=== PATIENT | female | born 1960 | race African-American/Black ===

== ENCOUNTER → 2018-04-10 | Outpatient (CLI) | payer OTHER ==
[2018-04-10 15:23] LABS: ABSOLUTE EOSINOPHILS # (AUTO) 0.1 10^3/uL (0.0-0.6); ABSOLUTE MONOCYTES (AUTO) 0.6 10^3/uL (0.1-1.4); ABSOLUTE NEUT (AUTO) 1.8 10^3/uL (1.7-8.2); BASOPHILS % (AUTO) 0.5 % (0-2); EOSINOPHILS % (AUTO) 1.6 % (0-6); HEMATOCRIT 40.1 % (36.0-47.0); HEMOGLOBIN 13.8 g/dL (12.0-15.5); LYMPHOCYTES % (AUTO) 43.5 % (13-45); MEAN CORPUSCULAR HGB CONC 34.5 g/dL (32.0-36.0); MEAN CORPUSCULAR VOLUME 90 fl (80-97); MONOCYTES % (AUTO) 14.1 % (3-13); PLATELET COUNT 245 10^3/uL (150-450); RED BLOOD COUNT 4.46 10^6/uL (3.72-5.28); SEGMENTED NEUTROPHILS % (AUTO) 40.3 % (42-78); TOTAL CELLS COUNTED % (AUTO) 100 %; WHITE BLOOD COUNT 4.5 10^3/uL (4.0-10.5)
[2018-04-10 16:05] LABS: ALANINE AMINOTRANSFERASE 8 U/L (9-52); ALBUMIN 4.4 g/dL (3.5-5.0); ALKALINE PHOSPHATASE 91 U/L (38-126); ANION GAP 13 (5-19); ASPARTATE AMINO TRANSFERASE 14 U/L (14-36); BILIRUBIN,DIRECT 0.2 mg/dL (0.0-0.4); BILIRUBIN,TOTAL 0.2 mg/dL (0.2-1.3); BLOOD UREA NITROGEN 12 mg/dL (7-20); CARBON DIOXIDE 25 mmol/L (22-30); CHLORIDE 106 mmol/L (98-107); GLUCOSE 99 mg/dL (75-110); POTASSIUM 4.3 mmol/L (3.6-5.0); SODIUM 143.5 mmol/L (137-145); TOTAL PROTEIN 7.7 g/dL (6.3-8.2)
== END ==
LOC: CCC 14:30
DX: Z13.9 Encounter for screening, unspecified (principal)
CPT/HCPCS: 36415; 80053; 83036; 84443; 85025

== ENCOUNTER → 2018-04-11 | Outpatient (CLI) | payer OTHER ==
[2018-04-11 15:19] LABS: ABSOLUTE EOSINOPHILS # (AUTO) 0.1 10^3/uL (0.0-0.6); ABSOLUTE LYMPHOCYTES (AUTO) 2.5 10^3/uL (0.5-4.7); ABSOLUTE MONOCYTES (AUTO) 0.6 10^3/uL (0.1-1.4); ABSOLUTE NEUT (AUTO) 1.3 10^3/uL (1.7-8.2); BASOPHILS % (AUTO) 0.9 % (0-2); EOSINOPHILS % (AUTO) 1.1 % (0-6); HEMATOCRIT 41.7 % (36.0-47.0); HEMOGLOBIN 14.2 g/dL (12.0-15.5); LYMPHOCYTES % (AUTO) 55.1 % (13-45); MEAN CORPUSCULAR HEMOGLOBIN 30.6 pg (27.0-33.4); MEAN CORPUSCULAR HGB CONC 34.1 g/dL (32.0-36.0); MEAN CORPUSCULAR VOLUME 90 fl (80-97); MONOCYTES % (AUTO) 13.3 % (3-13); PLATELET COUNT 250 10^3/uL (150-450); RED BLOOD COUNT 4.66 10^6/uL (3.72-5.28); RED CELL DISTRIBUTION WIDTH 14.3 % (11.5-14.0); SEGMENTED NEUTROPHILS % (AUTO) 29.6 % (42-78); TOTAL CELLS COUNTED % (AUTO) 100 %; WHITE BLOOD COUNT 4.5 10^3/uL (4.0-10.5)
[2018-04-11 15:41] LABS: ALANINE AMINOTRANSFERASE 9 U/L (9-52); ALBUMIN 4.6 g/dL (3.5-5.0); ALKALINE PHOSPHATASE 78 U/L (38-126); ANION GAP 9 (5-19); ASPARTATE AMINO TRANSFERASE 15 U/L (14-36); BILIRUBIN,DIRECT 0.2 mg/dL (0.0-0.4); BILIRUBIN,TOTAL 0.5 mg/dL (0.2-1.3); BLOOD UREA NITROGEN 11 mg/dL (7-20); CALCIUM 9.9 mg/dL (8.4-10.2); CARBON DIOXIDE 25 mmol/L (22-30); CHLORIDE 106 mmol/L (98-107); CHOLESTEROL 229.11 mg/dL (0-200); GLUCOSE 96 mg/dL (75-110); POTASSIUM 4.1 mmol/L (3.6-5.0); SODIUM 139.8 mmol/L (137-145); TOTAL PROTEIN 7.7 g/dL (6.3-8.2); TRIGLYCERIDES 108 mg/dL (<150)
[2018-04-11 15:52] LABS: DIRECT LDL 114 mg/dL (<100)
== END ==
LOC: OD 14:31
DX: Z13.9 Encounter for screening, unspecified (principal)
CPT/HCPCS: 36415; 80053; 80061; 83036; 84443; 85025

== ENCOUNTER 2018-07-04 12:57 | Emergency (ER) | payer SELFPAY ==
[2018-07-04] MEDS ORDERED: ONDANSETRON HCL INJ/PF 4 MG/2 ML SDV IV ONE (13:36)
[2018-07-04] MEDS ORDERED: NORMAL SALINE 1000 ML 1,000 ML IV ONE (13:36)
[2018-07-04] MEDS ORDERED: ACETAMINOPHEN 325 MG TABLET PO ONE (13:36)
--- NOTE | 2018-07-04 13:37 | ER Document Report ---
ED Medical Screen (RME) - General Chief Complaint: Head Injury Stated Complaint: LUMP ON FOREHEAD Time Seen by Provider: 07/04/18 13:26 Primary Care Provider: MARY ALICE BURDICK [Primary Care Provider] - Follow up as needed Mode of Arrival: Ambulatory Information source: Patient Notes: Patient presents complaining of head injury 3 weeks ago. Patient states that headache pain has gradually worsened over the past 3 weeks. Patient states that 3 weeks ago she got out of the shower slipped and fell hitting her head on the toilet. Patient states that she did not have any loss of consciousness at the time. Patient denies any initial nausea or vomiting although states that over the past week she has had nausea and vomited 2 days ago. Patient complains of h eadache and fatigue. I have greeted and performed a rapid initial assessment of this patient. A comprehensive ED assessment and evaluation of the patient, analysis of test results and completion of the medical decision making process will be conducted by additional ED providers. TRAVEL OUTSIDE OF THE [place] IN LAST 30 DAYS: No - Related Data Allergies/Adverse Reactions: amoxicillin [Amoxicillin] Allergy (Verified 07/04/18 13:01) ibuprofen Allergy (Verified 07/04/18 13:01) Penicillins Allergy (Verified 07/04/18 13:01) Past Medical History - Past Medical History Cardiac Medical History: Reports: Hx Hypertension Pulmonary Medical History: Reports: Hx Asthma Renal/ Medical History: Denies: Hx Peritoneal Dialysis Past Surgical History: Reports: Hx Hysterectomy - Immunizations Hx Diphtheria, Pertussis, Tetanus Vaccination: Yes Physical Exam - Vital signs Vitals: Temp Pulse Resp BP Pulse Ox 98.7 F 110 H 18 144/102 H 97 07/04/18 13:13 07/04/18 13:13 07/04/18 13:13 07/04/18 13:13 07/04/18 13:13 - Neurological Neuro grossly intact: Yes Orientation: AAOx4 [place] Coma Scale Eye Opening: Spontaneous [place] Coma Scale Verbal: Oriented [place] Com[place] Scale Motor: Obeys Commands [place] Coma Scale Total: 15 Course - Vital Signs Vital signs: Temp Pulse Resp BP Pulse Ox 98.7 F 110 H 18 144/102 H 97 07/04/18 13:13 07/04/18 13:13 07/04/18 13:13 07/04/18 13:13 07/04/18 13:13 Doctor's Discharge - Discharge Referrals: [facility] [Primary Care Provider] - Follow up as needed
--- NOTE | 2018-07-04 15:04 | ER Document Report ---
ED Head/Face/Scalp Injury - General Chief Complaint: Head Injury Stated Complaint: LUMP ON FOREHEAD Time Seen by Provider: 07/04/18 13:26 [facility] [NO LOCAL MD] - Follow up as needed Mode of Arrival: Ambulatory Information source: Patient Notes: 58-year-old female presents to ED for complaint of a head injury 3 weeks ago when she fell in the shower. She states she slipped and fell. She states she has had a knot on her head which is been painful since then. She states she has had some nausea and vomiting off and on over the past week. She states the last time she vomited was 2 days ago. She states she does have a intermittent headache with pain in the face in the area where the hematoma is. TRAVEL OUTSIDE OF THE [place] IN LAST 30 DAYS: No - HPI Patient complains to provider of: Contusion, Injury, Pain, Swelling Injury to: Forehead Location of problem: Forehead Occurred: Other - 3 days Where: Home, Indoors Timing: Still present Context: Fell Loss consciousness: No loss of consciousness Remembers: Injury, Coming to hospital - Related Data Allergies/Adverse Reactions: amoxicillin [Amoxicillin] Allergy (Verified 07/04/18 13:01) ibuprofen Allergy (Verified 07/04/18 13:01) Penicillins Allergy (Verified 07/04/18 13:01) Past Medical History - General Information source: Patient - Social History Smoking Status: Current Every Day Smoker Cigarette use (# per day): Yes - 1/3 ppd Chew tobacco use (# tins/day): No Smoking Education Provided: Yes - 4 min Frequency of alcohol use: Rare Drug Abuse: None Family History: Reviewed & Not Pertinent Patient has suicidal ideation: No Patient has homicidal ideation: No - Past Medical History Cardiac Medical History: Reports: Hx Hypertension Pulmonary Medical History: Reports: Hx Asthma Neurological Medical History: Reports: Hx Migraine Endocrine Medical History: Reports: None Renal/ Medical History: Reports: None Malignancy Medical History: Reports: None GI Medical History: Reports: None Musculoskeletal Medical History: Reports Hx Arthritis Skin Medical History: Reports None Psychiatric Medical History: Reports: None Traumatic Medical History: Reports: None Infectious Medical History: Reports: None Past Surgical History: Reports: Hx Hysterectomy - Immunizations Hx Diphtheria, Pertussis, Tetanus Vaccination: Yes Review of Systems - Review of Systems Constitutional: No symptoms reported EENT: No symptoms reported Cardiovascular: No symptoms reported Respiratory: No symptoms reported Gastrointestinal: Nausea, Vomiting Genitourinary: No symptoms reported Female Genitourinary: No symptoms reported Musculoskeletal: No symptoms reported Skin: No symptoms reported Hematologic/Lymphatic: No symptoms reported Neurological/Psychological: Headaches. denies: Lost consciousness -: Yes All other systems reviewed and negative Physical Exam - Vital signs Vitals: Temp Pulse Resp BP Pulse Ox 98.7 F 110 H 18 144/102 H 97 07/04/18 13:13 07/04/18 13:13 07/04/18 13:13 07/04/18 13:13 07/04/18 13:13 Interpretation: Normal - General General appearance: Appears well, Alert - HEENT Head: Ecchymosis, Tenderness Eyes: Normal Pupils: PERRL Ears: Normal External canal: Normal Tympanic membrane: Normal Sinus: Normal Nasal: Normal Mouth/Lips: Normal Mucous membranes: Normal Pharynx: Normal Neck: Normal - Respiratory Respiratory status: No respiratory distress Chest status: Nontender Breath sounds: Normal Chest palpation: Normal - Cardiovascular Rhythm: Regular Heart sounds: Normal auscultation Murmur: No - Abdominal Inspection: Normal Distension: No distension Bowel sounds: Normal Tenderness: Nontender Organomegaly: No organomegaly - Back Back: Normal, Nontender - Extremities General upper extremity: Normal inspection, Nontender, Normal color, Normal ROM, Normal temperature General lower extremity: Normal inspection, Nontender, Normal color, Normal ROM, Normal temperature, Normal weight bearing. 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 Joyce is the patient states that her headache is worse than her normal headaches. She does have a hematoma to the left forehead. She states she fell 3 days ago. Patient was given Tylenol and Zofran as well as IV fluids. Her pulse is within normal limits blood pressure is normal. He recommended go ahead and do the CAT scan. CAT scan was negative except for the hematoma that was obvious on her forehead. Patient was discharged home. - Vital Signs Vital signs: Temp Pulse Resp BP Pulse Ox 98.7 F 91 18 133/75 H 98 07/04/18 14:56 07/04/18 15:54 07/04/18 15:54 07/04/18 15:54 07/04/18 15:54 Discharge - Discharge Clinical Impression: head injury 3 days ago Traumatic hematoma of forehead Qualifiers: Encounter type: initial encounter Qualified Code(s): S00.83XA - Contusion of other part of head, initial encounter Condition: Stable Disposition: ADMITTED INPATIENT Additional Instructions: CONTUSION: Your injury has resulted in a contusion -- a crushing of the deep tissues. No injury to important structures was detected during the physician's exam. Contusions vary in the amount of pain they cause, and in the length of time required for healing. Typically, the area will become bruised, and will remain painful to touch for two or three weeks. However, most patients are back to working and playing within a few days. After the initial period of rest and cold-packs, your symptoms (together with the doctor's recommendations) will determine how rapidly you can get back to full activity. Usually this means "do what feels okay, but don't do things that hurt." If re-examination was recommended, it's important to follow up as instructed. Call the doctor or return any time if pain increases, if swelling becomes severe, if you develop numbness or weakness in an injured extremity, or if any other alarming symptoms occur. USE OF TYLENOL (ACETAMINOPHEN): Acetaminophen may be taken for pain relief or fever control. It's much safer than aspirin, offering a wider range of "safe" dosages. It is safe during . Some brand names are Tylenol, Panadol, Datril, Anacin 3, Tempra, and Liquiprin. Acetaminophen can be repeated every four hours. The following a re maximum recommended dosages: WEIGHT Dose Drops Elixir Chewable(80mg) (LBS.) drprs=droppers tsp=teaspoon 6 40 mg 0.4 ml (1/2) 6-11 80 mg 0.8 ml (full) tsp 1 tab 12-16 120 mg 1 1/2 drprs 3/4 tsp 1 1/2 tabs 17-23 160 mg 2 drprs 1 tsp 2 tabs 24-30 240 mg 3 drprs 1 1/2 tsp 3 tabs 30-35 320 mg 2 tsp 4 tabs 36-41 360 mg 2 1/4 tsp 4 1/2 tabs 42-47 400 mg 2 1/2 tsp 5 tabs 48-53 480 mg 3 tsp 6 tabs 54-59 520 mg 3 1/4 tsp 6 1/2 tabs 60-64 560 mg 3 1/2 tsp 7 tabs 65-70 600 mg 3 3/4 tsp 7 1/2 tabs 71-76 640 mg 4 tsp 8 tabs 77-82 720 mg 4 1/2 tsp 9 tabs 83-88 800 mg 5 tsp 10 tabs >89 pounds or adults 650 mg to 900 mg Acetaminophen can be repeated every four hours. Maximum dose not to exceed 4000 mg a day. These maximum recommended dosages are slightly higher than the dosages written on the product container, but these dosages are very safe and below the toxic dosage for acetaminophen. ICE PACKS: Apply ice packs frequently against the painful area. Many different schedules are recommended, such as "20 minutes on, 20 minutes off" or "one hour ice, two hours rest." If you need to work, you may need to go longer between ice treatments. You should plan to have the area ice packed AT LEAST one fourth of the time. The ice should be applied over the wrap, tape, or splint, or over a layer of cloth -- not directly against the skin. Some ice bags have a built-in cloth and can be put directly on the skin. Antinausea Medication You have been given a medication to suppress nausea and vomiting. This type of medication can be given as a shot, pill, or suppository. It will usually last for many hours. Pills and shots usually last six to eight hours, suppositories last about 12 hours. For the typical illness, only one or two doses of the medication may be necessary. Mild lightheadedness may occur. This type of medicine can cause drowsiness. Do not drive or operate dangerous machinery while under its influence. Do not mix with alcohol. See your doctor at once if you have muscle spasms or tightness, or uncontrollable motions (particularly of the neck, mouth, or jaw). Persistent vomiting or severe lightheadedness should also be evaluated by the physician. FOLLOW-UP CARE: If you have been referred to a physician for follow-up care, call the physicians office for an appointment as you were instructed or within the next two days. If you experience worsening or a significant change in your symptoms, notify the physician immediately or return to the Emergency Department at any time for re-evaluation. Prescriptions: Ondansetron [Zofran Odt 4 mg Tablet] 1 tab PO Q6H #15 tab.rapdis Forms: Smoking Cessation Education [facility]errals: [facility] [NO LOCAL MD] - Follow up as needed
--- NOTE | 2018-07-04 15:41 | RADIOLOGY REPORT (SQ) ---
EXAM DESCRIPTION: CT HEAD WITHOUT COMPLETED DATE/TIME: 07/04/2018 3:26 pm REASON FOR STUDY: fall head injury headache COMPARISON: CT brain 11/01/2010 TECHNIQUE: Axial images acquired through the brain without intravenous contrast. Images reviewed wi th bone, brain and subdural windows. Additional sagittal and coronal reconstructions were generated. Images stored on PACS. All CT scanners at this facility use dose modulation, iterative reconstruction, and/or weight based d osing when appropriate to reduce radiation dose to as low as reasonably achievable (ALARA). [facility]: Dose Right [facility]: CareDose [facility]: Dose Right [facility]: Teradose 4D [facility]: [employer] RADIATION DOSE: CT Rad equipment meets quality standard of care and radiation dose reduction techniq ues were employed. CTDIvol: 53.2 mGy. DLP: 1150 mGy-cm. mGy. LIMITATIONS: None. FINDINGS: VENTRICLES: Normal size and contour. CEREBRUM: No masses. No hemorrhage. No midline shift. No evidence for acute infarction. Normal gra y/white matter differentiation. No areas of low density in the white matter. CEREBELLUM: No masses. No hemorrhage. No alteration of density. No evidence for acute infarction. EXTRAAXIAL SPACES: No fluid collections. No masses. ORBITS AND GLOBE: No intra- or extraconal masses. Normal contour of globe without masses. CALVARIUM: No fracture. PARANASAL SINUSES: No fluid or mucosal thickening. SOFT TISSUES: Left frontal scalp hematoma without underlying skull fracture or acute intracranial shala nges. OTHER: No other significant finding. IMPRESSION: Left frontal scalp hematoma without underlying skull fracture or acute intracranial sterling ges EVIDENCE OF ACUTE STROKE: NO. COMMENT: Quality ID # [id number]: Final reports with documentation of one or more dose reduction techniques (e.g., Automated exposure control, adjustment of the mA and/or kV according to patient size, use of iterative reconstruction technique) TECHNICAL DOCUMENTATION: JOB ID: [id number] [employer]- All Rights Reserved Reading location - IP/workstation name: [email or web address]
[2018-07-04 15:55] VITALS: BP 133/75
== END 2018-07-04 15:58 | disposition other institution (70) ==
LOC: ER 12:57
DX: S00.83XA Contusion of other part of head, initial encounter (principal); S09.90XA Unspecified injury of head, initial encounter; R11.2 Nausea with vomiting, unspecified; R51 Headache; R22.0 Localized swelling, mass and lump, head; W18.2XXA Fall in (into) shower or empty bathtub, initial encounter; F17.210 Nicotine dependence, cigarettes, uncomplicated; I10 Essential (primary) hypertension; J45.909 Unspecified asthma, uncomplicated
CPT/HCPCS: 99284; 96374; 70450; J2405; J7030

== ENCOUNTER → 2018-09-03 | Outpatient (CLI) | payer OTHER ==
--- NOTE | 2018-09-03 15:23 | RADIOLOGY REPORT (SQ) ---
EXAM DESCRIPTION: NM WHOLE BODY BONE SCAN COMPLETED DATE/TIME: 09/03/2018 2:42 pm REASON FOR STUDY: CONTUSION OF SCALP (S00.03XA) , ABNORMAL FINDINGS ON MR AND CT SCAN COMPARISON: CT and MRI brain studies from recently. RADIONUCLIDE AND DOSE: 21.7 millicuries Tc99m MDP. The route of agent administration: Intravenous. ADDITIONAL DRUGS AND DOSES: None. TECHNIQUE: Routine delayed images at 3 hour post radionuclide injection acquired of the bony skeleto n including anterior and posterior whole-body projections and additional focused images as needed. LIMITATIONS: None. FINDINGS: BONES: Uptake in the left frontal calvarium. This corresponds to lesion seen on recent cr anial imaging. No other suspicious bone uptake appreciated. Presumed degenerative knee and ankle ch anges. KIDNEYS: Symmetric excretion without obstruction. OTHER: No other significant finding. IMPRESSION: Abnormal focus of activity in the left frontal skull. Differential as previously descri bed, including myeloma and oligometastatic disease. However, no other foci are appreciated to sugges t widespread metastatic disease. COMMENT: Quality measure 147: Current bone scan is compared with any available plain radiographs, p rior bone scans, and CT/MRI. TECHNICAL DOCUMENTATION: JOB ID: [id number] [employer]- All Rights Reserved Reading location - IP/workstation name: [email or web address]
== END ==
LOC: RAD 10:41
PROVIDERS: ATTEND Emergency Medicine
DX: S00.03XD Contusion of scalp, subsequent encounter (principal); X58.XXXD Exposure to other specified factors, subsequent encounter
CPT/HCPCS: 78306; A9561; Q9969

== ENCOUNTER 2018-12-10 16:29 | Inpatient (IN) | payer OTHER ==
[2018-12-10] MEDS ORDERED: ONDANSETRON HCL INJ/PF 4 MG/2 ML SDV IV ONE (17:22)
[2018-12-10] MEDS ORDERED: NORMAL SALINE 1000 ML 1,000 ML IV ONE ×2 (17:22→23:30)
--- NOTE | 2018-12-10 17:25 | ER Document Report ---
ED Medical Screen (RME) - General Chief Complaint: Chest Pain Stated Complaint: CHEST TIGHTNESS, RIGHT ABDOMINAL PAIN Time Seen by Provider: 12/10/18 17:09 Primary Care Provider: DENISE JONES MD [Primary Care Provider] - Follow up as needed Notes: Patient is a 58-year-old female who presents to the emergency department with multiple complaints. Patient states about 2 weeks ago she developed a constant pain that is located in the center of her chest. Patient states that over the past 5 days this tightness and chest pain has gotten worse. Patient notices it is worse when walking around. Patient states she does get short of breath as well. Patient also complaint of right mid abdominal pain with nausea vomiting and diarrhea. Patient reports over the past 2 weeks she is unable to tolerate food as she is extremely nauseous by the smell. Patient reports vomiting 3 times in the past 24 hours. Patient also complains of left lower leg pain. Patient reports over the past 2 weeks she has had left lower leg swelling and redness. Patient states it is painful to touch. Patient denies a history of blood clots or long car rides or recent travel. TRAVEL OUTSIDE OF THE [place] IN LAST 30 DAYS: No - Related Data Allergies/Adverse Reactions: amoxicillin [Amoxicillin] Allergy (Verified 12/10/18 16:30) ibuprofen Allergy (Verified 12/10/18 16:30) Penicillins Allergy (Verified 12/10/18 16:30) Past Medical History - Social History Chew tobacco use (# tins/day): No Frequency of alcohol use: None Drug Abuse: None - Past Medical History Cardiac Medical History: Reports: Hx Hypertension Pulmonary Medical History: Reports: Hx Asthma Neurological Medical History: Reports: Hx Migraine Renal/ Medical History: Denies: Hx Peritoneal Dialysis Musculoskeltal Medical History: Reports Hx Arthritis Past Surgical History: Reports: Hx Hysterectomy - Immunizations Hx Diphtheria, Pertussis, Tetanus Vaccination: Yes Physical Exam - Vital signs Vitals: Temp Pulse Resp BP Pulse Ox 98.5 F 126 H 18 125/74 97 12/10/18 16:47 12/10/18 16:47 12/10/18 16:47 12/10/18 16:47 12/10/18 16:47 - Respiratory Respiratory status: No respiratory distress Chest status: Nontender Breath sounds: Normal Chest palpation: Normal - Cardiovascular Rhythm: Tachycardia Heart sounds: Normal auscultation, S1 appreciated, S2 appreciated Course - Re-evaluation Re-evalutation: 12/10/18 17:25 I have greeted and performed a rapid initial assessment of this patient. A comprehensive ED assessment and evaluation of the patient, analysis of test results and completion of the medical decision making process will be conducted by additional ED providers. - Vital Signs Vital signs: Temp Pulse Resp BP Pulse Ox 98.5 F 126 H 18 125/74 97 12/10/18 16:47 12/10/18 16:47 12/10/18 16:47 12/10/18 16:47 12/10/18 16:47 Doctor's Discharge - Discharge Referrals: DENISE JONES MD [Primary Care Provider] - Follow up as needed
[2018-12-10] MEDS ORDERED: METOCLOPRAMIDE HCL INJ/PF 10 MG/2 ML SDV IV ONE ×2 (17:55→22:27)
[2018-12-10 17:56] LABS: ABSOLUTE BASOPHILS # (AUTO) 0.1 10^3/uL (0.0-0.2); ABSOLUTE EOSINOPHILS # (AUTO) 0.1 10^3/uL (0.0-0.6); ABSOLUTE LYMPHOCYTES (AUTO) 1.2 10^3/uL (0.5-4.7); ABSOLUTE MONOCYTES (AUTO) 0.8 10^3/uL (0.1-1.4); ABSOLUTE NEUT (AUTO) 4.5 10^3/uL (1.7-8.2); BASOPHILS % (AUTO) 0.9 % (0-2); EOSINOPHILS % (AUTO) 1.6 % (0-6); HEMOGLOBIN 14.6 g/dL (12.0-15.5); LYMPHOCYTES % (AUTO) 17.9 % (13-45); MEAN CORPUSCULAR HEMOGLOBIN 30.1 pg (27.0-33.4); MEAN CORPUSCULAR VOLUME 89 fl (80-97); PLATELET COUNT 326 10^3/uL (150-450); RED BLOOD COUNT 4.85 10^6/uL (3.72-5.28); SEGMENTED NEUTROPHILS % (AUTO) 67.6 % (42-78); TOTAL CELLS COUNTED % (AUTO) 100 %; WHITE BLOOD COUNT 6.6 10^3/uL (4.0-10.5)
--- NOTE | 2018-12-10 18:10 | RADIOLOGY REPORT (SQ) ---
EXAM DESCRIPTION: CHEST 2 VIEWS COMPLETED DATE/TIME: 12/10/2018 6:00 pm REASON FOR STUDY: chest pain COMPARISON: 08/26/2018 EXAM PARAMETERS: NUMBER OF VIEWS: two views TECHNIQUE: Digital Frontal and Lateral radiographic views of the chest acquired. RADIATION DOSE: NA LIMITATIONS: none FINDINGS: LUNGS AND PLEURA: There appears to be a 10 mm nodular density in the right lower lobe. No infiltrate or effusion. MEDIASTINUM AND HILAR STRUCTURES: No masses or contour abnormalities. HEART AND VASCULAR STRUCTURES: Heart size is borderline. There is no pulmonary edema. BONES: No acute findings. HARDWARE: None in the chest. OTHER: No other significant finding. IMPRESSION: 1. 10 mm right pulmonary nodule. Consider CT for further evaluation. 2. Cardiomegaly without pulmonary edema. TECHNICAL DOCUMENTATION: JOB ID: [id number] [employer]- All Rights Reserved Reading location - IP/workstation name: [email or web address]
[2018-12-10 18:16] LABS: ALBUMIN 4.2 g/dL (3.5-5.0); ALKALINE PHOSPHATASE 57 U/L (38-126); ANION GAP 9 (5-19); ASPARTATE AMINO TRANSFERASE 26 U/L (14-36); BILIRUBIN,DIRECT 0.4 mg/dL (0.0-0.4); BILIRUBIN,TOTAL 0.6 mg/dL (0.2-1.3); BLOOD UREA NITROGEN 8 mg/dL (7-20); CALCIUM 9.6 mg/dL (8.4-10.2); CARBON DIOXIDE 25 mmol/L (22-30); CHLORIDE 104 mmol/L (98-107); GLUCOSE 103 mg/dL (75-110); POTASSIUM 4.2 mmol/L (3.6-5.0); TOTAL PROTEIN 7.3 g/dL (6.3-8.2)
[2018-12-10] MEDS: NORMAL SALINE 1000 ML 1,000 ML IV PRN ×2 (20:26→23:03)
--- NOTE | 2018-12-10 21:50 | RADIOLOGY REPORT (SQ) ---
EXAM DESCRIPTION: CT CHEST ANGIOGRAPHY WITHOUT THEN WITH IV CONTRAST, CT ABDOMEN PELVIS WITH IV CONTRAST COMPLETED DATE/TME: 12/10/2018 20:38 (accession [id number]), 12/10/2018 20:16 (accession [id number]) CLINICAL HISTORY: 58 years, Female, tachy pain COMPARISON: None. TECHNIQUE: CT angiography of the pulmonary arteries and CT of the abdomen and pelvis was performed following intravenous administration of contrast. Coronal and bilateral oblique maximum intensity projections (MIPS) were created. Images stored on PACS. All CT scanners at this facility use dose modulation, iterative reconstruction, and/or weight based dosing when appropriate to reduce radiation dose to as low as reasonably achievable (ALARA). [facility]: Dose Right [facility]: CareDose [facility]: Dose Right [facility]: Teradose 4D [facility]: [employer] LIMITATIONS: None. FINDINGS: Chest: Evaluation through the lungs reveals bilateral apical centrilobular lucency raising the possibility of mild/early emphysema. No focal opacity, pleural effusion or pneumothorax. There is minimal dependent basilar atelectasis and scarring. The tracheobronchial airways are patent. No significant mediastinal or axillary lymphadenopathy by CT measurement criteria. CT angiography: Diagnostic CT angiography enlargement of the main pulmonary artery measuring up to 3.5 cm concerning for pulmonary hypertension. Of the pulmonary arteries without intraluminal filling defect noted to suggest pulmonary arterial embolus. Abdomen and pelvis: The RIGHT kidney reveals diffuse perinephric stranding. A focal region of subcapsular high density is identified measuring up to 64 Hounsfield units within the inferior pole of the RIGHT kidney, also present along the anterior margin of the kidney measuring 50 Hounsfield units suggestive of subcapsular hematoma of uncertain etiology. Perinephric high density as detailed above suggestive of subcapsular hematoma of uncertain etiology. There is associated diffuse perinephric stranding with trace high density contents along the course of the renal capsule and minimally along the RIGHT paracolic gutter compatible with trace retroperitoneal hemorrhage. Focal area of nonspecific increased density within the proximal pancreas, may be within normal limits for the patient. However the possibility of small hematoma, considered less likely, cannot be completely excluded. This may be further evaluated on follow-up imaging. There is no associated peripancreatic stranding. The liver, gallbladder, pancreas, spleen, and bilateral adrenal glands are within normal limits. Subcentimeter focus of hypoattenuation present within the RIGHT lobe liver with Hounsfield contents measuring approximately 14 and size of approximately 5 mm suggestive of simple hepatic cyst. Mild perinephric stranding of the LEFT kidney and hypoattenuating lesion within the lateral aspect of the renal parenchyma with indeterminate Hounsfield units overall measuring 12 mm. The vessels are patent and normal in caliber. No abdominopelvic lymph nodes are noted to be pathologically enlarged by CT measurement criteria. The bowel is within normal limits without abnormal bowel wall thickness or bowel dilation. Diverticular disease without findings to suggest diverticulitis. No free air. No organizing abdominopelvic fluid collections. The appendix is not visualized. The osseous structures reveal degenerative change. Large volume of RIGHT anterior lateral subcutaneous fat diffuse stranding and more focal high density measuring up to 4.7 x 2.0 cm in thickness with high density components compatible with hematoma. IMPRESSION: 1. Perinephric high density as detailed above suggestive of subcapsular hematoma of uncertain etiology. There is associated diffuse perinephric stranding with trace high density contents along the course of the renal capsule and minimally along the RIGHT paracolic gutter compatible with trace retroperitoneal hemorrhage. 2. Large volume of RIGHT anterior lateral subcutaneous fat diffuse stranding and more focal high density measuring up to 4.7 x 2.0 cm in thickness with high density components compatible with hematoma. 3. Diagnostic pulmonary angiography without findings to suggest pulmonary arterial embolus. 4. The lungs are clear without focal opacity, pleural effusion or pneumothorax. 5. Bilateral apical centrilobular lucency, a nonspecific finding however raising the possibility of early or mild developing emphysema. 6. Enlargement of the main pulmonary artery measuring up to 3.5 cm concerning for pulmonary arterial hypertension. 7. Indeterminate 12 mm LEFT renal cyst. 8. Focal area of nonspecific increased density within the proximal pancreas, may be within normal limits for the patient. However the possibility of small hematoma, considered less likely, cannot be completely excluded. This may be further evaluated on follow-up imaging. There is no associated peripancreatic stranding. Critical findings were discussed with the patient's nurse Jael 12/10/2018 2046 hours. TECHNICAL DOCUMENTATION: Quality ID # 436: Final reports with documentation of one or more dose reduction techniques (e.g., Automated exposure control, adjustment of the mA and/or kV according to patient size, use of iterative reconstruction technique) copyright 2011 [employer]- All Rights Reserved
[2018-12-10] MEDS ORDERED: CEFEPIME 2 GM/D5W RTU 2 GM/50 ML RTUPB IV ONE (22:22)
[2018-12-10] MEDS ORDERED: VANCOMYCIN HCL INJ 1000 MG VIAL IV ONE (22:50)
[2018-12-10] MEDS ORDERED: PANTOPRAZOLE SODIUM 40 MG VIAL IV ONE (22:59)
[2018-12-10] MEDS ORDERED: VANCOMYCIN HCL 0 MG in DEXTROSE 5%-WATER 250 ML IV NR (23:00)
--- NOTE | 2018-12-10 23:03 | ER Document Report ---
Entered by LUANA ERICKSON SCRIBE 12/10/182014 Acting as scribe for:JANI CHEATHAM DO ED General - General Chief Complaint: Chest Pain Stated Complaint: CHEST TIGHTNESS, RIGHT ABDOMINAL PAIN Time Seen by Provider: 12/10/18 17:09 Primary Care Provider: DENISE JONES MD [ACTIVE STAFF] - Follow up as needed Information source: Patient Notes: 58-year-old female who presents to the emergency department today with complaints of chest pain and abdominal pain for the last x5 days. Patient states she has been unable to eat because as soon as she does she vomits it back up. Patient also adds that she has a "friend with her" and she then proceeds to reveal a large mass in the right lower quadrant. Patient is febrile. TRAVEL OUTSIDE OF THE [place] IN LAST 30 DAYS: No - Related Data Allergies/Adverse Reactions: amoxicillin [Amoxicillin] Allergy (Verified 12/10/18 16:30) ibuprofen Allergy (Verified 12/10/18 16:30) Penicillins Allergy (Verified 12/10/18 16:30) Past Medical History - General Information source: Patient - Social History Smoking Status: Current Every Day Smoker Cigarette use (# per day): Yes Chew tobacco use (# tins/day): No Frequency of alcohol use: None Drug Abuse: None Lives with: Family Family History: Reviewed & Not Pertinent Patient has suicidal ideation: No Patient has homicidal ideation: No - Past Medical History Cardiac Medical History: Reports: Hx Hypertension Pulmonary Medical History: Reports: Hx Asthma Neurological Medical History: Reports: Hx Migraine Musculoskeletal Medical History: Reports Hx Arthritis Past Surgical History: Reports: Hx Hysterectomy - Immunizations Hx Diphtheria, Pertussis, Tetanus Vaccination: Yes Review of Systems - Review of Systems Constitutional: See HPI, Fever EENT: No symptoms reported Cardiovascular: See HPI, Chest pain Respiratory: No symptoms reported Gastrointestinal: See HPI, Abdominal pain, Nausea, Vomiting Genitourinary: No symptoms reported Female Genitourinary: No symptoms reported Musculoskeletal: No symptoms reported Skin: No symptoms reported Hematologic/Lymphatic: No symptoms reported Neurological/Psychological: No symptoms reported -: Yes All other systems reviewed and negative Physical Exam - Vital signs Vitals: Temp Pulse Resp BP Pulse Ox 98.5 F 126 H 18 125/74 97 12/10/18 16:47 12/10/18 16:47 12/10/18 16:47 12/10/18 16:47 12/10/18 16:47 Interpretation: Tachycardic - General General appearance: Alert In distress: Mild - HEENT Head: Normocephalic Eyes: Normal Pupils: PERRL - Respiratory Respiratory status: No respiratory distress Chest status: Nontender Breath sounds: Normal Chest palpation: Normal - Cardiovascular Rhythm: Regular, Tachycardia Heart sounds: Normal auscultation Murmur: No - Abdominal Inspection: Normal Distension: No distension Bowel sounds: Normal Tenderness: Tender, Guarding, Other - Right lower quadrant mass palpated. No evidence for hernia. Organomegaly: No organomegaly - Back Back: Normal, Tender, CVA tenderness - Extremities General upper extremity: Normal inspection, Nontender, Normal color, Normal ROM, Normal temperature General lower extremity: Normal inspection, Nontender, Normal color, Normal ROM, Normal temperature, Normal weight bearing. No: Sulma's sign - Neurological Neuro grossly intact: Yes Cognition: Normal Orientation: AAOx4 [place]pin Coma Scale Eye Opening: Spontaneous [place] Coma Scale Verbal: Oriented [place] Coma Scale Motor: Obeys Commands Crispin Coma Scale Total: 15 Speech: Normal Motor strength normal: LUE, RUE, LLE, RLE Sensory: Normal - Psychological Associated symptoms: Other - Odd affect - Skin Skin Temperature: Warm Skin Moisture: Diaphoretic Skin Color: Normal Course - Re-evaluation Re-evalutation: 12/10/18 22:00 Urology at [facility]. 22:20 Trauma surgeon at [facility] called--discussed patient and CT reviewed results. asked general surgery to consult and will accept for transfer if appropriate. 22:30 Discussed with general surgery. Will see patient. 22:40 Discussed with urology at [facility]. Unlikely need for urology intervention. Would monitor. No evidence for renal abscess. 22:50 Dr. Lacey has come to see the patient and will admit. Patient is a 58-year-old female who comes in complaining of chest abdomen pelvis pain and vomiting. No evidence for PE on chest CT. Concern for subcapsular hematoma of right kidney. Concern for subcutaneous collection on right. Patient will be admitted to the surgery service here. Blood work benign. Urine pending. Cefepime and vancomycin ordered for possible subcutaneous fluid collection consistent with abscess. Patient is agreeable to this plan. Patient is still having nausea. Initial heart rate 130s now down to 109. - Vital Signs Vital signs: Temp Pulse Resp BP Pulse Ox 98.7 F 126 H 23 H 134/73 H 97 12/10/18 20:01 12/10/18 16:47 12/10/18 20:01 12/10/18 20:01 12/10/18 20:01 - Laboratory Result Diagrams: 12/10/18 17:32 12/10/18 17:32 Laboratory results interpreted by me: 12/10/18 17:32 Creatinine 0.44 L - Diagnostic Test Radiology reviewed: Reports reviewed - EKG Interpretation by Me EKG shows normal: Sinus rhythm Rate: Tachycardia Critical Care Note - Critical Care Note Total time excluding time spent on procedures (mins): 45 - Evaluation and management of tachycardic patient with abdominal pain and possible bleed versus infection on CT, counseling patient, consultation with specialists Discharge - Discharge Clinical Impression: Tachycardia, SIRS (systemic inflammatory response syndrome) Abdominal pain Qualifiers: Abdominal location: unspecified location Qualified Code(s): R10.9 - Unspecified abdominal pain Condition: Stable Disposition: ADMITTED INPATIENT Admitting Provider: Surgicalist - [facility] Unit Admitted: Surgical Floor Scribe Attestation: 12/10/18 22:58 I personally performed the services described in the documentation, reviewed and edited the documentation which was dictated to the scribe in my presence, and it accurately records my words and actions. I personally performed the services described in the documentation, reviewed and edited the documentation which was dictated to the scribe in my presence, and it accurately records my words and actions.
--- NOTE | 2018-12-10 23:17 | PDOC H&P ---
History of Present Illness Patient complains of: right sided abdominal pain, nausea, vomiting History of Present Illness: SUSANA MART is a 58 year old female with a 2-week history of right-sided subcutaneous swelling of the abdominal wall with increasing amounts of pain. She reports subjective chills, but denies fevers. The patient reports that she has recently been treated for "an infection" with prednisone for 60 days. The patient stopped taking the prednisone because she believes that she is allergic to it. Shortly after stopping her steroids, she noticed a small area in her right lateral abdominal wall subcutaneous tissue. It began the size of a nickel and continued to enlarge. She denies any history of trauma, anticoagulants, antiplatelets, subcutaneous injections, or other precipitating factors. She denies chest pain, shortness of breath, dizziness, orthostasis, melena, hematochezia, hematemesis, headache. She does report abdominal wall discomfort, nausea, vomiting, chills, malaise. Past Medical History Cardiac Medical History: Reports: Hypertension Pulmonary Medical History: Reports: Asthma Neurological Medical History: Reports: Migraine Musculoskeltal Medical History: Reports: Arthritis Past Surgical History Past Surgical History: Reports: Hysterectomy Social History Smoking Status: Current Every Day Smoker Family History Family History: Reviewed & Not Pertinent Parental Family History Reviewed: Yes Children Family History Reviewed: Yes Sibling(s) Family History Reviewed.: Yes Medication/Allergy Home Medications: Butalb/Acetaminophen/Caffeine [Fioricet (50-325-40 mg) Tablet] 1 tab PO Q4HP PRN 04/08/14 Diazepam [Valium 5 mg Tablet] 5 mg PO DAILY 04/08/14 Oxycodone HCl 10 mg PO QID 04/08/14 Topiramate [Topamax] 50 mg PO 04/08/14 Ondansetron [Zofran Odt 4 mg Tablet] 1 tab PO Q6H #15 tab.rapdis 07/04/18 Oxycodone HCl/Acetaminophen [Percocet 5-325 mg Tablet] 1 - 2 tab PO Q4H PRN #30 tablet 08/26/18 Promethazine HCl [Phenergan 25 mg Tablet] 1 - 2 tab PO Q6H PRN #20 tablet 08/26/18 Allergies/Adverse Reactions: amoxicillin [Amoxicillin] Allergy (Verified 12/10/18 16:30) ibuprofen Allergy (Verified 12/10/18 16:30) Penicillins Allergy (Verified 12/10/18 16:30) Review of Systems Constitutional: PRESENT: chills Eyes: ABSENT: visual disturbances Ears: ABSENT: hearing changes Nose, Mouth, and Throat: ABSENT: sore throat Cardiovascular: ABSENT: chest pain Respiratory: ABSENT: cough Gastrointestinal: PRESENT: abdominal pain, nausea, vomiting. ABSENT: coffee ground emesis, hematemesis, hematochezia, melena Genitourinary: ABSENT: dysuria Musculoskeletal: ABSENT: back pain Integumentary: PRESENT: lesions - Subcutaneous right lower quadrant abdominal wall lesion. Neurological: PRESENT: confusion, other - Forgetfullness. ABSENT: convulsions, dizziness, paresthesias Psychiatric: ABSENT: anxiety, depression Endocrine: ABSENT: cold intolerance, heat intolerance Hematologic/Lymphatic: ABSENT: easy bleeding, easy bruising Physical Exam Vital Signs: Temp Pulse Resp BP Pulse Ox 98.7 F 126 H 23 H 134/73 H 97 12/10/18 20:01 12/10/18 16:47 12/10/18 20:01 12/10/18 20:01 12/10/18 20:01 Intake & Output 12/09/18 12/10/18 12/11/18 06:59 06:59 06:59 Intake Total 1000 Balance 1000 Weight 95.254 kg General appearance: PRESENT: obese Eye exam: PRESENT: EOMI, PERRLA. ABSENT: scleral icterus Mouth exam: PRESENT: neck supple Neck exam: ABSENT: meningismus, tenderness, thyromegaly, tracheal deviation Respiratory exam: PRESENT: clear to auscultation jared. ABSENT: chest wall tender ness Cardiovascular exam: PRESENT: tachycardia Pulses: PRESENT: normal radial pulses, normal dorsalis pedis pul Vascular exam: PRESENT: normal capillary refill. ABSENT: pallor GI/Abdominal exam: PRESENT: soft, tenderness - see skin exam. ABSENT: distended, guarding Rectal exam: PRESENT: deferred Extremities exam: PRESENT: other - mild LE edema. ABSENT: clubbing Musculoskeletal exam: PRESENT: ambulatory Neurological exam: PRESENT: alert, awake, oriented to person, oriented to place, oriented to time, oriented to situation, CN II-XII grossly intact Psychiatric exam: ABSENT: agitated, anxious, depressed Focused psych exam: ABSENT: delusional Skin exam: PRESENT: other - large, 8cm area of subcutaneous induration to the RLQ. It is TTP. Results Laboratory Results: 12/10/18 17:32 12/10/18 17:32 12/10/18 12/10/18 12/10/18 17:32 17:32 20:30 WBC 6.6 RBC 4.85 Hgb 14.6 Hct 43.0 MCV 89 MCH 30.1 MCHC 34.0 RDW 14.0 Plt Count 326 Seg Neutrophils % 67.6 Lymphocytes % 17.9 Monocytes % 12.0 Eosinophils % 1.6 Basophils % 0.9 Absolute Neutrophils 4.5 Absolute Lymphocytes 1.2 Absolute Monocytes 0.8 Absolute Eosinophils 0.1 Absolute Basophils 0.1 Sodium 138.2 Potassium 4.2 Chloride 104 Carbon Dioxide 25 Anion Gap 9 BUN 8 Creatinine 0.44 L Est GFR ( Amer) > 60 Est GFR (Non-Af Amer) > 60 Glucose 103 Lactic Acid 1.5 Calcium 9.6 Total Bilirubin 0.6 AST 26 Alkaline Phosphatase 57 Total Protein 7.3 Albumin 4.2 Lipase 228.9 12/10/18 12/10/18 17:32 20:30 Troponin I 0.065 0.064 Impressions: Chest X-Ray 12/10/18 17:22 IMPRESSION: 1. 10 mm right pulmonary nodule. Consider CT for further evaluation. 2. Cardiomegaly without pulmonary edema. Abdomen/Pelvis CT 12/10/18 20:16 IMPRESSION: 1. Perinephric high density as detailed above suggestive of subcapsular hematoma of uncertain etiology. There is associated diffuse perinephric stranding with trace high density contents along the course of the renal capsule and minimally along the RIGHT paracolic gutter compatible with trace retroperitoneal hemorrhage. 2. Large volume of RIGHT anterior lateral subcutaneous fat diffuse stranding and more focal high density measuring up to 4.7 x 2.0 cm in thickness with high density components compatible with hematoma. 3. Diagnostic pulmonary angiography without findings to suggest pulmonary arterial embolus. 4. The lungs are clear without focal opacity, pleural effusion or pneumothorax. 5. Bilateral apical centrilobular lucency, a nonspecific finding however raising the possibility of early or mild developing emphysema. 6. Enlargement of the main pulmonary artery measuring up to 3.5 cm concerning for pulmonary arterial hypertension. 7. Indeterminate 12 mm LEFT renal cyst. 8. Focal area of nonspecific increased density within the proximal pancreas, may be within normal limits for the patient. However the possibility of small hematoma, considered less likely, cannot be completely excluded. This may be further evaluated on follow-up imaging. There is no associated peripancreatic stranding. Critical findings were discussed with the patient's nurse Jael 12/10/2018 2046 hours. TECHNICAL DOCUMENTATION: Quality ID # 436: Final reports with documentation of one or more dose reduction techniques (e.g., Automated exposure control, adjustment of the mA and/or kV according to patient size, use of iterative reconstruction technique) copyright 2010 [employer]- All Rights Reserved Chest/Abdomen CTA 12/10/18 20:38 IMPRESSION: 1. Perinephric high density as detailed above suggestive of subcapsular hematoma of uncertain etiology. There is associated diffuse perinephric stranding with trace high density contents along the course of the renal capsule and minimally along the RIGHT paracolic gutter compatible with trace retroperitoneal hemorrhage. 2. Large volume of RIGHT anterior lateral subcutaneous fat diffuse stranding and more focal high density measuring up to 4.7 x 2.0 cm in thickness with high density components compatible with hematoma. 3. Diagnostic pulmonary angiography without findings to suggest pulmonary arterial embolus. 4. The lungs are clear without focal opacity, pleural effusion or pneumothorax. 5. Bilateral apical centrilobular lucency, a nonspecific finding however raising the possibility of early or mild developing emphysema. 6. Enlargement of the main pulmonary artery measuring up to 3.5 cm concerning for pulmonary arterial hypertension. 7. Indeterminate 12 mm LEFT renal cyst. 8. Focal area of nonspecific increased density within the proximal pancreas, may be within normal limits for the patient. However the possibility of small hematoma, considered less likely, cannot be completely excluded. This may be further evaluated on follow-up imaging. There is no associated peripancreatic stranding. Critical findings were discussed with the patient's nurse Jael 12/10/2018 2046 hours. TECHNICAL DOCUMENTATION: Quality ID # 436: Final reports with documentation of one or more dose reduction techniques (e.g., Automated exposure control, adjustment of the mA and/or kV according to patient size, use of iterative reconstruction technique) copyright 2010 [employer]- All Rights Reserved Assessment & Plan - Diagnosis (1) Abscess of abdominal wall Is this a current diagnosis for this admission?: Yes - Plan Summary Plan Summary: This is a 58-year-old female with an enlarging, tender, indurated area of her right lower quadrant abdominal wall. I have reviewed her CT scan. She has stranding and fluid present in the subcutaneous tissues of the right lower quadrant. The radiologist has read the scan as likely hematoma. The patient has no recent traumatic history or anticoagulant use. I believe that she is experiencing an abscess of the subcutaneous tissues in the right lower quadrant abdominal wall. It is likely been compounded by her long-term prednisone use. I recommended admission to the hospital, intravenous antibiotics, fluid resuscitation, and likely incision and drainage in the operating room tomorrow. There is also mention of perinephric stranding, which may be coincidental. I will check a urinalysis, to ensure that she does not have signs consistent with pyelonephritis. Repeat labs tomorrow. N.p.o. after midnight.
[2018-12-10 23:41] LABS: APPEARANCE,URINE CLEAR; BILIRUBIN,URINE NEGATIVE (NEGATIVE); COLOR,URINE YELLOW; GLUCOSE, URINE NEGATIVE (NEGATIVE); KETONES,URINE 80 mg/dL (NEGATIVE); LEUKOCYTE ESTERASE,URINE NEGATIVE (NEGATIVE); NITRITE,URINE NEGATIVE (NEGATIVE); PROTEIN,URINE NEGATIVE (NEGATIVE); UROBILINOGEN,URINE NEGATIVE mg/dL (<2.0)
[2018-12-10 23:41] LABS: URINE AMPHETAMINES SCREEN NEGATIVE; URINE BARBITURATES SCREEN UNCONFIRMED POSITIVE; URINE BENZODIAZEPINES SCREEN NEGATIVE; URINE COCAINE SCREEN NEGATIVE; URINE MARIJUANA (THC) SCREEN NEGATIVE; URINE METHADONE SCREEN NEGATIVE; URINE PHENCYCLIDINE SCREEN NEGATIVE
[2018-12-10 23:43] LABS: URINE SPECIFIC GRAVITY > 1.060
[2018-12-10] MEDS: MORPHINE SULFATE 10 MG/ML INJ IV PRN (23:50)
[2018-12-10] MEDS: ONDANSETRON HCL INJ/PF 4 MG/2 ML SDV IV PRN (23:51)
[2018-12-11] MEDS ORDERED: VANCOMYCIN HCL INJ 1000 MG VIAL IV PRN (01:21)
--- NOTE | 2018-12-11 01:31 | PDOC CONSULTATION ---
Consultation Consult Date: 12/10/18 Provider Consulted: MADDIE SUN Consult reason:: equivocal cardiac troponin History of Present Illness Admission Date/PCP: 12/10/18 23:12 History of Present Illness: SUSANA MART is a 58 year old female admitted by the surgical service for renal hematoma versus abscess. She was complaining at one point about some central nonradiating chest pain has been going on for 5 days. It was episodic. Currently she is pain-free. She denies any history of heart disease. I will say, that this patient's history that she provides is somewhat questionable. She says she only smokes a pack of cigarettes every 3 days but on her chest CT she had evidence of emphysema. She denies any prior cardiac history. No history of stress test. No history of cardiac catheterization. No family history of coronary artery disease. She was tachycardic when she came in. In itial troponin was 0.065 when she came in and her repeat was 0.064. As noted previously, she is pain-free. Consultation was requested because of the elevated troponin. Past Medical History Cardiac Medical History: Reports: Hypertension Pulmonary Medical History: Reports: Asthma Neurological Medical History: Reports: Migraine Musculoskeltal Medical History: Reports: Arthritis Past Surgical History Past Surgical History: Reports: Hysterectomy Social History Lives with: Family Smoking Status: Current Every Day Smoker Family History Family History: Reviewed & Not Pertinent Parental Family History Reviewed: Yes - No history of coronary artery disease Children Family History Reviewed: NA Sibling(s) Family History Reviewed.: NA Medication/Allergy Home Medications: Butalb/Acetaminophen/Caffeine [Fioricet (50-325-40 mg) Tablet] 1 tab PO Q4HP PRN 04/08/14 Diazepam [Valium 5 mg Tablet] 5 mg PO DAILY 04/08/14 Oxycodone HCl 10 mg PO QID 04/08/14 Topiramate [Topamax] 50 mg PO 04/08/14 Ondansetron [Zofran Odt 4 mg Tablet] 1 tab PO Q6H #15 tab.rapdis 07/04/18 Oxycodone HCl/Acetaminophen [Percocet 5-325 mg Tablet] 1 - 2 tab PO Q4H PRN #30 tablet 08/26/18 Promethazine HCl [Phenergan 25 mg Tablet] 1 - 2 tab PO Q6H PRN #20 tablet 08/26/18 Allergies/Adverse Reactions: amoxicillin [Amoxicillin] Allergy (Verified 12/10/18 16:30) ibuprofen Allergy (Verified 12/10/18 16:30) Penicillins Allergy (Verified 12/10/18 16:30) Review of Systems All systems: reviewed and no additional remarkable complaints except as stated - All systems were reviewed and were negative except as noted in the HPI Physical Exam Vital Signs: Temp Pulse Resp BP Pulse Ox 98.7 F 126 H 23 H 134/73 H 97 12/10/18 20:01 12/10/18 16:47 12/10/18 20:01 12/10/18 20:01 12/10/18 20:01 Intake & Output 12/09/18 12/10/18 12/11/18 06:59 06:59 06:59 Intake Total 3882 Balance 3882 Weight 95.254 kg General appearance: PRESENT: no acute distress, cooperative, disheveled, obese Head exam: PRESENT: atraumatic, normocephalic Eye exam: PRESENT: EOMI, PERRLA. ABSENT: conjunctival injection, nystagmus, scleral icterus Ear exam: PRESENT: normal external ear exam Mouth exam: PRESENT: moist, neck supple Throat exam: ABSENT: post pharyngeal erythema Neck exam: PRESENT: full ROM. ABSENT: carotid bruit, JVD, lymphadenopathy, meningismus, tenderness, thyromegaly Respiratory exam: PRESENT: clear to auscultation jared, symmetrical, unlabored. ABSENT: accessory muscle use, chest wall tenderness, crackles, prolonged expiratory phas, rhonchi, tachypnea, wheezes Cardiovascular exam: PRESENT: tachycardia Pulses: PRESENT: normal carotid pulses Vascular exam: PRESENT: normal capillary refill GI/Abdominal exam: PRESENT: normal bowel sounds, soft, tenderness - Large swol lane area right lower quadrant. ABSENT: ascites, distended, guarding, rebound Extremities exam: ABSENT: clubbing, pedal edema Musculoskeletal exam: PRESENT: normal inspection. ABSENT: deformity Neurological exam: PRESENT: alert, awake, oriented to person, oriented to place, oriented to situation, CN II-XII grossly intact. ABSENT: motor sensory deficit Psychiatric exam: PRESENT: normal mood, unusual affect Skin exam: PRESENT: dry, warm Results Laboratory Results: 12/10/18 17:32 12/10/18 17:32 12/10/18 12/10/1812/10/19 17:32 17:32 20:30 WBC 6.6 RBC 4.85 Hgb 14.6 Hct 43.0 MCV 89 MCH 30.1 MCHC 34.0 RDW 14.0 Plt Count 326 Seg Neutrophils % 67.6 Lymphocytes % 17.9 Monocytes % 12.0 Eosinophils % 1.6 Basophils % 0.9 Absolute Neutrophils 4.5 Absolute Lymphocytes 1.2 Absolute Monocytes 0.8 Absolute Eosinophils 0.1 Absolute Basophils 0.1 Sodium 138.2 Potassium 4.2 Chloride 104 Carbon Dioxide 25 Anion Gap 9 BUN 8 Creatinine 0.44 L Est GFR ( Amer) > 60 Est GFR (Non-Af Amer) > 60 Glucose 103 Lactic Acid 1.5 Calcium 9.6 Total Bilirubin 0.6 AST 26 Alkaline Phosphatase 57 Total Protein 7.3 Albumin 4.2 Lipase 228.9 Urine Color Urine Appearance Urine pH Ur Specific [place] Urine Protein Urine Glucose (UA) Urine Ketones Urine Blood Urine Nitrite Ur Leukocyte Esterase Urine WBC (Auto) Urine RBC (Auto) 12/10/18 22:45 WBC RBC Hgb Hct MCV MCH MCHC RDW Plt Count Seg Neutrophils % Lymphocytes % Monocytes % Eosinophils % Basophils % Absolute Neutrophils Absolute Lymphocytes Absolute Monocytes Absolute Eosinophils Absolute Basophils Sodium Potassium Chloride Carbon Dioxide Anion Gap BUN Creatinine Est GFR ( Amer) Est GFR (Non-Af Amer) Glucose Lactic Acid Calcium Total Bilirubin AST Alkaline Phosphatase Total Protein Albumin Lipase Urine Color YELLOW Urine Appearance CLEAR Urine pH 6.0 Ur Specific [place] > 1.060 Urine Protein NEGATIVE Urine Glucose (UA) NEGATIVE Urine Ketones 80 H Urine Blood SMALL H Urine Nitrite NEGATIVE Ur Leukocyte Esterase NEGATIVE Urine WBC (Auto) 3 Urine RBC (Auto) 4 12/10/18 12/10/18 17:32 20:30 Troponin I 0.065 0.064 Impressions: Chest X-Ray 12/10/18 17:22 IMPRESSION: 1. 10 mm right pulmonary nodule. Consider CT for further evaluation. 2. Cardiomegaly without pulmonary edema. Abdomen/Pelvis CT 12/10/18 20:16 IMPRESSION: 1. Perinephric high density as detailed above suggestive of subcapsular hematoma of uncertain etiology. There is associated diffuse perinephric stranding with trace high density contents along the course of the renal capsule and minimally along the RIGHT paracolic gutter compatible with trace retroperitoneal hemorrhage. 2. Large volume of RIGHT anterior lateral subcutaneous fat diffuse stranding and more focal high density measuring up to 4.7 x 2.0 cm in thickness with high density components compatible with hematoma. 3. Diagnostic pulmonary angiography without findings to suggest pulmonary arterial embolus. 4. The lungs are clear without focal opacity, pleural effusion or pneumothorax. 5. Bilateral apical centrilobular lucency, a nonspecific finding however raising the possibility of early or mild developing emphysema. 6. Enlargement of the main pulmonary artery measuring up to 3.5 cm concerning for pulmonary arterial hypertension. 7. Indeterminate 12 mm LEFT renal cyst. 8. Focal area of nonspecific increased density within the proximal pancreas, may be within normal limits for the patient. However the possibility of small hematoma, considered less likely, cannot be completely excluded. This may be further evaluated on follow-up imaging. There is no associated peripancreatic stranding. Critical findings were discussed with the patient's nurse Jael 12/10/2018 2046 hours. TECHNICAL DOCUMENTATION: Quality ID # 436: Final reports with documentation of one or more dose reduction techniques (e.g., Automated exposure control, adjustment of the mA and/or kV according to patient size, use of iterative reconstruction technique) copyright 2011 [employer]- All Rights Reserved Chest/Abdomen CTA 12/10/18 20:38 IMPRESSION: 1. Perinephric high density as detailed above suggestive of subcapsular hematoma of uncertain etiology. There is associated diffuse perinephric stranding with trace high density contents along the course of the renal capsule and minimally along the RIGHT paracolic gutter compatible with trace retroperitoneal hemorrhage. 2. Large volume of RIGHT anterior lateral subcutaneous fat diffuse stranding and more focal high density measuring up to 4.7 x 2.0 cm in thickness with high density components compatible with hematoma. 3. Diagnostic pulmonary angiography without findings to suggest pulmonary arterial embolus. 4. The lungs are clear without focal opacity, pleural effusion or pneumothorax. 5. Bilateral apical centrilobular lucency, a nonspecific finding however raising the possibility of early or mild developing emphysema. 6. Enlargement of the main pulmonary artery measuring up to 3.5 cm concerning for pulmonary arterial hypertension. 7. Indeterminate 12 mm LEFT renal cyst. 8. Focal area of nonspecific increased density within the proximal pancreas, may be within normal limits for the patient. However the possibility of small hematoma, considered less likely, cannot be completely excluded. This may be further evaluated on follow-up imaging. There is no associated peripancreatic stranding. Critical findings were discussed with the patient's nurse Jael 12/10/20186 hours. TECHNICAL DOCUMENTATION: Quality ID # 436: Final reports with documentation of one or more dose reduction techniques (e.g., Automated exposure control, adjustment of the mA and/or kV according to patient size, use of iterative reconstruction technique) copyright 2011 [employer]- All Rights Reserved Assessment and Plan - Diagnosis (1) Elevated troponin Is this a current diagnosis for this admission?: Yes Plan: She has some evidence of LVH on her EKG and reports to me that she takes HCTZ at home, but she says she was given HCTZ for some swelling she gets in her legs intermittently. I suspect the slightly elevated troponin is most likely from some demand ischemia from her tachycardia. She is not having any chest pain now, and I suspect the episodes that she described as chest pain may have actually been some abdominal pain. We will trend her troponins and watch her on the monitor. Depending on her clinical course, she may need an echocardiogram and a stress test, but at this particular point in time neither of those is urgent. (2) Abscess of abdominal wall Is this a current diagnosis for this admission?: Yes Plan: Management per surgery - Time Time Spent with patient: 35 or more minutes
[2018-12-11] MEDS ORDERED: VANCOMYCIN HCL 1,250 MG in DEXTROSE 5%-WATER 250 ML IV ONE ×2 (02:00→04:00)
--- NOTE | 2018-12-11 02:31 | RADIOLOGY REPORT (SQ) ---
US LOWER EXTREMITY VEINS EXAM DATE: 12/10/2018 5:22 PM CDT HISTORY: Leg pain and swelling. COMPARISON: None. TECHNIQUE: Grayscale, color Doppler, and spectral Doppler images of the left lower extremity were performed. FINDINGS: The common femoral, superficial femoral and popliteal veins are patent and compressible. Normal augmentation and color Doppler blood flow in the aforementioned veins. The visualized calf veins are also patent. IMPRESSION: No evidence of deep venous thrombosis in the left lower extremity.
[2018-12-11] MEDS: MORPHINE SULFATE 10 MG/ML INJ IV PRN ×5 (04:07→20:52)
[2018-12-11] MEDS: ONDANSETRON HCL INJ/PF 4 MG/2 ML SDV IV PRN ×4 (04:08→16:40)
[2018-12-11 05:43] LABS: ABSOLUTE EOSINOPHILS # (AUTO) 0.1 10^3/uL (0.0-0.6); ABSOLUTE LYMPHOCYTES (AUTO) 0.9 10^3/uL (0.5-4.7); ABSOLUTE MONOCYTES (AUTO) 0.5 10^3/uL (0.1-1.4); ABSOLUTE NEUT (AUTO) 3.6 10^3/uL (1.7-8.2); BASOPHILS % (AUTO) 0.2 % (0-2); EOSINOPHILS % (AUTO) 1.1 % (0-6); LYMPHOCYTES % (AUTO) 17.3 % (13-45); MEAN CORPUSCULAR HEMOGLOBIN 30.1 pg (27.0-33.4); MEAN CORPUSCULAR HGB CONC 34.1 g/dL (32.0-36.0); MEAN CORPUSCULAR VOLUME 88 fl (80-97); MONOCYTES % (AUTO) 10.1 % (3-13); PLATELET COUNT 256 10^3/uL (150-450); RED BLOOD COUNT 3.97 10^6/uL (3.72-5.28); RED CELL DISTRIBUTION WIDTH 13.7 % (11.5-14.0); SEGMENTED NEUTROPHILS % (AUTO) 71.3 % (42-78); TOTAL CELLS COUNTED % (AUTO) 100 %
[2018-12-11 05:54] LABS: ALKALINE PHOSPHATASE 44 U/L (38-126); AMYLASE 48 U/L (30-110); ANION GAP 6 (5-19); ASPARTATE AMINO TRANSFERASE 18 U/L (14-36); BILIRUBIN,DIRECT 0.3 mg/dL (0.0-0.4); BILIRUBIN,TOTAL 0.4 mg/dL (0.2-1.3); BLOOD UREA NITROGEN 7 mg/dL (7-20); CALCIUM 8.4 mg/dL (8.4-10.2); CARBON DIOXIDE 24 mmol/L (22-30); CHLORIDE 109 mmol/L (98-107); GLUCOSE 106 mg/dL (75-110); POTASSIUM 3.7 mmol/L (3.6-5.0); TOTAL PROTEIN 5.5 g/dL (6.3-8.2)
[2018-12-11] MEDS: RINGERS SOLUTION,LACTATED 1,000 ML IV PRN (08:14)
[2018-12-11] MEDS: CEFEPIME 1 GM/D5W RTU 1 GM/50 ML RTUPB IV SCH ×2 (09:31→22:55)
--- NOTE | 2018-12-11 09:33 | PDOC PROGRESS REPORT ---
Subjective Progress Note for:: 12/11/18 Subjective:: Patient states that she has been having substernal chest pain intermittently over the past couple weeks. She has also been experiencing right lateral lower abdominal wall pain with associated lump that has gotten larger but no fever no drainage. She has been on steroids for a forehead lesion for several weeks. Reason For Visit: RLQ ABSCESS Physical Exam Vital Signs: Temp Pulse Resp BP Pulse Ox 98.4 F 105 H 18 110/70 96 12/11/18 08:06 12/11/18 08:06 12/11/18 08:06 12/11/18 08:06 12/11/18 08:06 Intake & Output 12/10/18 12/11/18 12/12/18 06:59 06:59 06:59 Intake Total 3882 Balance 3882 Weight 95.2 kg General appearance: PRESENT: no acute distress, cooperative Respiratory exam: PRESENT: clear to auscultation jared Cardiovascular exam: PRESENT: tachycardia - With systolic murmur GI/Abdominal exam: PRESENT: other - Soft, nondistended, focal mild tenderness in the right lateral lower abdomen with palpable deep-seated lump with no induration and no erythema and no fluctuance Results Laboratory Results: 12/11/18 04:39 12/11/18 04:39 12/10/18 12/10/18 12/10/18 17:32 17:32 20:30 WBC 6.6 RBC 4.85 Hgb 14.6 Hct 43.0 MCV 89 MCH 30.1 MCHC 34.0 RDW 14.0 Plt Count 326 Seg Neutrophils % 67.6 Lymphocytes % 17.9 Monocytes % 12.0 Eosinophils % 1.6 Basophils % 0.9 Absolute Neutrophils 4.5 Absolute Lymphocytes 1.2 Absolute Monocytes 0.8 Absolute Eosinophils 0.1 Absolute Basophils 0.1 Sodium 138.2 Potassium 4.2 Chloride 104 Carbon Dioxide 25 Anion Gap 9 BUN 8 Creatinine 0.44 L Est GFR ( Amer) > 60 Est GFR (Non-Af Amer) > 60 Glucose 103 Lactic Acid 1.5 Calcium 9.6 Total Bilirubin 0.6 AST 26 Alkaline Phosphatase 57 Total Protein 7.3 Albumin 4.2 Amylase Lipase 228.9 Urine Color Urine Appearance Urine pH Ur Specific [place] Urine Protein Urine Glucose (UA) Urine Ketones Urine Blood Urine Nitrite Ur Leukocyte Esterase Urine WBC (Auto) Urine RBC (Auto) 12/10/18 12/11/18 12/11/18 22:45 04:39 04:39 WBC 5.0 RBC 3.97 Hgb 12.0 D Hct 35.0 L MCV 88 MCH 30.1 MCHC 34.1 RDW 13.7 Plt Count 256 Seg Neutrophils % 71.3 Lymphocytes % 17.3 Monocytes % 10.1 Eosinophils % 1.1 Basophils % 0.2 Absolute Neutrophils 3.6 Absolute Lymphocytes 0.9 Absolute Monocytes 0.5 Absolute Eosinophils 0.1 Absolute Basophils 0.0 Sodium 138.7 Potassium 3.7 Chloride 109 H Carbon Dioxide 24 Anion Gap 6 BUN 7 Creatinine 0.41 L Est GFR ( Amer) > 60 Est GFR (Non-Af Amer) > 60 Glucose 106 Lactic Acid Calcium 8.4 Total Bilirubin 0.4 AST 18 Alkaline Phosphatase 44 Total Protein 5.5 L Albumin 3.0 L Amylase 48 Lipase 246.7 Urine Color YELLOW Urine Appearance CLEAR Urine pH 6.0 Ur Specific [place] > 1.060 Urine Protein NEGATIVE Urine Glucose (UA) NEGATIVE Urine Ketones 80 H Urine Blood SMALL H Urine Nitrite NEGATIVE Ur Leukocyte Esterase NEGATIVE Urine WBC (Auto) 3 Urine RBC (Auto) 4 12/10/18 12/10/18 12/10/18 17:32 20:30 23:14 Troponin I 0.065 0.064 0.067 12/11/18 04:39 Troponin I 0.066 Impressions: Chest X-Ray 12/10/18 17:22 IMPRESSION: 1. 10 mm right pulmonary nodule. Consider CT for further ev aluation. 2. Cardiomegaly without pulmonary edema. Venous Doppler Study 12/10/18 17:22 IMPRESSION: No evidence of deep venous thrombosis in the left lower extremity. Abdomen/Pelvis CT 12/10/18 20:16 IMPRESSION: 1. Perinephric high density as detailed above suggestive of subcapsular hematoma of uncertain etiology. There is associated diffuse perinephric stranding with trace high density contents along the course of the renal capsule and minimally along the RIGHT paracolic gutter compatible with trace retroperitoneal hemorrhage. 2. Large volume of RIGHT anterior lateral subcutaneous fat diffuse stranding and more focal high density measuring up to 4.7 x 2.0 cm in thickness with high density components compatible with hematoma. 3. Diagnostic pulmonary angiography without findings to suggest pulmonary arterial embolus. 4. The lungs are clear without focal opacity, pleural effusion or pneumothorax. 5. Bilateral apical centrilobular lucency, a nonspecific finding however raising the possibility of early or mild developing emphysema. 6. Enlargement of the main pulmonary artery measuring up to 3.5 cm concerning for pulmonary arterial hypertension. 7. Indeterminate 12 mm LEFT renal cyst. 8. Focal area of nonspecific increased density within the proximal pancreas, may be within normal limits for the patient. However the possibility of small hematoma, considered less likely, cannot be completely excluded. This may be further evaluated on follow-up imaging. There is no associated peripancreatic stranding. Critical findings were discussed with the patient's nurse Jael 12/10/2018 2046 hours. TECHNICAL DOCUMENTATION: Quality ID # 436: Final reports with documentation of one or more dose reduction techniques (e.g., Automated exposure control, adjustment of the mA and/or kV according to patient size, use of iterative reconstruction technique) copyright 2011 [employer]- All Rights Reserved Chest/Abdomen CTA 12/10/18 20:38 IMPRESSION: 1. Perinephric high density as detailed above suggestive of subcapsular hematoma of uncertain etiology. There is associated diffuse perinephric stranding with trace high density contents along the course of the renal capsule and minimally along the RIGHT paracolic gutter compatible with trace retroperitoneal hemorrhage. 2. Large volume of RIGHT anterior lateral subcutaneous fat diffuse stranding and more focal high density measuring up to 4.7 x 2.0 cm in thickness with high density components compatible with hematoma. 3. Diagnostic pulmonary angiography without findings to suggest pulmonary arterial embolus. 4. The lungs are clear without focal opacity, pleural effusion or pneumothorax. 5. Bilateral apical centrilobular lucency, a nonspecific finding however raising the possibility of early or mild developing emphysema. 6. Enlargement of the main pulmonary artery measuring up to 3.5 cm concerning for pulmonary arterial hypertension. 7. Indeterminate 12 mm LEFT renal cyst. 8. Focal area of nonspecific increased density within the proximal pancreas, may be within normal limits for the patient. However the possibility of small hematoma, considered less likely, cannot be completely excluded. This may be further evaluated on follow-up imaging. There is no associated peripancreatic stranding. Critical findings were discussed with the patient's nurse Jael 12/10/2018 2046 hours. TECHNICAL DOCUMENTATION: Quality ID # [id number]: Final reports with documentation of one or more dose reduction techniques (e.g., Automated exposure control, adjustment of the mA and/or kV according to patient size, use of iterative reconstruction technique) copyright 2011 [employer]- All Rights Reserved Assessment & Plan - Diagnosis (1) Abdominal wall hematoma Is this a current diagnosis for this admission?: Yes Plan: Likely an abdominal wall hematoma rather than an abscess since she has no induration and no erythema and no fever and no leukocytosis. Her steroid treatment may have made her tissues fragile with subsequent hematoma of her abdominal wall and possibly at her perinephric region. However with her symptoms she may benefit from an exploration to completely exclude an infection and evacuation of the hematoma if present just for symptomatic relief. However her substernal chest pain symptoms require much more urgent attention. Will consult cardiology. Patient may require stress test. As stated before treatment of her abdominal wall process can wait. We will check coagulation studies. (2) Chest pain Qualifiers: Chest pain type: unspecified Qualified Code(s): R07.9 - Chest pain, unspecified Is this a current diagnosis for this admission?: Yes Plan: With elevated troponin and tachycardia. Pending cardiology evaluation.
--- NOTE | 2018-12-11 10:57 | EKG REPORT ---
SEVERITY:- ABNORMAL ECG - SINUS TACHYCARDIA PROBABLE LEFT ATRIAL ABNORMALITY PROBABLE LVH WITH SECONDARY REPOL ABNRM ANTERIOR Q WAVES, POSSIBLY DUE TO LVH : Confirmed by: Shaw Bland 11-Dec-2018 10:57:15
[2018-12-11 11:25] LABS: INTERNATIONAL RATION (INR) 1.15; PROTHROMBIN TIME 14.8 SEC (11.4-15.4)
[2018-12-11 11:26] LABS: PARTIAL THROMBOPLASTIN TIME 28.5 SEC (23.5-35.8)
[2018-12-11] MEDS: VANCOMYCIN HCL 1,250 MG in DEXTROSE 5%-WATER 250 ML IV SCH ×2 (13:51→22:56)
[2018-12-11] MEDS ORDERED: PROMETHAZINE HCL INJ 25 MG/1 ML VIAL IV ONE (19:30)
[2018-12-11] MEDS ORDERED: VANCOMYCIN HCL INJ 500 MG VIAL ONE (22:50)
[2018-12-11] MEDS ORDERED: VANCOMYCIN HCL INJ 1000 MG VIAL ONE (22:50)
[2018-12-12] MEDS: MORPHINE SULFATE 10 MG/ML INJ IV PRN ×4 (05:57→20:24)
[2018-12-12] MEDS: ONDANSETRON HCL INJ/PF 4 MG/2 ML SDV IV PRN ×4 (05:58→21:26)
[2018-12-12] MEDS: VANCOMYCIN HCL 1,250 MG in DEXTROSE 5%-WATER 250 ML IV SCH (05:59)
[2018-12-12 06:27] LABS: VANCOMYCIN,TROUGH 9.6 ug/mL (5.0-20.0)
[2018-12-12] MEDS: CEFEPIME 1 GM/D5W RTU 1 GM/50 ML RTUPB IV SCH ×2 (10:38→23:34)
[2018-12-12] MEDS: RINGERS SOLUTION,LACTATED 1,000 ML IV PRN ×2 (10:38→23:34)
[2018-12-12] MEDS: METOPROLOL TARTRATE 25 MG TABLET PO SCH ×2 (10:40→21:26)
[2018-12-12 11:02] LABS: HEMATOCRIT 32.8 % (36.0-47.0); MEAN CORPUSCULAR HEMOGLOBIN 29.7 pg (27.0-33.4); MEAN CORPUSCULAR HGB CONC 33.6 g/dL (32.0-36.0); MEAN CORPUSCULAR VOLUME 88 fl (80-97); PLATELET COUNT 244 10^3/uL (150-450); RED BLOOD COUNT 3.72 10^6/uL (3.72-5.28); RED CELL DISTRIBUTION WIDTH 13.7 % (11.5-14.0); WHITE BLOOD COUNT 4.9 10^3/uL (4.0-10.5)
[2018-12-12 11:34] LABS: ABSOLUTE LYMPHOCYTES# (MANUAL) 0.8 10^3/uL (0.5-4.7); ABSOLUTE MONOCYTES # (MANUAL) 0.4 10^3/uL (0.1-1.4); BASOPHILS % (MANUAL) 0 % (0-2); EOSINOPHILS % (MANUAL) 2 % (0-6); LYMPHOCYTES % (MANUAL) 17 % (13-45); MONOCYTES % (MANUAL) 9 % (3-13); NUCLEATED RED BLOOD CELLS 1 /100 WBC (0); RBC MORPHOLOGY COMMENT NORMO-CYTIC/CHROMIC; SEGMENTED NEUTROPHILS % (MAN) 72 % (42-78); TOTAL CELLS COUNTED 100
[2018-12-12 11:35] LABS: PLATELET CLUMPS PRESENT; PLATELET COMMENT ADEQUATE
--- NOTE | 2018-12-12 12:28 | PDOC PROGRESS REPORT ---
Subjective Progress Note for:: 12/12/18 Subjective:: Pains right lateral LQ abdominal wall pains Reason For Visit: RLQ ABSCESS Physical Exam Vital Signs: Temp Pulse Resp BP Pulse Ox 98.5 F 104 H 18 110/66 97 12/12/18 07:56 12/12/18 07:56 12/12/18 07:56 12/12/18 07:56 12/12/18 07:56 Intake & Output 12/11/18 12/12/18 12/13/18 06:59 06:59 06:59 Intake Total 3882 3290 Output Total 150 Balance 3882 3140 Weight 95.2 kg 95.5 kg Exam: abdomen is soft with mild to moderate tenderness along right lateral-anterior abdominal wall. Not any worse than yesterday Results Laboratory Results: 12/12/18 04:58 12/12/18 04:58 12/12/18 12/12/18 04:58 04:58 WBC 4.9 RBC 3.72 Hgb 11.0 L Hct 32.8 L MCV 88 MCH 29.7 MCHC 33.6 RDW 13.7 Plt Count 244 Seg Neutrophils % Not Reportable Lymphocytes % Not Reportable Monocytes % Not Reportable Eosinophils % Not Reportable Basophils % Not Reportable Absolute Neutrophils Not Reportable Absolute Lymphocytes Not Reportable Absolute Monocytes Not Reportable Absolute Eosinophils Not Reportable Absolute Basophils Not Reportable Creatinine 0.38 L Est GFR ( Amer) > 60 Est GFR (Non-Af Amer) > 60 12/10/18 12/10/18 12/10/18 17:32 20:30 23:14 Troponin I 0.065 0.064 0.067 12/11/18 12/11/18 04:39 10:30 Troponin I 0.066 0.053 Impressions: Chest X-Ray 12/10/18 17:22 IMPRESSION: 1. 10 mm right pulmonary nodule. Consider CT for further evaluation. 2. Cardiomegaly without pulmonary edema. Abdomen/Pelvis CT 12/10/18 20:16 IMPRESSION: 1. Perinephric high density as detailed above suggestive of subcapsular hematoma of uncertain etiology. There is associated diffuse perinephric stranding with trace high density contents along the course of the renal capsule and minimally along the RIGHT paracolic gutter compatible with trace retroperitoneal hemorrhage. 2. Large volume of RIGHT anterior lateral subcutaneous fat diffuse stranding and more focal high density measuring up to 4.7 x 2.0 cm in thickness with high density components compatible with hematoma. 3. Diagnostic pulmonary angiography without findings to suggest pulmonary arterial embolus. 4. The lungs are clear without focal opacity, pleural effusion or pneumothorax. 5. Bilateral apical centrilobular lucency, a nonspecific finding however raising the possibility of early or mild developing emphysema. 6. Enlargement of the main pulmonary artery measuring up to 3.5 cm concerning for pulmonary arterial hypertension. 7. Indeterminate 12 mm LEFT renal cyst. 8. Focal area of nonspecific increased density within the proximal pancreas, may be within normal limits for the patient. However the possibility of small hematoma, considered less likely, cannot be completely excluded. This may be further evaluated on follow-up imaging. There is no associated peripancreatic stranding. Critical findings were discussed with the patient's nurse Jael 12/10/2018 2046 hours. TECHNICAL DOCUMENTATION: Quality ID # 436: Final reports with documentation of one or more dose reduction techniques (e.g., Automated exposure control, adjustment of the mA and/or kV according to patient size, use of iterative reconstruction technique) copyright 2011 [employer]- All Rights Reserved Chest/Abdomen CTA 12/10/18 20:38 IMPRESSION: 1. Perinephric high density as detailed above suggestive of subcapsular hematoma of uncertain etiology. There is associated diffuse perinephric stranding with trace high density contents along the course of the renal capsule and minimally along the RIGHT paracolic gutter compatible with trace retroperitoneal hemorrhage. 2. Large volume of RIGHT anterior lateral subcutaneous fat diffuse stranding and more focal high density measuring up to 4.7 x 2.0 cm in thickness with high density components compatible with hematoma. 3. Diagnostic pulmonary angiography without findings to suggest pulmonary arterial embolus. 4. The lungs are clear without focal opacity, pleural effusion or pneumothorax. 5. Bilateral apical centrilobular lucency, a nonspecific finding however raising the possibility of early or mild developing emphysema. 6. Enlargement of the main pulmonary artery measuring up to 3.5 cm concerning for pulmonary arterial hypertension. 7. Indeterminate 12 mm LEFT renal cyst. 8. Focal area of nonspecific increased density within the proximal pancreas, may be within normal limits for the patient. However the possibility of small hematoma, considered less likely, cannot be completely excluded. This may be further evaluated on follow-up imaging. There is no associated peripancreatic stranding. Critical findings were discussed with the patient's nurse Jael 12/10/2018 2046 hours. TECHNICAL DOCUMENTATION: Quality ID # [id number]: Final reports with documentation of one or more dose reduction techniques (e.g., Automated exposure control, adjustment of the mA and/or kV according to patient size, use of iterative reconstruction technique) copyright 2011 [employer]- All Rights Reserved Assessment & Plan - Diagnosis (1) Abdominal wall hematoma Is this a current diagnosis for this admission?: Yes (2) Chest pain Qualifiers: Chest pain type: unspecified Qualified Code(s): R07.9 - Chest pain, unspecified Is this a current diagnosis for this admission?: Yes (3) Elevated troponin Is this a current diagnosis for this admission?: Yes (4) Renal hematoma Is this a current diagnosis for this admission?: Yes - Time Time Spent with patient: 15-24 minutes - Inpatient Certification Medical Necessity: Need Close Monitoring Due to Risk of Patient Decompensation, Need for Pain Control - Plan Summary Plan Summary: Her coag's are normal.Denies trauma. Has an abdominal hematoma and small renal capsular hematoma. She is afebrile and her creatinine remains normal. Will continue to observe today. Explained to her that she may not need an operation to evacuate the abdominal wall hematoma. Will observe her 24 hrs and re-evaluate in am. She was on steroids and her wound healing may not be optimal if she gets an evacuation of the hematoma. Doubt abscess because of being afebrile and WBC has remained normal. Hb is fairly stable at 11.0
--- NOTE | 2018-12-12 12:58 | PDOC CONSULTATION ---
Consultation-Blank Consultation: CARDIOLOGY CONSULTATION by Dr. Cele Santiago on 12/12/2018. Patient seen at 8 AM on 9. 60 minutes spent on this patient more than 50% of time spent in direct patient care. REASON FOR CONSULTATION: Patient with exertional chest pressure. CONSULT REQUESTING PHYSICIAN: , surgicalist. HISTORY OF PRESENT ILLNESS: Patient is a 58-year-old Afro-[place] female with history of hypertension admitted for right lower quadrant pain, and is being evaluated for possible right abdominal wall hematoma versus abscess, and possibly a small abscess near the pancreas versus artifact.. The patient also stated to the surgical list that she has been having since the past 2 weeks exertional chest pressure. The patient is not a very good historian. She has had if she walks about 200 yards she gets pressure in the chest. It is relieved with rest. But at the same time she also states that she has exertional chest pain with soreness in the chest which is reproducible with pressing on the chest. She has a history of hypertension. She also has a history of asthma, and the patient smokes. As per the patient's daughter the patient has no formal diagnosis of sleep apnea, but the patient does snore and does stop breathing in his sleep. She would need a sleep study. The patient denies any palpitations. She complains of dyspnea on exertion. There is no PND orthopnea or leg edema. There is no palpitations or syncope. There is no history of sudden . Past Medical History Cardiac Medical History: Reports: Hypertension Pulmonary Medical History: Reports: Asthma. As per daughter the patient has symptoms suggestive of sleep apnea and with the patient being noticed to stop breathing in his sleep. She has not had a formal study, and she is not on BiPAP. Neurological Medical History: Reports: Migraine. No history of TIA CVA. Musculoskeltal Medical History: Reports: Arthritis Endocrine: No history of diabetes mellitus or thyroid disease. RENAL: No history of chronic kidney disease. Past Surgical History: Reports: Hysterectomy PSYCHIATRIC: No history of anxiety or depression. Social History :Lives with: Family Smoking Status: Current Every Day Smoker Family History Family History: No history of coronary artery disease Medication/Allergy Home Medications: Butalb/Acetaminophen/Caffeine [Fioricet (50-325-40 mg) Tablet] 1 tab PO Q4HP PRN 04/08/14 Diazepam [Valium 5 mg Tablet] 5 mg PO DAILY 04/08/14 Oxycodone HCl 10 mg PO QID 04/08/14 Topiramate [Topamax] 50 mg PO 04/08/14 Ondansetron [Zofran Odt 4 mg Tablet] 1 tab PO Q6H #15 tab.rapdis 07/04/18 Oxycodone HCl/Acetaminophen [Percocet 5-325 mg Tablet] 1 - 2 tab PO Q4H PRN #30 tablet 08/26/18 Promethazine HCl [Phenergan 25 mg Tablet] 1 - 2 tab PO Q6H PRN #20 tablet 08/26/18 Allergies/Adverse Reactions: amoxicillin,ibuprofen ,Penicillins Review of Systems Constitutional: See HPI, Fever EENT: No symptoms reported Cardiovascular: See HPI, Chest pain Respiratory: No symptoms reported Gastrointestinal: See HPI, Abdominal pain, Nausea, Vomiting Genitourinary: No symptoms reported Female Genitourinary: No symptoms reported Musculoskeletal: No symptoms reported Skin: No symptoms reported Hematologic/Lymphatic: No symptoms reported Neurological/Psychological: No symptoms reported -: Yes All other systems reviewed and negative PHYSICAL EXAMINATION: The patient is moderately obese. At present in no acute distress. She states since she is admitted she has no chest pressure, but at th e same time state she has not walked around a lot. Selected Entries 12/12/18 07:56 Temperature 98.5 F Temperature Oral Source Pulse Rate 104 H Respiratory 18 Rate Blood Pressure 110/66 Blood Pressure 80 Mean BP Location Left Arm BP Position Sitting O2 Sat by Pulse 97 Oximetry Oxygen Delivery Room Air Method HEAD: Is atraumatic normocephalic. EYES: Pupils equal round regular reactive to light accommodation. Extraocular movements are normal. There is no conjunctival pallor. There is no scleral icterus. EARS: Tympanic membranes are intact. External auditory canals are clear. nose: There is no deviated nasal septum. There is no inflammation of the nasal mucous membranes. MOUTH: Mucous membranes of mouth are moist tongue is moist there is no ulcers there is no bleeding from the gums. The patient oral cavity modified Anisha Domi classification is class IV. THROAT: There is no redness of the oropharynx. There is no exudates. SKIN: There is no skin lesions or skin rashes. There is no particular ecchymosis. NECK: Is supple. There is no JVD. Carotids equal there is no bruit there is faint murmur from the aortic area transmitted over b oth carotids. There is no carotid delay. There is no lymphadenopathy. There is no goiter. There is no accessory muscle respiration use. Trachea central. LUNGS: Is clear to auscultation percussion. There is no rhonchi rales or wheezing. On no palpation there is some mild tenderness of the sternal area in the front of the chest. HEART: S1-S2 is heard. There is no S3 gallop. There is a questionable S4 gallop present. There is systolic murmur the aortic area with faint radiation to both carotids. There is also murmur of mitral regurgitation. In the left apex with radiation to the left scapular area and also to the left axilla. Also the systolic murmur the left sternal border which increases in intensity with Valsalva. There is no rub. S1 is of normal intensity. ABDOMEN: Is obese. Nontender. There is no paraspinal megaly. There is some degree of discomfort on pressing the right lower quadrant of the abdomen. There is no flank tenderness. Bowel sounds are well heard. EXTREMITIES: Femorals are deep femorals are diminished. Leg pulses slightly diminished. There is no pedal edema. There is no DVT or cellulitis. There is no sinus or clubbing. There is no calf tenderness. CODE OFFICIAL: The patient is conscious awake alert oriented x3 with no focal deficits. PSYCHIATRIC: The patient judgment and insight are intact her affect is normal. The patient EKG sinus shows sinus tachycardia, possible LVH with strain pattern. The patient's echocardiogram is a very suboptimal study. There is possibly presence of asymmetric left ventricular hypertrophy. There is also seems to be LVOT obstruction with a resting gradient of about 19 mmHg. The study is a very poor quality and there is probably mild mitral regurgitation. There is aortic sclerosis without stenosis. Current Medications Generic Name Dose Route Start Last Admin Trade Name Freq PRN Reason Stop Dose Admin Cefepime HCl 1 gm in 50 mls @ 100 mls/hr 12/11/18 10:00 12/12/18 10:38 Maxipime Rtu 1 Gm/D5w 50 Ml Premix Bag IV 12/18/18 09:59 100 mls/hr Q12 MICHAEL 100 mls/hr Administration Lactated Ringer's 1,000 mls @ 125 mls/hr 12/10/18 23:21 12/12/18 10:38 Lactated Ringers 1000 Ml Iv Soln IV 01/09/19 23:20 125 mls/hr CONTINUOUS PRN Administration THIS MED IS NOT "PRN" Vancomycin HCl 1,500 mg/ 250 mls @ 166.667 mls/hr 12/12/18 14:00 Dextrose IV 12/18/18 05:59 Q8 MICHAEL Metoprolol Tartrate 25 mg 12/12/18 10:30 12/12/18 10:40 Lopressor 25 Mg Tablet PO 01/11/19 10:29 25 mg Q12 MICHAEL Administration Morphine Sulfate 4 mg 12/10/18 22:51 12/12/18 10:38 Morphine 10 Mg/Ml Inj IV 12/17/18 22:50 4 mg Q4HP PRN Administration FOR BREAKTHROUGH PAIN Ondansetron HCl 4 mg 12/11/18 08:00 12/12/18 10:38 Zofran Inj/Pf 4 Mg/2 Ml Sdv IV 01/09/19 22:50 4 mg Q4HP PRN Administration FOR NAUSEA/VOMITING Discontinued Medications Generic Name Dose Route Start Last Admin Trade Name Freq PRN Reason Stop Dose Admin Sodium Chloride 1,000 mls @ 0 mls/hr 12/10/18 17:22 12/10/18 18:40 Nacl 0.9% 1000 Ml Iv Soln IV 12/10/18 17:23 Infused BOLUS ONE Infusion Wide Open Sodium Chloride 1,000 mls @ 0 mls/hr 12/10/18 20:08 12/11/18 00:54 Nacl 0.9% 1000 Ml Iv Soln IV Infused X 2 BAGS PRN Infusion THIS MED IS NOT "PRN" Wide Open Cefepime HCl 2 gm in 50 mls @ 100 mls/hr 12/10/18 22:22 12/11/18 00:55 Maxipime Rtu 2 Gm-D5w 50 Ml Premix Bag IV 12/10/18 22:51 Infused NOW ONE Infusion Sodium Chloride 1,000 mls @ 0 mls/hr 12/10/18 23:30 12/11/18 11:24 Nacl 0.9% 1000 Ml Iv Soln IV 12/10/18 23:31 Infused BOLUS ONE Infusion Wide Open Vancomycin HCl 1,250 mg/ 250 mls @ 166.667 mls/hr 12/11/18 04:00 12/11/18 11:24 Dextrose IV 12/11/18 05:29 Infused NOW ONE Infusion Vancomycin HCl 1,250 mg/ 250 mls @ 166.667 mls/hr 12/11/18 14:00 12/12/18 05:59 Dextrose IV 12/18/18 13:59 166.6 mls/hr Q8 MICHAEL 166.6 mls/hr Administration Metoclopramide HCl 10 mg 12/10/18 17:55 12/10/18 18:03 Reglan Inj/Pf 10 Mg/2 Ml Sdv IV 12/10/18 17:56 10 mg NOW ONE Administration Metoclopramide HCl 10 mg 12/10/18 22:27 12/10/18 23:01 Reglan Inj/Pf 10 Mg/2 Ml Sdv IV 12/10/18 22:28 10 mg NOW ONE Administration Ondansetron HCl 4 mg 12/10/18 17:22 12/10/18 17:35 Zofran Inj/Pf 4 Mg/2 Ml Sdv IV 12/10/18 17:23 4 mg NOW ONE Administration Ondansetron HCl 4 mg 12/10/18 22:51 12/11/18 04:08 Zofran Inj/Pf 4 Mg/2 Ml Sdv IV 01/09/19 22:50 4 mg Q4HP PRN Administration FOR NAUSEA/VOMITING Pantoprazole Sodium 40 mg 12/10/18 22:59 12/10/18 23:57 Protonix Iv Inj 40 Mg Vial IV 12/10/18 23:00 40 mg NOW ONE Administration Promethazine HCl 12.5 mg 12/11/18 19:30 12/11/18 19:31 Phenergan Inj 25 Mg/1 Ml Vial IV 12/11/18 19:31 12.5 mg NOW ONE Administration Vancomycin HCl 1,250 mg 12/11/18 01:21 Vancocin Inj 1000 Mg Vial IV 12/11/18 07:00 ASDIR PRN Vancomycin HCl Confirm 12/11/18 22:50 12/11/18 22:57 Vancocin Inj 1000 Mg Vial Administered 12/11/18 22:51 1,000 mg Dose Administration 1,000 mg .ROUTE .STK-MED ONE Vancomycin HCl Confirm 12/11/18 22:50 Vancocin Inj 500 Mg Vial Administered 12/11/18 22:51 Dose 500 mg .ROUTE .STK-MED ONE Labs- Entire Visit 12/10/18 12/10/18 12/10/18 11:39 17:32 17:32 WBC 6.6 RBC 4.85 Hgb 14.6 Hct 43.0 MCV 89 MCH 30.1 MCHC 34.0 RDW 14.0 Plt Count 326 Total Counted Seg Neutrophils % 67.6 Seg Neuts % (Manual) Lymphocytes % 17.9 Lymphocytes % (Manual) Monocytes % 12.0 Monocytes % (Manual) Eosinophils % 1.6 Eosinophils % (Manual) Basophils % 0.9 Basophils % (Manual) Absolute Neutrophils 4.5 Abs Neuts (Manual) Absolute Lymphocytes 1.2 Abs Lymphs (Manual) Absolute Monocytes 0.8 Abs Monocytes (Manual) Absolute Eosinophils 0.1 Absolute Eos (Manual) Absolute Basophils 0.1 Abs Basophils (Manual) Nucleated RBCs Clumped Platelets Platelet Comment RBC Morph Comment ESR PT INR APTT Sodium 138.2 Potassium 4.2 Chloride 104 Carbon Dioxide 25 Anion Gap 9 BUN 8 Creatinine 0.44 L Est GFR ( Amer) > 60 Est GFR (Non-Af Amer) > 60 Glucose 103 Lactic Acid Calcium 9.6 Total Bilirubin 0.6 Direct Bilirubin 0.4 Neonat Total Bilirubin Not Reportable Neonat Direct Bilirubin Not Reportable Neonat Indirect Bili Not Reportable AST 26 ALT 11 Alkaline Phosphatase 57 Troponin I C-Reactive Protein Total Protein 7.3 Albumin 4.2 Amylase Lipase 228.9 Urine Color Urine Appearance Urine pH Ur Specific [place] Urine Protein Urine Glucose (UA) Urine Ketones Urine Blood Urine Nitrite Urine Bilirubin Urine Urobilinogen Ur Leukocyte Esterase Urine WBC (Auto) Urine RBC (Auto) Squamous Epi Cells Auto Urine Mucus (Auto) Urine Ascorbic Acid Time Trough Drawn Vancomycin Trough Urine Opiates Screen NEGATIVE Urine Methadone Screen NEGATIVE Ur Barbiturates Screen UNCONFIRMED POSITIVE Ur Phencyclidine Scrn NEGATIVE Ur Amphetamines Screen NEGATIVE U Benzodiazepines Scrn NEGATIVE Urine Cocaine Screen NEGATIVE U Marijuana (THC) Screen NEGATIVE 12/10/18 12/10/18 12/10/18 17:32 20:30 20:30 WBC RBC Hgb Hct MCV MCH MCHC RDW Plt Count Total Counted Seg Neutrophils % Seg Neuts % (Manual) Lymphocytes % Lymphocytes % (Manual) Monocytes % Monocytes % (Manual) Eosinophils % Eosinophils % (Manual) Basophils % Basophils % (Manual) Absolute Neutrophils Abs Neuts (Manual) Absolute Lymphocytes Abs Lymphs (Manual) Absolute Monocytes Abs Monocytes (Manual) Absolute Eosinophils Absolute Eos (Manual) Absolute Basophils Abs Basophils (Manual) Nucleated RBCs Clumped Platelets Platelet Comment RBC Morph Comment ESR PT INR APTT Sodium Potassium Chloride Carbon Dioxide Anion Gap BUN Creatinine Est GFR ( Amer) Est GFR (Non-Af Amer) Glucose Lactic Acid 1.5 Calcium Total Bilirubin Direct Bilirubin Neonat Total Bilirubin Neonat Direct Bilirubin Neonat Indirect Bili AST ALT Alkaline Phosphatase Troponin I 0.065 0.064 C-Reactive Protein Total Protein Albumin Amylase Lipase Urine Color Urine Appearance Urine pH Ur Specific [place] Urine Protein Urine Glucose (UA) Urine Ketones Urine Blood Urine Nitrite Urine Bilirubin Urine Urobilinogen Ur Leukocyte Esterase Urine WBC (Auto) Urine RBC (Auto) Squamous Epi Cells Auto Urine Mucus (Auto) Urine Ascorbic Acid Time Trough Drawn Vancomycin Trough Urine Opiates Screen Urine Methadone Screen Ur Barbiturates Screen Ur Phencyclidine Scrn Ur Amphetamines Screen U Benzodiazepines Scrn Urine Cocaine Screen U Marijuana (THC) Screen 12/10/18 12/10/18 12/11/18 22:45 23:14 04:39 WBC 5.0 RBC 3.97 Hgb 12.0 D Hct 35.0 L MCV 88 MCH 30.1 MCHC 34.1 RDW 13.7 Plt Count 256 Total Counted Seg Neutrophils % 71.3 Seg Neuts % (Manual) Lymphocytes % 17.3 Lymphocytes % (Manual) Monocytes % 10.1 Monocytes % (Manual) Eosinophils % 1.1 Eosinophils % (Manual) Basophils % 0.2 Basophils % (Manual) Absolute Neutrophils 3.6 Abs Neuts (Manual) Absolute Lymphocytes 0.9 Abs Lymphs (Manual) Absolute Monocytes 0.5 Abs Monocytes (Manual) Absolute Eosinophils 0.1 Absolute Eos (Manual) Absolute Basophils 0.0 Abs Basophils (Manual) Nucleated RBCs Clumped Platelets Platelet Comment RBC Morph Comment ESR PT INR APTT Sodium Potassium Chloride Carbon Dioxide Anion Gap BUN Creatinine Est GFR ( Amer) Est GFR (Non-Af Amer) Glucose Lactic Acid Calcium Total Bilirubin Direct Bilirubin Neonat Total Bilirubin Neonat Direct Bilirubin Neonat Indirect Bili AST ALT Alkaline Phosphatase Troponin I 0.067 C-Reactive Protein Total Protein Albumin Amylase Lipase Urine Color YELLOW Urine Appearance CLEAR Urine pH 6.0 Ur Specific [place] > 1.060 Urine Protein NEGATIVE Urine Glucose (UA) NEGATIVE Urine Ketones 80 H Urine Blood SMALL H Urine Nitrite NEGATIVE Urine Bilirubin NEGATIVE Urine Urobilinogen NEGATIVE Ur Leukocyte Esterase NEGATIVE Urine WBC (Auto) 3 Urine RBC (Auto) 4 Squamous Epi Cells Auto 3 Urine Mucus (Auto) RARE Urine Ascorbic Acid NEGATIVE Time Trough Drawn Vancomycin Trough Urine Opiates Screen Urine Methadone Screen Ur Barbiturates Screen Ur Phencyclidine Scrn Ur Amphetamines Screen U Benzodiazepines Scrn Urine Cocaine Screen U Marijuana (THC) Screen 12/11/18 12/11/18 12/11/18 04:39 04:39 10:30 WBC RBC Hgb Hct MCV MCH MCHC RDW Plt Count Total Counted Seg Neutrophils % Seg Neuts % (Manual) Lymphocytes % Lymphocytes % (Manual) Monocytes % Monocytes % (Manual) Eosinophils % Eosinophils % (Manual) Basophils % Basophils % (Manual) Absolute Neutrophils Abs Neuts (Manual) Absolute Lymphocytes Abs Lymphs (Manual) Absolute Monocytes Abs Monocytes (Manual) Absolute Eosinophils Absolute Eos (Manual) Absolute Basophils Abs Basophils (Manual) Nucleated RBCs Clumped Platelets Platelet Comment RBC Morph Comment ESR PT INR APTT Sodium 138.7 Potassium 3.7 Chloride 109 H Carbon Dioxide 24 Anion Gap 6 BUN 7 Creatinine 0.41 L Est GFR ( Amer) > 60 Est GFR (Non-Af Amer) > 60 Glucose 106 Lactic Acid Calcium 8.4 Total Bilirubin 0.4 Direct Bilirubin 0.3 Neonat Total Bilirubin Not Reportable Neonat Direct Bilirubin Not Reportable Neonat Indirect Bili Not Reportable AST 18 ALT 9 Alkaline Phosphatase 44 Troponin I 0.066 0.053 C-Reactive Protein Total Protein 5.5 L Albumin 3.0 L Amylase 48 Lipase 246.7 Urine Color Urine Appearance Urine pH Ur Specific [place] Urine Protein Urine Glucose (UA) Urine Ketones Urine Blood Urine Nitrite Urine Bilirubin Urine Urobilinogen Ur Leukocyte Esterase Urine WBC (Auto) Urine RBC (Auto) Squamous Epi Cells Auto Urine Mucus (Auto) Urine Ascorbic Acid Time Trough Drawn Vancomycin Trough Urine Opiates Screen Urine Methadone Screen Ur Barbiturates Screen Ur Phencyclidine Scrn Ur Amphetamines Screen U Benzodiazepines Scrn Urine Cocaine Screen U Marijuana (THC) Screen 12/11/18 12/11/18 12/11/18 10:30 10:30 11:14 WBC RBC Hgb Hct MCV MCH MCHC RDW Plt Count Total Counted Seg Neutrophils % Seg Neuts % (Manual) Lymphocytes % Lymphocytes % (Manual) Monocytes % Monocytes % (Manual) Eosinophils % Eosinophils % (Manual) Basophils % Basophils % (Manual) Absolute Neutrophils Abs Neuts (Manual) Absolute Lymphocytes Abs Lymphs (Manual) Absolute Monocytes Abs Monocytes (Manual) Absolute Eosinophils Absolute Eos (Manual) Absolute Basophils Abs Basophils (Manual) Nucleated RBCs Clumped Platelets Platelet Comment RBC Morph Comment ESR 16 PT 14.8 INR 1.15 APTT 28.5 Sodium Potassium Chloride Carbon Dioxide Anion Gap BUN Creatinine Est GFR ( Amer) Est GFR (Non-Af Amer) Glucose Lactic Acid Calcium Total Bilirubin Direct Bilirubin Neonat Total Bilirubin Neonat Direct Bilirubin Neonat Indirect Bili AST ALT Alkaline Phosphatase Troponin I C-Reactive Protein 43.5 H Total Protein Albumin Amylase Lipase Urine Color Urine Appearance Urine pH Ur Specific [place] Urine Protein Urine Glucose (UA) Urine Ketones Urine Blood Urine Nitrite Urine Bilirubin Urine Urobilinogen Ur Leukocyte Esterase Urine WBC (Auto) Urine RBC (Auto) Squamous Epi Cells Auto Urine Mucus (Auto) Urine Ascorbic Acid Time Trough Drawn Vancomycin Trough Urine Opiates Screen Urine Methadone Screen Ur Barbiturates Screen Ur Phencyclidine Scrn Ur Amphetamines Screen U Benzodiazepines Scrn Urine Cocaine Screen U Marijuana (THC) Screen 12/12/18 12/12/18 12/12/18 04:58 04:58 04:58 WBC 4.9 RBC 3.72 Hgb 11.0 L Hct 32.8 L MCV 88 MCH 29.7 MCHC 33.6 RDW 13.7 Plt Count 244 Total Counted 100 Seg Neutrophils % Not Reportable Seg Neuts % (Manual) 72 Lymphocytes % Not Reportable Lymphocytes % (Manual) 17 Monocytes % Not Reportable Monocytes % (Manual) 9 Eosinophils % Not Reportable Eosinophils % (Manual) 2 Basophils % Not Reportable Basophils % (Manual) 0 Absolute Neutrophils Not Reportable Abs Neuts (Manual) 3.5 Absolute Lymphocytes Not Reportable Abs Lymphs (Manual) 0.8 Absolute Monocytes Not Reportable Abs Monocytes (Manual) 0.4 Absolute Eosinophils Not Reportable Absolute Eos (Manual) 0.1 Absolute Basophils Not Reportable Abs Basophils (Manual) 0.0 Nucleated RBCs 1 Clumped Platelets PRESENT Platelet Comment ADEQUATE RBC Morph Comment NORMO-CYTIC/CHROMIC ESR PT INR APTT Sodium Potassium Chloride Carbon Dioxide Anion Gap BUN Creatinine 0.38 L Est GFR ( Amer) > 60 Est GFR (Non-Af Amer) > 60 Glucose Lactic Acid Calcium Total Bilirubin Direct Bilirubin Neonat Total Bilirubin Neonat Direct Bilirubin Neonat Indirect Bili AST ALT Alkaline Phosphatase Troponin I C-Reactive Protein Total Protein Albumin Amylase Lipase Urine Color Urine Appearance Urine pH Ur Specific [place] Urine Protein Urine Glucose (UA) Urine Ketones Urine Blood Urine Nitrite Urine Bilirubin Urine Urobilinogen Ur Leukocyte Esterase Urine WBC (Auto) Urine RBC (Auto) Squamous Epi Cells Auto Urine Mucus (Auto) Urine Ascorbic Acid Time Trough Drawn 0458 Vancomycin Trough 9.6 Urine Opiates Screen Urine Methadone Screen Ur Barbiturates Screen Ur Phencyclidine Scrn Ur Amphetamines Screen U Benzodiazepines Scrn Urine Cocaine Screen U Marijuana (THC) Screen Chest X-Ray 12/10/18 17:22 IMPRESSION: 1. 10 mm right pulmonary nodule. Consider CT for further evaluation. 2. Cardiomegaly without pulmonary edema. Abdomen/Pelvis CT 12/10/18 20:16 IMPRESSION: 1. Perinephric high density as detailed above suggestive of subcapsular hematoma of uncertain etiology. There is associated diffuse perinephric stranding with trace high density contents along the course of the renal capsule and minimally along the RIGHT paracolic gutter compatible with trace retroperitoneal hemorrhage. 2. Large volume of RIGHT anterior lateral subcutaneous fat diffuse stranding and more focal high density measuring up to 4.7 x 2.0 cm in thickness with high density components compatible with hematoma. 3. Diagnostic pulmonary angiography without findings to suggest pulmonary arterial embolus. 4. The lungs are clear without focal opacity, pleural effusion or pneumothorax. 5. Bilateral apical centrilobular lucency, a nonspecific finding however raising the possibility of early or mild developing emphysema. 6. Enlargement of the main pulmonary artery measuring up to 3.5 cm concerning for pulmonary arterial hypertension. 7. Indeterminate 12 mm LEFT renal cyst. 8. Focal area of nonspecific increased density within the proximal pancreas, may be within normal limits for the patient. However the possibility of small hematoma, considered less likely, cannot be completely excluded. This may be further evaluated on follow-up imaging. There is no associated peripancreatic stranding. Critical findings were discussed with the patient's nurse Jael 12/10/2018 2046 hours. TECHNICAL DOCUMENTATION: Quality ID # [id number]: Final reports with documentation of one or more dose reduction techniques (e.g., Automated exposure control, adjustment of the mA and/or kV according to patient size, use of iterative reconstruction technique) copyright 2011 [employer]- All Rights Reserved Chest/Abdomen CTA 12/10/18 20:38 IMPRESSION: 1. Perinephric high density as detailed above suggestive of subcapsular hematoma of uncertain etiology. There is associated diffuse perinephric stranding with trace high density contents along the course of the renal capsule and minimally along the RIGHT paracolic gutter compatible with trace retroperitoneal hemorrhage. 2. Large volume of RIGHT anterior lateral subcutaneous fat diffuse stranding and more focal high density measuring up to 4.7 x 2.0 cm in thickness with high density components compatible with hematoma. 3. Diagnostic pulmonary angiography without findings to suggest pulmonary arterial embolus. 4. The lungs are clear without focal opacity, pleural effusion or pneumothorax. 5. Bilateral apical centrilobular lucency, a nonspecific finding however raising the possibility of early or mild developing emphysema. 6. Enlargement of the main pulmonary artery measuring up to 3.5 cm concerning for pulmonary arterial hypertension. 7. Indeterminate 12 mm LEFT renal cyst. 8. Focal area of nonspecific increased density within the proximal pancreas, may be within normal limits for the patient. However the possibility of small hematoma, considered less likely, cannot be completely excluded. This may be further evaluated on follow-up imaging. There is no associated peripancreatic stranding. Critical findings were discussed with the patient's nurse Jael 12/10/2018 2046 hours. TECHNICAL DOCUMENTATION: Quality ID # [id number]: Final reports with documentation of one or more dose reduction techniques (e.g., Automated exposure control, adjustment of the mA and/or kV according to patient size, use of iterative reconstruction technique) The left ventricle is normal in size. There is moderate asymmetric left ventricular hypertrophy. 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 The left ventricular ejection fraction is within normal limits. LV EF is > than 70% Doppler measurements suggest pseudonormalized left ventricular relaxation, which is associated with grade II/IV or mild to moderate diastolic dysfunction The left ventricular wall motion is normal. There is no thrombus. The study is not agood study to assess for ASD,VD,or PFO. The right ventricle is grossly normal size. The right ventricle is not well visualized secondary to technical limitations The right atrium is normal. The LA is mild to moderately dilated. There is mild mitral annular calcification. There is systolic anterior motion of the mitral valve. There is no aortic valvular vegetation. 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 No aortic regurgitation is present. The tricuspid valve is not well visualized secondary to technical limitations There is no tricuspid stenosis. robably trace TR.Unable to calculate RVSP due to insufficient TR jet. There is no pulmonic valvular stenosis. There is a trace amount of pulmonic regurgitation The aortic root is normal size. The inferior vena cava appeared normal and decreased > 50% with respiration (RAP 5-10 mmHg) There is no pericardial effusion. IMPRESSION/RECOMMENDATION 1. Exertional chest pressure: Most likely secondary to the patient's IHSS with the possibility of dynamic obstruction with exertion. Note that the patient is on hydrochlorothiazide. Would recommend discontinuing this. We will start the patient on a beta-syl and increase as tolerated. Later would recommend the patient have a IV Lexiscan Cardiolite stress test. Would recommend monitoring the patient's heart rhythm on telemetry. 2. Hypertension: Blood pressure well controlled. 3. History of asthma/history of tobacco abuse. Tobacco cessation counseling given. At present there is no acute exacerbation of asthma or acute asthmatic attack. 4. History of right abdominal wall hematoma versus abscess versus another hematoma intra-abdominal.: Await surgical decision on management of this. 5. History of migraines. 6. History of tobacco abuse: Tobacco cessation counseling given. 7. Symptoms suggestive of sleep apnea. Will recommend empiric BiPAP therapy in the hospital. Patient recommended to have a sleep study as an outpatient. Medications reviewed. Medications added. Management plan discussed with the hospitalist and the surgical history. Medical decision making is of high complexity. The findings of echocardiogram have been discussed with the patient and the patient's daughter. Medical decision making is of high complexity. 60 minutes spent on this patient with more than 50% of time spent under patient care. Will follow.
[2018-12-12] MEDS: VANCOMYCIN HCL 1,500 MG in DEXTROSE 5%-WATER 250 ML IV SCH ×2 (14:28→21:26)
--- NOTE | 2018-12-12 16:05 | XCELERA REPORT ---
[address] [facility] [address] Lower Extremity Venous Evaluation Procedure: Color flow and duplex imaging of the veins of the left lower extremity as well as the right Common Femoral vein. Right Sided Venous Evaluation The right common femoral vein is fully compressible. Spontaneous and phasic flow is present in the right common femoral vein. Left Sided Venous Evaluation Normal vessel filling wall to wall, compression and augmentation as well as Colour flow down to the infrageniculate veins. Interpretation Summary No duplex evidence of DVT or obstruction in the left lower extremity nor in the right Common Femoral vein. Name: SUSANA MART Age: 58 yrs Gender: Female : 1960 Patient Status: Inpatient Patient Location: [address] [place], [place] [address] Study Date: 12/10/2018 06:44 PM Reason For Study: LEFT LOWER EXT SWELLING Ordering Physician: DEVIKA MORIN Performed By: Selina Tellez : DEVIKA MORIN > Raj Byrd
--- NOTE | 2018-12-12 17:07 | PDOC PROGRESS REPORT ---
Subjective Progress Note for:: 12/11/18 Subjective:: This is a 58 year old female admitted by the surgical service for renal hematoma versus abscess. She was complaining at one point about some central nonradiating chest pain has been going on for 5 days. She had equivocal troponin level at .06 hence hospitalist and cardiology services were consulted. No acute event overnight. She denies any abdominal pain, chest pain or shortness of breath at the moment. Reason For Visit: RLQ ABSCESS Physical Exam Vital Signs: Temp Pulse Resp BP Pulse Ox 99.4 F 102 H 17 112/63 97 12/11/18 14:42 12/11/18 14:42 12/11/18 14:42 12/11/18 14:42 12/11/18 14:42 Intake & Output 12/10/18 12/11/18 12/12/18 06:59 06:59 06:59 Intake Total 3882 1186 Balance 3882 1186 Weight 209 lb 14.081 oz General appearance: PRESENT: no acute distress, obese Head exam: PRESENT: atraumatic, normocephalic Eye exam: PRESENT: conjunctiva pink, EOMI, PERRLA. ABSENT: scleral icterus Ear exam: PRESENT: normal external ear exam Mouth exam: PRESENT: moist, tongue midline Neck exam: ABSENT: carotid bruit, JVD, lymphadenopathy, thyromegaly Respiratory exam: PRESENT: clear to auscultation jared. ABSENT: rales, rhonchi, wheezes Cardiovascular exam: PRESENT: RRR. ABSENT: diastolic murmur, rubs, systolic murmur Pulses: PRESENT: normal dorsalis pedis pul GI/Abdominal exam: PRESENT: normal bowel sounds, soft. ABSENT: distended, guarding, mass, organolmegaly, rebound, tenderness Rectal exam: PRESENT: deferred Neurological exam: PRESENT: alert, awake, oriented to person, oriented to place, oriented to time, oriented to situation, CN II-XII grossly intact. ABSENT: motor sensory deficit Results Laboratory Results: 12/11/18 04:39 12/11/18 04:39 12/10/18 12/10/18 12/11/18 20:30 22:45 04:39 WBC 5.0 RBC 3.97 Hgb 12.0 D Hct 35.0 L MCV 88 MCH 30.1 MCHC 34.1 RDW 13.7 Plt Count 256 Seg Neutrophils % 71.3 Lymphocytes % 17.3 Monocytes % 10.1 Eosinophils % 1.1 Basophils % 0.2 Absolute Neutrophils 3.6 Absolute Lymphocytes 0.9 Absolute Monocytes 0.5 Absolute Eosinophils 0.1 Absolute Basophils 0.0 Sodium Potassium Chloride Carbon Dioxide Anion Gap BUN Creatinine Est GFR ( Amer) Est GFR (Non-Af Amer) Glucose Lactic Acid 1.5 Calcium Total Bilirubin AST Alkaline Phosphatase C-Reactive Protein Total Protein Albumin Amylase Lipase Urine Color YELLOW Urine Appearance CLEAR Urine pH 6.0 Ur Specific [place] > 1.060 Urine Protein NEGATIVE Urine Glucose (UA) NEGATIVE Urine Ketones 80 H Urine Blood SMALL H Urine Nitrite NEGATIVE Ur Leukocyte Esterase NEGATIVE Urine WBC (Auto) 3 Urine RBC (Auto) 4 12/11/18 12/11/18 04:39 10:30 WBC RBC Hgb Hct MCV MCH MCHC RDW Plt Count Seg Neutrophils % Lymphocytes % Monocytes % Eosinophils % Basophils % Absolute Neutrophils Absolute Lymphocytes Absolute Monocytes Absolute Eosinophils Absolute Basophils Sodium 138.7 Potassium 3.7 Chloride 109 H Carbon Dioxide 24 Anion Gap 6 BUN 7 Creatinine 0.41 L Est GFR ( Amer) > 60 Est GFR (Non-Af Amer) > 60 Glucose 106 Lactic Acid Calcium 8.4 Total Bilirubin 0.4 AST 18 Alkaline Phosphatase 44 C-Reactive Protein 43.5 H Total Protein 5.5 L Albumin 3.0 L Amylase 48 Lipase 246.7 Urine Color Urine Appearance Urine pH Ur Specific [place] Urine Protein Urine Glucose (UA) Urine Ketones Urine Blood Urine Nitrite Ur Leukocyte Esterase Urine WBC (Auto) Urine RBC (Auto) 12/10/18 12/10/18 12/10/18 17:32 20:30 23:14 Troponin I 0.065 0.064 0.067 12/11/18 12/11/18 04:39 10:30 Troponin I 0.066 0.053 Impressions: Chest X-Ray 12/10/18 17:22 IMPRESSION: 1. 10 mm right pulmonary nodule. Consider CT for further evaluation. 2. Cardiomegaly without pulmonary edema. Abdomen/Pelvis CT 12/10/18 20:16 IMPRESSION: 1. Perinephric high density as detailed above suggestive of subcapsular hematoma of uncertain etiology. There is associated diffuse perinephric stranding with trace high density contents along the course of the renal capsule and minimally along the RIGHT paracolic gutter compatible with trace retroperitoneal hemorrhage. 2. Large volume of RIGHT anterior lateral subcutaneous fat diffuse stranding and more focal high density measuring up to 4.7 x 2.0 cm in thickness with high density components compatible with hematoma. 3. Diagnostic pulmonary angiography without findings to suggest pulmonary arterial embolus. 4. The lungs are clear without focal opacity, pleural effusion or pneumothorax. 5. Bilateral apical centrilobular lucency, a nonspecific finding however raising the possibility of early or mild developing emphysema. 6. Enlargement of the main pulmonary artery measuring up to 3.5 cm concerning for pulmonary arterial hypertension. 7. Indeterminate 12 mm LEFT renal cyst. 8. Focal area of nonspecific increased density within the proximal pancreas, may be within normal limits for the patient. However the possibility of small hematoma, considered less likely, cannot be completely excluded. This may be further evaluated on follow-up imaging. There is no associated peripancreatic stranding. Critical findings were discussed with the patient's nurse Jael 12/10/2018 2046 hours. TECHNICAL DOCUMENTATION: Quality ID # 436: Final reports with documentation of one or more dose reduction techniques (e.g., Automated exposure control, adjustment of the mA and/or kV according to patient size, use of iterative reconstruction technique) copyright 2011 [email or web address]- All Rights Reserved Chest/Abdomen CTA 12/10/18 20:38 IMPRESSION: 1. Perinephric high density as detailed above suggestive of subcapsular hematoma of uncertain etiology. There is associated diffuse perinephric stranding with trace high density contents along the course of the renal capsule and minimally along the RIGHT paracolic gutter compatible with trace retroperitoneal hemorrhage. 2. Large volume of RIGHT anterior lateral subcutaneous fat diffuse stranding and more focal high density measuring up to 4.7 x 2.0 cm in thickness with high density components compatible with hematoma. 3. Diagnostic pulmonary angiography without findings to suggest pulmonary arterial embolus. 4. The lungs are clear without focal opacity, pleural effusion or pneumothorax. 5. Bilateral apical centrilobular lucency, a nonspecific finding however raising the possibility of early or mild developing emphysema. 6. Enlargement of the main pulmonary artery measuring up to 3.5 cm concerning for pulmonary arterial hypertension. 7. Indeterminate 12 mm LEFT renal cyst. 8. Focal area of nonspecific increased density within the proximal pancreas, may be within normal limits for the patient. However the possibility of small hematoma, considered less likely, cannot be completely excluded. This may be further evaluated on follow-up imaging. There is no associated peripancreatic stranding. Critical findings were discussed with the patient's nurse Jael 12/10/2018 2046 hours. TECHNICAL DOCUMENTATION: Quality ID # 436: Final reports with documentation of one or more dose reduction techniques (e.g., Automated exposure control, adjustment of the mA and/or kV according to patient size, use of iterative reconstruction technique) copyright 2011 [email or web address]- All Rights Reserved Assessment and Plan - Diagnosis (1) Abdominal wall hematoma Is this a current diagnosis for this admission?: Yes Plan: Surgery following. (2) Renal hematoma Is this a current diagnosis for this admission?: Yes (3) Elevated troponin Is this a current diagnosis for this admission?: Yes Plan: EKG does not show any acute changes. Patient is currently chest pain-free. Troponins have been flat at 0.06. Cardiology has been consulted by surgery for possible stress testing. - Time Time Spent with patient: 15-24 minutes
--- NOTE | 2018-12-12 17:11 | PDOC PROGRESS REPORT ---
Subjective Progress Note for:: 12/12/18 Subjective:: This is a 58 year old female admitted by the surgical service for renal hematoma versus abscess. She was complaining at one point about some central nonradiating chest pain has been going on for 5 days. She had equivocal troponin level at .06 hence hospitalist and cardiology services were consulted. 12/11: She denies any abdominal pain, chest pain or shortness of breath at the moment. 12/12: No acute event overnight. Denies chest pain or shortness of breath. She complains of mild abdominal pain and is asking if the hematoma could be taken out and evacuated. Discussed this is usually managed conservatively but will have the surgeon readdress her concerns. Reason For Visit: ABD WALL HEMATOMA,RIGHT KIDNEY CAPSULAR HEMATOMA Physical Exam Vital Signs: Temp Pulse Resp BP Pulse Ox 98.8 F 84 18 117/60 96 12/12/18 11:43 12/12/18 14:00 12/12/18 11:43 12/12/18 11:43 12/12/18 11:43 Intake & Output 12/11/18 12/12/18 12/13/18 06:59 06:59 06:59 Intake Total 3882 3290 550 Output Total 150 Balance 3882 3140 550 Weight 209 lb 14.081 oz 210 lb 8.663 oz General appearance: PRESENT: no acute distress, well-developed, well-nourished Head exam: PRESENT: atraumatic, normocephalic Eye exam: PRESENT: conjunctiva pink, EOMI, PERRLA. ABSENT: scleral icterus Ear exam: PRESENT: normal external ear exam Mouth exam: PRESENT: moist, tongue midline Neck exam: ABSENT: carotid bruit, JVD, lymphadenopathy, thyromegaly Respiratory exam: PRESENT: clear to auscultation jared. ABSENT: rales, rhonchi, wheezes Cardiovascular exam: PRESENT: RRR. ABSENT: diastolic murmur, rubs, systolic murmur Pulses: PRESENT: normal dorsalis pedis pul GI/Abdominal exam: PRESENT: normal bowel sounds, soft. ABSENT: distended, guarding, mass, organolmegaly, rebound, tenderness Rectal exam: PRESENT: deferred Extremities exam: PRESENT: full ROM. ABSENT: calf tenderness, clubbing, pedal edema Neurological exam: PRESENT: alert, awake, oriented to person, oriented to place, oriented to time, oriented to situation, CN II-XII grossly intact. ABSENT: motor sensory deficit Results Laboratory Results: 12/12/18 04:58 12/12/18 04:58 12/12/18 12/12/18 04:58 04:58 WBC 4.9 RBC 3.72 Hgb 11.0 L Hct 32.8 L MCV 88 MCH 29.7 MCHC 33.6 RDW 13.7 Plt Count 244 Seg Neutrophils % Not Reportable Lymphocytes % Not Reportable Monocytes % Not Reportable Eosinophils % Not Reportable Basophils % Not Reportable Absolute Neutrophils Not Reportable Absolute Lymphocytes Not Reportable Absolute Monocytes Not Reportable Absolute Eosinophils Not Reportable Absolute Basophils Not Reportable Creatinine 0.38 L Est GFR ( Amer) > 60 Est GFR (Non-Af Amer) > 60 12/10/18 22:45 Clean Catch Midstream Urine Culture - Final Mixed Urogenital Mary Jane 12/10/18 12/10/18 12/10/18 17:32 20:30 23:14 Troponin I 0.065 0.064 0.067 12/11/18 12/11/18 04:39 10:30 Troponin I 0.066 0.053 Impressions: Chest X-Ray 12/10/18 17:22 IMPRESSION: 1. 10 mm right pulmonary nodule. Consider CT for further evaluation. 2. Cardiomegaly without pulmonary edema. Abdomen/Pelvis CT 12/10/18 20:16 IMPRESSION: 1. Perinephric high density as detailed above suggestive of subcapsular hematoma of uncertain etiology. There is associated diffuse perinephric stranding with trace high density contents along the course of the renal capsule and minimally along the RIGHT paracolic gutter compatible with trace retroperitoneal hemorrhage. 2. Large volume of RIGHT anterior lateral subcutaneous fat diffuse stranding and more focal high density measuring up to 4.7 x 2.0 cm in thickness with high density components compatible with hematoma. 3. Diagnostic pulmonary angiography without findings to suggest pulmonary arterial embolus. 4. The lungs are clear without focal opacity, pleural effusion or pneumothorax. 5. Bilateral apical centrilobular lucency, a nonspecific finding however raising the possibility of early or mild developing emphysema. 6. Enlargement of the main pulmonary artery measuring up to 3.5 cm concerning for pulmonary arterial hypertension. 7. Indeterminate 12 mm LEFT renal cyst. 8. Focal area of nonspecific increased density within the proximal pancreas, may be within normal limits for the patient. However the possibility of small hematoma, considered less likely, cannot be completely excluded. This may be further evaluated on follow-up imaging. There is no associated peripancreatic stranding. Critical findings were discussed with the patient's nurse Jael 12/10/2018 2046 hours. TECHNICAL DOCUMENTATION: Quality ID # 436: Final reports with documentation of one or more dose reduction techniques (e.g., Automated exposure control, adjustment of the mA and/or kV according to patient size, use of iterative reconstruction technique) copyright 2010 [employer]- All Rights Reserved Chest/Abdomen CTA 12/10/18 20:38 IMPRESSION: 1. Perinephric high density as detailed above suggestive of subcapsular hematoma of uncertain etiology. There is associated diffuse perinephric stranding with trace high density contents along the course of the renal capsule and minimally along the RIGHT paracolic gutter compatible with trace retroperitoneal hemorrhage. 2. Large volume of RIGHT anterior lateral subcutaneous fat diffuse stranding and more focal high density measuring up to 4.7 x 2.0 cm in thickness with high density components compatible with hematoma. 3. Diagnostic pulmonary angiography without findings to suggest pulmonary arterial embolus. 4. The lungs are clear without focal opacity, pleural effusion or pneumothorax. 5. Bilateral apical centrilobular lucency, a nonspecific finding however raising the possibility of early or mild developing emphysema. 6. Enlargement of the main pulmonary artery measuring up to 3.5 cm concerning for pulmonary arterial hypertension. 7. Indeterminate 12 mm LEFT renal cyst. 8. Focal area of nonspecific increased density within the proximal pancreas, may be within normal limits for the patient. However the possibility of small hematoma, considered less likely, cannot be completely excluded. This may be further evaluated on follow-up imaging. There is no associated peripancreatic stranding. Critical findings were discussed with the patient's nurse Jael 12/10/2018 2046 hours. TECHNICAL DOCUMENTATION: Quality ID # [id number]: Final reports with documentation of one or more dose reduction techniques (e.g., Automated exposure control, adjustment of the mA and/or kV according to patient size, use of iterative reconstruction technique) copyright 2010 [employer]- All Rights Reserved Assessment and Plan - Diagnosis (1) Abdominal wall hematoma Is this a current diagnosis for this admission?: Yes Plan: Surgery following. (2) Renal hematoma Is this a current diagnosis for this admission?: Yes Plan: No renal mass on imaging. Discussed with hematology. (3) Elevated troponin Is this a current diagnosis for this admission?: Yes Plan: EKG does not show any acute changes. Patient is currently chest pain-free. Troponins have been flat at 0.06. Cardiology following.
[2018-12-12] MEDS: PROMETHAZINE HCL INJ 25 MG/1 ML VIAL IV PRN (20:09)
[2018-12-12] MEDS ORDERED: DEXTROSE 40% GEL 15 GM TUBE PO PRN ×2 (20:31)
[2018-12-12] MEDS ORDERED: DEXTROSE 50%-WATER 25 GM/50 ML DISP.SYRIN IV PRN ×2 (20:31)
[2018-12-12] MEDS ORDERED: GLUCAGON,HUMAN RECOMB 1 MG INJ SUBCUT PRN (20:31)
[2018-12-13 04:44] LABS: ABSOLUTE EOSINOPHILS # (AUTO) 0.1 10^3/uL (0.0-0.6); ABSOLUTE LYMPHOCYTES (AUTO) 0.7 10^3/uL (0.5-4.7); ABSOLUTE MONOCYTES (AUTO) 0.7 10^3/uL (0.1-1.4); ABSOLUTE NEUT (AUTO) 3.9 10^3/uL (1.7-8.2); BASOPHILS % (AUTO) 0.3 % (0-2); EOSINOPHILS % (AUTO) 1.9 % (0-6); HEMATOCRIT 32.1 % (36.0-47.0); HEMOGLOBIN 10.8 g/dL (12.0-15.5); LYMPHOCYTES % (AUTO) 13.7 % (13-45); MEAN CORPUSCULAR HEMOGLOBIN 29.6 pg (27.0-33.4); MEAN CORPUSCULAR HGB CONC 33.7 g/dL (32.0-36.0); MEAN CORPUSCULAR VOLUME 88 fl (80-97); MONOCYTES % (AUTO) 12.5 % (3-13); PLATELET COUNT 241 10^3/uL (150-450); RED BLOOD COUNT 3.66 10^6/uL (3.72-5.28); RED CELL DISTRIBUTION WIDTH 13.5 % (11.5-14.0); SEGMENTED NEUTROPHILS % (AUTO) 71.6 % (42-78); TOTAL CELLS COUNTED % (AUTO) 100 %; WHITE BLOOD COUNT 5.4 10^3/uL (4.0-10.5)
[2018-12-13] MEDS: VANCOMYCIN HCL 1,500 MG in DEXTROSE 5%-WATER 250 ML IV SCH ×3 (06:06→23:07)
[2018-12-13] MEDS: MORPHINE SULFATE 10 MG/ML INJ IV PRN ×4 (06:12→20:40)
[2018-12-13] MEDS: ONDANSETRON HCL INJ/PF 4 MG/2 ML SDV IV PRN (10:00)
[2018-12-13] MEDS: METOPROLOL TARTRATE 50 MG TABLET PO SCH ×2 (10:00→21:32)
[2018-12-13] MEDS ORDERED: METOPROLOL TARTRATE 25 MG TABLET PO SCH (10:00)
--- NOTE | 2018-12-13 10:12 | EKG REPORT ---
SEVERITY:- ABNORMAL ECG - SINUS TACHYCARDIA LVH WITH SECONDARY REPOLARIZATION ABNORMALITY ANTERIOR Q WAVES, POSSIBLY DUE TO LVH : Confirmed by: Shaw Bland 13-Dec-2018 10:10:21
--- NOTE | 2018-12-13 10:12 | EKG REPORT ---
SEVERITY:- ABNORMAL ECG - SINUS RHYTHM PROBABLE LEFT ATRIAL ABNORMALITY PROBABLE LVH WITH SECONDARY REPOL ABNRM BORDERLINE PROLONGED QT INTERVAL : Confirmed by: Shaw Bland 13-Dec-2018 10:10:31
[2018-12-13] MEDS: CEFEPIME 1 GM/D5W RTU 1 GM/50 ML RTUPB IV SCH ×2 (11:22→21:32)
--- NOTE | 2018-12-13 12:16 | PDOC CONSULTATION ---
Consultation Consult Date: 12/13/18 Attending physician:: TRANG AVILES Provider Consulted: BELIA JAIMES Consult reason:: Hematoma, unexplained bleeding History of Present Illness Admission Date/PCP: 12/12/18 12:57 Patient complains of: Hematoma, abdominal pain History of Present Illness: SUSANA MART is a 58 year old female who presented with abdominal pain, ultimately had CTA of the chest, this indicated a large right psoas hematoma, of note in May she had left upper forehead hematoma that grew to a large size almost golf ball sized and has come down. She is always had easy bruising. She has been having persistent abdominal pain nausea and vomiting as well as right pelvic pain going down the right leg. She cannot really walk on that right leg. She had a remote surgery in the 80s with hysterectomy and did not have bleeding after that but has not really had any surgical procedures since then. Hospitalist team called me yesterday and we sent off all the factor assays. This is all pending and probably will be back sometime next week. I had a long discussion with patient as well as Dr. Lindsay from surgery, at this point we plan to hold off on further operation for the hematoma and most likely will be just monitoring with IV fluids, pain medications and then serial imaging. We will await the factor levels and treat accordingly. Past Medical History Cardiac Medical History: Reports: Hypertension Pulmonary Medical History: Reports: Asthma Neurological Medical History: Reports: Migraine Musculoskeltal Medical History: Reports: Arthritis Past Surgical History Past Surgical History: Reports: Hysterectomy Social History Information Source: Patient Lives with: Family Smoking Status: Current Every Day Smoker Drugs: None - Advance Directive Resuscitation Status: Full Code Family History Family History: Reviewed & Not Pertinent Parental Family History Reviewed: Yes Children Family History Reviewed: Yes Sibling(s) Family History Reviewed.: Yes Medication/Allergy Home Medications: Hydrochlorothiazide [Hydrodiuril 25 mg Tablet] 25 mg PO DAILY 12/12/18 Allergies/Adverse Reactions: amoxicillin [Amoxicillin] Allergy (Verified 12/10/18 16:30) ibuprofen Allergy (Verified 12/10/18 16:30) Penicillins Allergy (Verified 12/10/18 16:30) prednisone Allergy (Verified 12/13/18 09:54) Review of Systems Constitutional: ABSENT: chills, fever(s), headache(s), weight gain, weight loss Eyes: ABSENT: visual disturbances Ears: ABSENT: hearing changes Cardiovascular: ABSENT: chest pain, dyspnea on exertion, edema, orthropnea, palpitations Respiratory: ABSENT: cough, hemoptysis Gastrointestinal: ABSENT: abdominal pain, constipation, diarrhea, hematemesis, hematochezia, nausea, vomiting Genitourinary: ABSENT: dysuria, hematuria Musculoskeletal: ABSENT: joint swelling Integumentary: ABSENT: rash, wounds Neurological: ABSENT: abnormal gait, abnormal speech, confusion, dizziness, focal weakness, syncope Psychiatric: ABSENT: anxiety, depression, homidical ideation, suicidal ideation Endocrine: ABSENT: cold intolerance, heat intolerance, polydipsia, polyuria Hematologic/Lymphatic: ABSENT: easy bleeding, easy bruising Physical Exam Vital Signs: Temp Pulse Resp BP Pulse Ox 99.6 F 109 H 17 117/58 L 94 12/13/18 09:39 12/13/18 09:39 12/13/18 09:39 12/13/18 09:39 12/13/18 09:39 Intake & Output 12/12/18 12/13/18 12/14/18 06:59 06:59 06:59 Intake Total 3290 1850 Output Total 150 Balance 3140 1850 Weight 95.5 kg 94.3 kg General appearance: PRESENT: no acute distress, well-developed, well-nourished Head exam: PRESENT: atraumatic, normocephalic Eye exam: PRESENT: conjunctiva pink, EOMI, PERRLA. ABSENT: scleral icterus Ear exam: PRESENT: normal external ear exam Mouth exam: PRESENT: moist, tongue midline Neck exam: ABSENT: carotid bruit, JVD, lymphadenopathy, thyromegaly Respiratory exam: PRESENT: clear to auscultation jared. ABSENT: rales, rhonchi, wheezes Cardiovascular exam: PRESENT: RRR. ABSENT: diastolic murmur, rubs, systolic murmur Pulses: PRESENT: normal dorsalis pedis pul Vascular exam: PRESENT: normal capillary refill GI/Abdominal exam: PRESENT: normal bowel sounds, soft. ABSENT: distended, guarding, mass, organolmegaly, rebound, tenderness Rectal exam: PRESENT: deferred Extremities exam: PRESENT: full ROM. ABSENT: calf tenderness, clubbing, pedal edema Neurological exam: PRESENT: alert, awake, oriented to person, oriented to place, oriented to time, oriented to situation, CN II-XII grossly intact. ABSENT: motor sensory deficit Psychiatric exam: PRESENT: appropriate affect, normal mood. ABSENT: homicidal ideation, suicidal ideation Skin exam: PRESENT: dry, intact, warm. ABSENT: cyanosis, rash Results Laboratory Results: 12/13/18 04:04 12/12/18 04:58 12/13/18 04:04 WBC 5.4 RBC 3.66 L Hgb 10.8 L Hct 32.1 L MCV 88 MCH 29.6 MCHC 33.7 RDW 13.5 Plt Count 241 Seg Neutrophils % 71.6 Lymphocytes % 13.7 Monocytes % 12.5 Eosinophils % 1.9 Basophils % 0.3 Absolute Neutrophils 3.9 Absolute Lymphocytes 0.7 Absolute Monocytes 0.7 Absolute Eosinophils 0.1 Absolute Basophils 0.0 12/10/18 22:45 Clean Catch Midstream Urine Culture - Final Mixed Urogenital Mary Jane 12/10/18 12/10/18 12/10/18 17:32 20:30 23:14 Troponin I 0.065 0.064 0.067 12/11/18 12/11/18 04:39 10:30 Troponin I 0.066 0.053 Impressions: Chest X-Ray 12/10/18 17:22 IMPRESSION: 1. 10 mm right pulmonary nodule. Consider CT for further evalu ation. 2. Cardiomegaly without pulmonary edema. Abdomen/Pelvis CT 12/10/18 20:16 IMPRESSION: 1. Perinephric high density as detailed above suggestive of subcapsular hematoma of uncertain etiology. There is associated diffuse perinephric stranding with trace high density contents along the course of the renal capsule and minimally along the RIGHT paracolic gutter compatible with trace retroperitoneal hemorrhage. 2. Large volume of RIGHT anterior lateral subcutaneous fat diffuse stranding and more focal high density measuring up to 4.7 x 2.0 cm in thickness with high density components compatible with hematoma. 3. Diagnostic pulmonary angiography without findings to suggest pulmonary arterial embolus. 4. The lungs are clear without focal opacity, pleural effusion or pneumothorax. 5. Bilateral apical centrilobular lucency, a nonspecific finding however raising the possibility of early or mild developing emphysema. 6. Enlargement of the main pulmonary artery measuring up to 3.5 cm concerning for pulmonary arterial hypertension. 7. Indeterminate 12 mm LEFT renal cyst. 8. Focal area of nonspecific increased density within the proximal pancreas, may be within normal limits for the patient. However the possibility of small hematoma, considered less likely, cannot be completely excluded. This may be further evaluated on follow-up imaging. There is no associated peripancreatic stranding. Critical findings were discussed with the patient's nurse Jael 12/10/2018 2046 hours. TECHNICAL DOCUMENTATION: Quality ID # [id number]: Final reports with documentation of one or more dose reduction techniques (e.g., Automated exposure control, adjustment of the mA and/or kV according to patient size, use of iterative reconstruction technique) copyright 2010 [employer]- All Rights Reserved Chest/Abdomen CTA 12/10/18 20:38 IMPRESSION: 1. Perinephric high density as detailed above suggestive of subcapsular hematoma of uncertain etiology. There is associated diffuse perinephric stranding with trace high density contents along the course of the renal capsule and minimally along the RIGHT paracolic gutter compatible with trace retroperitoneal hemorrhage. 2. Large volume of RIGHT anterior lateral subcutaneous fat diffuse stranding and more focal high density measuring up to 4.7 x 2.0 cm in thickness with high density components compatible with hematoma. 3. Diagnostic pulmonary angiography without findings to suggest pulmonary arterial embolus. 4. The lungs are clear without focal opacity, pleural effusion or pneumothorax. 5. Bilateral apical centrilobular lucency, a nonspecific finding however raising the possibility of early or mild developing emphysema. 6. Enlargement of the main pulmonary artery measuring up to 3.5 cm concerning for pulmonary arterial hypertension. 7. Indeterminate 12 mm LEFT renal cyst. 8. Focal area of nonspecific increased density within the proximal pancreas, may be within normal limits for the patient. However the possibility of small hematoma, considered less likely, cannot be completely excluded. This may be further evaluated on follow-up imaging. There is no associated peripancreatic stranding. Critical findings were discussed with the patient's nurse Jael 12/10/2018 2046 hours. TECHNICAL DOCUMENTATION: Quality ID # [id number]: Final reports with documentation of one or more dose reduction techniques (e.g., Automated exposure control, adjustment of the mA and/or kV according to patient size, use of iterative reconstruction technique) copyright 2010 [employer]- All Rights Reserved Status: Image reviewed by me Assessment & Plan - Diagnosis (1) Abdominal wall hematoma Qualifiers: Encounter type: initial encounter Qualified Code(s): S30.1XXA - Contusion of abdominal wall, initial encounter Is this a current diagnosis for this admission?: Yes Plan: Unknown cause of recurrent hematomas, bleeding work-up pending. Agree with holding off on surgery, there may be more complications with that, continue with pain medication as being done as well as hydration. Over time it should resolve itself. If we do see factor level is very low we may need to replete factor levels. Ultimately if she needs continuous repletion, she may need evaluation in [place] because we do not keep a lot of factor in house. (2) Renal hematoma Qualifiers: Encounter type: initial encounter Laterality: right Qualified Code(s): S37.011A - Minor contusion of right kidney, initial encounter Is this a current diagnosis for this admission?: Yes Plan: Also concerning, for some sort of bleeding disorder, bleeding work-up pending. - Time Time Spent: Greater than 70 Minutes - Inpatient Certification Based on my medical assessment, after consideration of the patient's comorbidities, presenting symptoms, or acuity I expect that the services needed warrant INPATIENT care.: Yes I certify that my determination is in accordance with my understanding of Medicare's requirements for reasonable and necessary INPATIENT services [42 CFR 412.3e].: Yes Medical Necessity: Need For IV Fluids, Need for Pain Control, Need for Surgery, Risk of Complication if Not Cared For in Hospital
--- NOTE | 2018-12-13 12:38 | PDOC PROGRESS REPORT ---
Subjective Progress Note for:: 12/13/18 Subjective:: abdominal wall pains Reason For Visit: ABD WALL HEMATOMA,RIGHT KIDNEY CAPSULAR HEMATOMA Physical Exam Vital Signs: Temp Pulse Resp BP Pulse Ox 98.9 F 81 17 106/58 L 94 12/13/18 11:34 12/13/18 11:34 12/13/18 11:34 12/13/18 11:34 12/13/18 11:34 Intake & Output 12/12/18 12/13/18 12/14/18 06:59 06:59 06:59 Intake Total 3290 1850 Output Total 150 Balance 3140 1850 Weight 95.5 kg 94.3 kg Exam: Swollen tender area on the RLQ remains stable but tinning equipment tender but not any worse than yesterday. Claims she could barely walk because of the pain. Results Laboratory Results: 12/13/18 04:04 12/12/18 04:58 12/13/18 04:04 WBC 5.4 RBC 3.66 L Hgb 10.8 L Hct 32.1 L MCV 88 MCH 29.6 MCHC 33.7 RDW 13.5 Plt Count 241 Seg Neutrophils % 71.6 Lymphocytes % 13.7 Monocytes % 12.5 Eosinophils % 1.9 Basophils % 0.3 Absolute Neutrophils 3.9 Absolute Lymphocytes 0.7 Absolute Monocytes 0.7 Absolute Eosinophils 0.1 Absolute Basophils 0.0 12/10/18 22:45 Clean Catch Midstream Urine Culture - Final Mixed Urogenital Mary Jane 12/10/18 12/10/18 12/10/18 17:32 20:30 23:14 Troponin I 0.065 0.064 0.067 12/11/18 12/11/18 04:39 10:30 Troponin I 0.066 0.053 Impressions: Chest X-Ray 12/10/18 17:22 IMPRESSION: 1. 10 mm right pulmonary nodule. Consider CT for further evaluation. 2. Cardiomegaly without pulmonary edema. Abdomen/Pelvis CT 12/10/18 20:16 IMPRESSION: 1. Perinephric high density as detailed above suggestive of subcapsular hematoma of uncertain etiology. There is associated diffuse perinephric stranding with trace high density contents along the course of the renal capsule and minimally along the RIGHT paracolic gutter compatible with trace retroperitoneal hemorrhage. 2. Large volume of RIGHT anterior lateral subcutaneous fat diffuse stranding and more focal high density measuring up to 4.7 x 2.0 cm in thickness with high density components compatible with hematoma. 3. Diagnostic pulmonary angiography without findings to suggest pulmonary arterial embolus. 4. The lungs are clear without focal opacity, pleural effusion or pneumothorax. 5. Bilateral apical centrilobular lucency, a nonspecific finding however raising the possibility of early or mild developing emphysema. 6. Enlargement of the main pulmonary artery measuring up to 3.5 cm concerning for pulmonary arterial hypertension. 7. Indeterminate 12 mm LEFT renal cyst. 8. Focal area of nonspecific increased density within the proximal pancreas, may be within normal limits for the patient. However the possibility of small hematoma, considered less likely, cannot be completely excluded. This may be further evaluated on follow-up imaging. There is no associated peripancreatic stranding. Critical findings were discussed with the patient's nurse Jael 12/10/2018 2046 hours. TECHNICAL DOCUMENTATION: Quality ID # 436: Final reports with documentation of one or more dose reduction techniques (e.g., Automated exposure control, adjustment of the mA and/or kV according to patient size, use of iterative reconstruction technique) copyright 2011 [employer]- All Rights Reserved Chest/Abdomen CTA 12/10/18 20:38 IMPRESSION: 1. Perinephric high density as detailed above suggestive of subcapsular hematoma of uncertain etiology. There is associated diffuse perinephric stranding with trace high density contents along the course of the renal capsule and minimally along the RIGHT paracolic gutter compatible with trace retroperitoneal hemorrhage. 2. Large volume of RIGHT anterior lateral subcutaneous fat diffuse stranding and more focal high density measuring up to 4.7 x 2.0 cm in thickness with high density components compatible with hematoma. 3. Diagnostic pulmonary angiography without findings to suggest pulmonary arterial embolus. 4. The lungs are clear without focal opacity, pleural effusion or pneumothorax. 5. Bilateral apical centrilobular lucency, a nonspecific finding however raising the possibility of early or mild developing emphysema. 6. Enlargement of the main pulmonary artery measuring up to 3.5 cm concerning for pulmonary arterial hypertension. 7. Indeterminate 12 mm LEFT renal cyst. 8. Focal area of nonspecific increased density within the proximal pancreas, may be within normal limits for the patient. However the possibility of small hematoma, considered less likely, cannot be completely excluded. This may be further evaluated on follow-up imaging. There is no associated peripancreatic stranding. Critical findings were discussed with the patient's nurse Jael 12/10/2018 2046 hours. TECHNICAL DOCUMENTATION: Quality ID # [id number]: Final reports with documentation of one or more dose reduction techniques (e.g., Automated exposure control, adjustment of the mA and/or kV according to patient size, use of iterative reconstruction technique) copyright 2011 [employer]- All Rights Reserved Assessment & Plan - Diagnosis (1) Abdominal wall hematoma Qualifiers: Encounter type: initial encounter Qualified Code(s): S30.1XXA - Contusion of abdominal wall, initial encounter Is this a current diagnosis for this admission?: Yes (2) Chest pain Qualifiers: Chest pain type: unspecified Qualified Code(s): R07.9 - Chest pain, unspecified Is this a current diagnosis for this admission?: Yes (3) Elevated troponin Is this a current diagnosis for this admission?: Yes (4) Renal hematoma Qualifiers: Encounter type: initial encounter Laterality: right Qualified Code(s): S37.011A - Minor contusion of right kidney, initial encounter Is this a current diagnosis for this admission?: Yes - Time Time Spent with patient: 15-24 minutes - Inpatient Certification Medical Necessity: Need Close Monitoring Due to Risk of Patient Decompensation, Need for Pain Control - Plan Summary Plan Summary: Have D/W Dr Garcia(personnel records clerk) and Dr trent(anesthesiologist) Patient is high risk for any procedure based on a moderate to severe 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 Talked to patient with Dr Trent and Dr Denise. 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 Since evacuation of hematoma does not appear to be an emergency at this time patient agreed to wait until results of blood work are back. Patient also understands the risk of surgery. She also understands that she may not need surgery if her symptoms improved. Continue on pain mx and empirically on IV antibiotics.
--- NOTE | 2018-12-13 14:02 | PDOC PROGRESS REPORT ---
Subjective Progress Note for:: 12/13/18 Subjective:: This is a 58 year old female admitted by the surgical service for renal hematoma versus abscess. She was complaining at one point about some central nonradiating chest pain has been going on for 5 days. She had equivocal troponin level at .06 hence hospitalist and cardiology services were consulted. 12/11: She denies any abdominal pain, chest pain or shortness of breath at the moment. 12/12: Denies chest pain or shortness of breath. She complains of mild abdominal pain and is asking if the hematoma could be taken out and evacuated. Discussed this is usually managed conservatively but will have the surgeon readdress her concerns. 12/13: No acute event overnight. Says her abdominal pain is better. Hb has been stable. Reason For Visit: ABD WALL HEMATOMA,RIGHT KIDNEY CAPSULAR HEMATOMA Physical Exam Vital Signs: Temp Pulse Resp BP Pulse Ox 98.9 F 81 17 106/58 L 94 12/13/18 11:34 12/13/18 11:34 12/13/18 11:34 12/13/18 11:34 12/13/18 11:34 Intake & Output 12/12/18 12/13/18 12/14/18 06:59 06:59 06:59 Intake Total 3290 1850 Output Total 150 Balance 3140 1850 Weight 210 lb 8.663 oz 207 lb 14.334 oz Results Laboratory Results: 12/13/18 04:04 12/12/18 04:58 12/13/18 04:04 WBC 5.4 RBC 3.66 L Hgb 10.8 L Hct 32.1 L MCV 88 MCH 29.6 MCHC 33.7 RDW 13.5 Plt Count 241 Seg Neutrophils % 71.6 Lymphocytes % 13.7 Monocytes % 12.5 Eosinophils % 1.9 Basophils % 0.3 Absolute Neutrophils 3.9 Absolute Lymphocytes 0.7 Absolute Monocytes 0.7 Absolute Eosinophils 0.1 Absolute Basophils 0.0 12/10/18 22:45 Clean Catch Midstream Urine Culture - Final Mixed Urogenital Mary Jane 12/10/18 12/10/18 12/10/18 17:32 20:30 23:14 Troponin I 0.065 0.064 0.067 12/11/18 12/11/18 04:39 10:30 Troponin I 0.066 0.053 Impressions: Chest X-Ray 12/10/18 17:22 IMPRESSION: 1. 10 mm right pulmonary nodule. Consider CT for further evaluation. 2. Cardiomegaly without pulmonary edema. Abdomen/Pelvis CT 12/10/18 20:16 IMPRESSION: 1. Perinephric high density as detailed above suggestive of subcapsular hematoma of uncertain etiology. There is associated diffuse perinephric stranding with trace high density contents along the course of the renal capsule and minimally along the RIGHT paracolic gutter compatible with trace retroperitoneal hemorrhage. 2. Large volume of RIGHT anterior lateral subcutaneous fat diffuse stranding and more focal high density measuring up to 4.7 x 2.0 cm in thickness with high density components compatible with hematoma. 3. Diagnostic pulmonary angiography without findings to suggest pulmonary arterial embolus. 4. The lungs are clear without focal opacity, pleural effusion or pneumothorax. 5. Bilateral apical centrilobular lucency, a nonspecific finding however raising the possibility of early or mild developing emphysema. 6. Enlargement of the main pulmonary artery measuring up to 3.5 cm concerning for pulmonary arterial hypertension. 7. Indeterminate 12 mm LEFT renal cyst. 8. Focal area of nonspecific increased density within the proximal pancreas, may be within normal limits for the patient. However the possibility of small hematoma, considered less likely, cannot be completely excluded. This may be further evaluated on follow-up imaging. There is no associated peripancreatic stranding. Critical findings were discussed with the patient's nurse Jael 12/10/2018 2046 hours. TECHNICAL DOCUMENTATION: Quality ID # [id number]: Final reports with documentation of one or more dose reduction techniques (e.g., Automated exposure control, adjustment of the mA and/or kV according to patient size, use of iterative reconstruction technique) copyright 2011 [employer]- All Rights Reserved Chest/Abdomen CTA 12/10/18 20:38 IMPRESSION: 1. Perinephric high density as detailed above suggestive of subcapsular hematoma of uncertain etiology. There is associated diffuse perinephric stranding with trace high density contents along the course of the renal capsule and minimally along the RIGHT paracolic gutter compatible with trace retroperitoneal hemorrhage. 2. Large volume of RIGHT anterior lateral subcutaneous fat diffuse stranding and more focal high density measuring up to 4.7 x 2.0 cm in thickness with high density components compatible with hematoma. 3. Diagnostic pulmonary angiography without findings to suggest pulmonary arterial embolus. 4. The lungs are clear without focal opacity, pleural effusion or pneumothorax. 5. Bilateral apical centrilobular lucency, a nonspecific finding however raising the possibility of early or mild developing emphysema. 6. Enlargement of the main pulmonary artery measuring up to 3.5 cm concerning for pulmonary arterial hypertension. 7. Indeterminate 12 mm LEFT renal cyst. 8. Focal area of nonspecific increased density within the proximal pancreas, may be within normal limits for the patient. However the possibility of small hematoma, considered less likely, cannot be completely excluded. This may be further evaluated on follow-up imaging. There is no associated peripancreatic stranding. Critical findings were discussed with the patient's nurse Jael 12/10/2018 2046 hours. TECHNICAL DOCUMENTATION: Quality ID # [id number]: Final reports with documentation of one or more dose reduction techniques (e.g., Automated exposure control, adjustment of the mA and/or kV according to patient size, use of iterative reconstruction technique) copyright 2011 [employer]- All Rights Reserved Assessment and Plan - Diagnosis (1) Abdominal wall hematoma Qualifiers: Encounter type: initial encounter Qualified Code(s): S30.1XXA - Contusion of abdominal wall, initial encounter Is this a current diagnosis for this admission?: Yes Plan: Surgery following. Unlikely to be abscess. Recommend discontinuing IV antibiotics. (2) Renal hematoma Qualifiers: Encounter type: initial encounter Laterality: right Qualified Code(s): S37.011A - Minor contusion of right kidney, initial encounter Is this a current diagnosis for this admission?: Yes Plan: No renal mass on imaging. Discussed with hematology. (3) Elevated troponin Is this a current diagnosis for this admission?: Yes Plan: EKG does not show any acute changes. Patient is currently chest pain-free. Troponins have been flat at 0.06. Cardiology following. - Time Time Spent with patient: 15-24 minutes
[2018-12-13 14:06] LABS: VANCOMYCIN,TROUGH 16.3 ug/mL (5.0-20.0)
[2018-12-13] MEDS: OXYCODONE-ACETAMINOPHEN 5-325 MG TABLET PO PRN (16:21)
[2018-12-13] MEDS: RINGERS SOLUTION,LACTATED 1,000 ML IV PRN (21:32)
--- NOTE | 2018-12-13 21:32 | Progress Note ---
Provider Note Provider Note: CARDIOLOGY PROGRESS NOTE by Dr. Cele Santiago on 12/13/2018. SUBJECTIVE: The patient complains of severe right lower quadrant pain in the abdominal wall. She states she can hardly walk. She has no exertional chest pressure. There is no palpitations. There is no dizziness or syncope. There is no shortness of breath. There is no leg edema. There is no arrhythmia seen on the monitor. PHYSICAL EXAMINATION: The patient is moderately obese. In no acute distress. She is well-groomed. Selected Entries 12/13/18 09:39 Temperature 99.6 F Pulse Rate 109 H Respiratory 17 Rate Blood Pressure 117/58 L [Right Upper Arm] O2 Sat by Pulse 94 Oximetry Oxygen Delivery Room Air Method ( includes room air) HEAD: Is atraumatic normocephalic. EYES: Pupils equal round regular reactive to light accommodation. Extraocular movements are normal. There is no conjunctival pallor. There is no scleral icterus. EARS: Tympanic membranes are intact. External auditory canals are clear. nose: There is no deviated nasal septum. There is no inflammation of the nasal mucous membranes. MOUTH: Mucous membranes of mouth are moist tongue is moist there is no ulcers there is no bleeding from the gums. The patient oral cavity modified Anisha Domi classification is class IV. THROAT: There is no redness of the oropharynx. There is no exudates. SKIN: There is no skin lesions or skin rashes. There is no particular ecchymosis. NECK: Is supple. There is no JVD. Carotids equal t here is no bruit there is faint murmur from the aortic area transmitted over both carotids. There is no carotid delay. There is no lymphadenopathy. There is no goiter. There is no accessory muscle respiration use. Trachea central. LUNGS: Is clear to auscultation percussion. There is no rhonchi rales or wheezing. On no palpation there is some mild tenderness of the sternal area in the front of the chest. HEART: S1-S2 is heard. There is no S3 gallop. There is a questionable S4 gallop present. There is systolic murmur the aortic area with faint radiation to both carotids. There is also murmur of mitral regurgitation. In the left apex with radiation to the left scapular area and also to the left axilla. Also the systolic murmur the left sternal border which increases in intensity with Valsalva. There is no rub. S1 is of normal intensity. ABDOMEN: Is obese. Nontender. There is no paraspinal megaly. There is some degree of discomfort on pressing the right lower quadrant of the abdomen. There is no flank tenderness. Bowel sounds are well heard. EXTREMITIES: Femorals are deep femorals are diminished. Leg pulses slightly diminished. There is no pedal edema. There is no DVT or cellulitis. There is no sinus or clubbing. There is no calf tenderness. HAM TRIMMER: The patient is conscious awake alert oriented x3 with no focal deficits. PSYCHIATRIC: The patient judgment and insight are intact her affect is normal. Labs- All tests 24 hr 12/13/18 12/13/18 12/13/18 04:04 13:26 13:26 WBC 5.4 RBC 3.66 L Hgb 10.8 L Hct 32.1 L MCV 88 MCH 29.6 MCHC 33.7 RDW 13.5 Plt Count 241 Seg Neutrophils % 71.6 Lymphocytes % 13.7 Monocytes % 12.5 Eosinophils % 1.9 Basophils % 0.3 Absolute Neutrophils 3.9 Absolute Lymphocytes 0.7 Absolute Monocytes 0.7 Absolute Eosinophils 0.1 Absolute Basophils 0.0 Creatinine 0.42 L Est GFR ( Amer) > 60 Est GFR (Non-Af Amer) > 60 Time Trough Drawn 1326 Vancomycin Trough 16.3 Chest X-Ray 12/10/18 17:22 IMPRESSION: 1. 10 mm right pulmonary nodule. Consider CT for further evaluation. 2. Cardiomegaly without pulmonary edema. Abdomen/Pelvis CT 12/10/18 20:16 IMPRESSION: 1. Perinephric high density as detailed above suggestive of subcapsular hematoma of uncertain etiology. There is associated diffuse perinephric stranding with trace high density contents along the course of the renal capsule and minimally along the RIGHT paracolic gutter compatible with trace retroperitoneal hemorrhage. 2. Large volume of RIGHT anterior lateral subcutaneous fat diffuse stranding and more focal high density measuring up to 4.7 x 2.0 cm in thickness with high density components compatible with hematoma. 3. Diagnostic pulmonary angiography without findings to suggest pulmonary arterial embolus. 4. The lungs are clear without focal opacity, pleural effusion or pneumothorax. 5. Bilateral apical centrilobular lucency, a nonspecific finding however raising the possibility of early or mild developing emphysema. 6. Enlargement of the main pulmonary artery measuring up to 3.5 cm concerning for pulmonary arterial hypertension. 7. Indeterminate 12 mm LEFT renal cyst. 8. Focal area of nonspecific increased density within the proximal pancreas, may be within normal limits for the patient. However the possibility of small hematoma, considered less likely, cannot be completely excluded. This may be further evaluated on follow-up imaging. There is no associated peripancreatic stranding. Critical findings were discussed with the patient's nurse Jael 12/10/20186 hours. TECHNICAL DOCUMENTATION: Quality ID # [id number]: Final reports with documentation of one or more dose reduction techniques (e.g., Automated exposure control, adjustment of the mA and/or kV according to patient size, use of iterative reconstruction technique) copyright 2011 [email or web address]- All Rights Reserved Chest/Abdomen CTA 12/10/18 20:38 IMPRESSION: 1. Perinephric high density as detailed above suggestive of subcapsular hematoma of uncertain etiology. There is associated diffuse perinephric stranding with trace high density contents along the course of the renal capsule and minimally along the RIGHT paracolic gutter compatible with trace retroperitoneal hemorrhage. 2. Large volume of RIGHT anterior lateral subcutaneous fat diffuse stranding and more focal high density measuring up to 4.7 x 2.0 cm in thickness with high density components compatible with hematoma. 3. Diagnostic pulmonary angiography without findings to suggest pulmonary arterial embolus. 4. The lungs are clear without focal opacity, pleural effusion or pneumothorax. 5. Bilateral apical centrilobular lucency, a nonspecific finding however raising the possibility of early or mild developing emphysema. 6. Enlargement of the main pulmonary artery measuring up to 3.5 cm concerning for pulmonary arterial hypertension. 7. Indeterminate 12 mm LEFT renal cyst. 8. Focal area of nonspecific increased density within the proximal pancreas, may be within normal limits for the patient. However the possibility of small hematoma, considered less likely, cannot be completely excluded. This may be further evaluated on follow-up imaging. There is no associated peripancreatic stranding. Critical findings were discussed with the patient's nurse Jael 12/10/20186 hours. TECHNICAL DOCUMENTATION: Quality ID # [id number]: Final reports with documentation of one or more dose reduction techniques (e.g., Automated exposure control, adjustment of the mA and/or kV according to patient size, use of iterative reconstruction technique) IMPRESSION/RECOMMENDATION 1. Exertional chest pressure: Most likely secondary to the patient's IHSS with the possibility of dynamic obstruction with exertion. Note that the patient is on hydrochlorothiazide. Would recommend discontinuing this. We will start the patient on a beta-syl and increase as tolerated. Patient tolerating increased dose of Lopressor at 50 mg p.o. every 12 hours. Will slowly increase it further. Later would recommend the patient have a IV Lexiscan Cardiolite stress test. Would recommend monitoring the patient's heart rhythm on telemetry. 2. Hypertension: Blood pressure well controlled. 3. History of asthma/history of tobacco abuse. Tobacco cessation counseling given. At present there is no acute exacerbation of asthma or acute asthmatic attack. 4. History of right abdominal wall hematoma versus abscess versus another hematoma intra-abdominal.: Await surgical decision on management of this. The patient thought to be high risk for general anesthesia. Is being treated conservatively. I have recommended that the patient have the hematoma evacuated under deep conscious sedation. 5. History of migraines. 6. History of tobacco abuse: Tobacco cessation counseling given. 7. Symptoms suggestive of sleep apnea. Will recommend empiric BiPAP therapy in the hospital. Patient recommended to have a sleep study as an outpatient. Medications reviewed. Medication management plan discussed with the attending physician and the surgical list on the case. Medical decision making is of high complexity. 40 minutes spent on this patient more than 50% of time spent on direct patient care. Will follow.
[2018-12-14] MEDS: OXYCODONE-ACETAMINOPHEN 5-325 MG TABLET PO PRN ×4 (03:20→19:49)
[2018-12-14 04:35] LABS: ABSOLUTE EOSINOPHILS # (AUTO) 0.1 10^3/uL (0.0-0.6); ABSOLUTE LYMPHOCYTES (AUTO) 0.7 10^3/uL (0.5-4.7); ABSOLUTE MONOCYTES (AUTO) 0.7 10^3/uL (0.1-1.4); ABSOLUTE NEUT (AUTO) 3.3 10^3/uL (1.7-8.2); BASOPHILS % (AUTO) 0.6 % (0-2); EOSINOPHILS % (AUTO) 2.5 % (0-6); HEMATOCRIT 29.9 % (36.0-47.0); HEMOGLOBIN 10.3 g/dL (12.0-15.5); LYMPHOCYTES % (AUTO) 15.1 % (13-45); MEAN CORPUSCULAR HEMOGLOBIN 30.3 pg (27.0-33.4); MEAN CORPUSCULAR HGB CONC 34.5 g/dL (32.0-36.0); MEAN CORPUSCULAR VOLUME 88 fl (80-97); MONOCYTES % (AUTO) 14.1 % (3-13); PLATELET COUNT 239 10^3/uL (150-450); RED BLOOD COUNT 3.41 10^6/uL (3.72-5.28); RED CELL DISTRIBUTION WIDTH 13.6 % (11.5-14.0); SEGMENTED NEUTROPHILS % (AUTO) 67.7 % (42-78); TOTAL CELLS COUNTED % (AUTO) 100 %; WHITE BLOOD COUNT 4.9 10^3/uL (4.0-10.5)
[2018-12-14 04:41] LABS: ANION GAP 5 (5-19); BLOOD UREA NITROGEN 8 mg/dL (7-20); CALCIUM 8.6 mg/dL (8.4-10.2); CARBON DIOXIDE 26 mmol/L (22-30); CHLORIDE 103 mmol/L (98-107); GLUCOSE 103 mg/dL (75-110); POTASSIUM 3.4 mmol/L (3.6-5.0)
[2018-12-14] MEDS: VANCOMYCIN HCL 1,500 MG in DEXTROSE 5%-WATER 250 ML IV SCH ×2 (06:12→15:25)
[2018-12-14] MEDS: MORPHINE SULFATE 10 MG/ML INJ IV PRN ×2 (06:17→16:05)
[2018-12-14] MEDS ORDERED: POTASSIUM CHLORIDE 10 MEQ CAPSULE.ER PO ONE ×3 (09:00→23:00)
[2018-12-14] MEDS: PROMETHAZINE HCL INJ 25 MG/1 ML VIAL IV PRN (09:06)
[2018-12-14] MEDS: METOPROLOL TARTRATE 50 MG TABLET PO SCH ×2 (10:09→22:17)
[2018-12-14] MEDS: CEFEPIME 1 GM/D5W RTU 1 GM/50 ML RTUPB IV SCH (10:12)
--- NOTE | 2018-12-14 11:41 | PDOC PROGRESS REPORT ---
Subjective Progress Note for:: 12/14/18 Subjective:: comfortable, constipated Reason For Visit: ABD WALL HEMATOMA,RIGHT KIDNEY CAPSULAR HEMATOMA Physical Exam Vital Signs: Temp Pulse Resp BP Pulse Ox 98.6 F 92 21 H 100/50 L 98 12/14/18 07:53 12/14/18 07:53 12/14/18 07:53 12/14/18 07:53 12/14/18 07:53 Intake & Output 12/13/18 12/14/18 12/15/18 06:59 06:59 06:59 Intake Total 1850 3590 250 Balance 1850 3590 250 Weight 94.3 kg 94.3 kg General appearance: PRESENT: no acute distress Head exam: PRESENT: other - left forehead hematoma GI/Abdominal exam: PRESENT: other - right lateral abdomen and posterior abdomen slightly tense, not tender Results Laboratory Results: 12/14/18 03:54 12/14/18 03:54 12/13/18 12/14/18 12/14/18 13:26 03:54 03:54 WBC 4.9 RBC 3.41 L Hgb 10.3 L Hct 29.9 L MCV 88 MCH 30.3 MCHC 34.5 RDW 13.6 Plt Count 239 Seg Neutrophils % 67.7 Lymphocytes % 15.1 Monocytes % 14.1 H Eosinophils % 2.5 Basophils % 0.6 Absolute Neutrophils 3.3 Absolute Lymphocytes 0.7 Absolute Monocytes 0.7 Absolute Eosinophils 0.1 Absolute Basophils 0.0 Sodium 134.0 L Potassium 3.4 L Chloride 103 Carbon Dioxide 26 Anion Gap 5 BUN 8 Creatinine 0.42 L 0.44 L Est GFR ( Amer) > 60 > 60 Est GFR (Non-Af Amer) > 60 > 60 Glucose 103 Calcium 8.6 12/10/18 12/10/18 12/10/18 17:32 20:30 23:14 Troponin I 0.065 0.064 0.067 12/11/18 12/11/18 04:39 10:30 Troponin I 0.066 0.053 Impressions: Chest X-Ray 12/10/18 17:22 IMPRESSION: 1. 10 mm right pulmonary nodule. Consider CT for further evaluation. 2. Cardiomegaly without pulmonary edema. Abdomen/Pelvis CT 12/10/18 20:16 IMPRESSION: 1. Perinephric high density as detailed above suggestive of subcapsular hematoma of uncertain etiology. There is associated diffuse perinephric stranding with trace high density contents along the course of the renal capsule and minimally along the RIGHT paracolic gutter compatible with trace retroperitoneal hemorrhage. 2. Large volume of RIGHT anterior lateral subcutaneous fat diffuse stranding and more focal high density measuring up to 4.7 x 2.0 cm in thickness with high density components compatible with hematoma. 3. Diagnostic pulmonary angiography without findings to suggest pulmonary arterial embolus. 4. The lungs are clear without focal opacity, pleural effusion or pneumothorax. 5. Bilateral apical centrilobular lucency, a nonspecific finding however raising the possibility of early or mild developing emphysema. 6. Enlargement of the main pulmonary artery measuring up to 3.5 cm concerning for pulmonary arterial hypertension. 7. Indeterminate 12 mm LEFT renal cyst. 8. Focal area of nonspecific increased density within the proximal pancreas, may be within normal limits for the patient. However the possibility of small hematoma, considered less likely, cannot be completely excluded. This may be further evaluated on follow-up imaging. There is no associated peripancreatic stranding. Critical findings were discussed with the patient's nurse Jael 12/10/2018 2046 hours. TECHNICAL DOCUMENTATION: Quality ID # 436: Final reports with documentation of one or more dose reduction techniques (e.g., Automated exposure control, adjustment of the mA and/or kV according to patient size, use of iterative reconstruction technique) copyright 2011 [employer]- All Rights Reserved Chest/Abdomen CTA 12/10/18 20:38 IMPRESSION: 1. Perinephric high density as detailed above suggestive of subcapsular hematoma of uncertain etiology. There is associated diffuse perinephric stranding with trace high density contents along the course of the renal capsule and minimally along the RIGHT paracolic gutter compatible with trace retroperitoneal hemorrhage. 2. Large volume of RIGHT anterior lateral subcutaneous fat diffuse stranding and more focal high density measuring up to 4.7 x 2.0 cm in thickness with high density components compatible with hematoma. 3. Diagnostic pulmonary angiography without findings to suggest pulmonary arterial embolus. 4. The lungs are clear without focal opacity, pleural effusion or pneumothorax. 5. Bilateral apical centrilobular lucency, a nonspecific finding however raising the possibility of early or mild developing emphysema. 6. Enlargement of the main pulmonary artery measuring up to 3.5 cm concerning for pulmonary arterial hypertension. 7. Indeterminate 12 mm LEFT renal cyst. 8. Focal area of nonspecific increased density within the proximal pancreas, may be within normal limits for the patient. However the possibility of small hematoma, considered less likely, cannot be completely excluded. This may be further evaluated on follow-up imaging. There is no associated peripancreatic stranding. Critical findings were discussed with the patient's nurse Jael 12/10/2018 2046 hours. TECHNICAL DOCUMENTATION: Quality ID # 436: Final reports with documentation of one or more dose reduction techniques (e.g., Automated exposure control, adjustment of the mA and/or kV according to patient size, use of iterative reconstruction technique) copyright 2010 [employer]- All Rights Reserved Assessment & Plan - Diagnosis (3) Abdominal wall hematoma Qualifiers: Encounter type: initial encounter Qualified Code(s): S30.1XXA - Contusion of abdominal wall, initial encounter Is this a current diagnosis for this admission?: Yes - Plan Summary Plan Summary: A/ multiple hematoma right abdominal wall, right perinephric hematoma, left forehead hematoma H/H stable (02/24) VSS Hematology blood work pending No surgery options P/ Home today Magnesiun Citrate to move bowel before discharge follow up with Hematology in 2 weeks follow up with Surgery Clinic in 2 weeks Avoid contact sports
--- NOTE | 2018-12-14 12:03 | PDOC PROGRESS REPORT ---
Subjective Progress Note for:: 12/14/18 Subjective:: Still with fairly severe pain. Percocet does not seem to be controlling it but the IV morphine is. Reason For Visit: ABD WALL HEMATOMA,RIGHT KIDNEY CAPSULAR HEMATOMA Physical Exam Vital Signs: Temp Pulse Resp BP Pulse Ox 98.6 F 92 21 H 126/78 H 98 12/14/18 07:53 12/14/18 07:53 12/14/18 07:53 12/14/18 11:48 12/14/18 07:53 Intake & Output 12/13/18 12/14/18 12/15/18 06:59 06:59 06:59 Intake Total 1850 3590 300 Balance 1850 3590 300 Weight 94.3 kg 94.3 kg General appearance: PRESENT: no acute distress, well-developed, well-nourished Head exam: PRESENT: atraumatic, normocephalic Eye exam: PRESENT: conjunctiva pink, EOMI, PERRLA. ABSENT: scleral icterus Ear exam: PRESENT: normal external ear exam Mouth exam: PRESENT: moist, tongue midline Neck exam: ABSENT: carotid bruit, JVD, lymphadenopathy, thyromegaly Respiratory exam: PRESENT: clear to auscultation jared. ABSENT: rales, rhonchi, wheezes Cardiovascular exam: PRESENT: RRR. ABSENT: diastolic murmur, rubs, systolic murmur Pulses: PRESENT: normal dorsalis pedis pul Vascular exam: PRESENT: normal capillary refill GI/Abdominal exam: PRESENT: normal bowel sounds, soft. ABSENT: distended, guarding, mass, organolmegaly, rebound, tenderness Rectal exam: PRESENT: deferred Extremities exam: PRESENT: full ROM. ABSENT: calf tenderness, clubbing, pedal edema Neurological exam: PRESENT: alert, awake, oriented to person, oriented to place, oriented to time, oriented to situation, CN II-XII grossly intact. ABSENT: motor sensory deficit Psychiatric exam: PRESENT: appropriate affect, normal mood. ABSENT: homicidal ideation, suicidal ideation Skin exam: PRESENT: dry, intact, warm. ABSENT: cyanosis, rash Results Laboratory Results: 12/14/18 03:54 12/14/18 03:54 12/13/18 12/14/18 12/14/18 13:26 03:54 03:54 WBC 4.9 RBC 3.41 L Hgb 10.3 L Hct 29.9 L MCV 88 MCH 30.3 MCHC 34.5 RDW 13.6 Plt Count 239 Seg Neutrophils % 67.7 Lymphocytes % 15.1 Monocytes % 14.1 H Eosinophils % 2.5 Basophils % 0.6 Absolute Neutrophils 3.3 Absolute Lymphocytes 0.7 Absolute Monocytes 0.7 Absolute Eosinophils 0.1 Absolute Basophils 0.0 Sodium 134.0 L Potassium 3.4 L Chloride 103 Carbon Dioxide 26 Anion Gap 5 BUN 8 Creatinine 0.42 L 0.44 L Est GFR ( Amer) > 60 > 60 Est GFR (Non-Af Amer) > 60 > 60 Glucose 103 Calcium 8.6 12/10/18 12/10/18 12/10/18 17:32 20:30 23:14 Troponin I 0.065 0.064 0.067 12/11/18 12/11/18 04:39 10:30 Troponin I 0.066 0.053 Impressions: Chest X-Ray 12/10/18 17:22 IMPRESSION: 1. 10 mm right pulmonary nodule. Consider CT for further evaluation. 2. Cardiomegaly without pulmonary edema. Abdomen/Pelvis CT 12/10/18 20:16 IMPRESSION: 1. Perinephric high density as detailed above suggestive of subcapsular hematoma of uncertain etiology. There is associated diffuse perinephric stranding with trace high density contents along the course of the renal capsule and minimally along the RIGHT paracolic gutter compatible with trace retroperitoneal hemorrhage. 2. Large volume of RIGHT anterior lateral subcutaneous fat diffuse stranding and more focal high density measuring up to 4.7 x 2.0 cm in thickness with high density components compatible with hematoma. 3. Diagnostic pulmonary angiography without findings to suggest pulmonary arterial embolus. 4. The lungs are clear without focal opacity, pleural effusion or pneumothorax. 5. Bilateral apical centrilobular lucency, a nonspecific finding however raising the possibility of early or mild developing emphysema. 6. Enlargement of the main pulmonary artery measuring up to 3.5 cm concerning for pulmonary arterial hypertension. 7. Indeterminate 12 mm LEFT renal cyst. 8. Focal area of nonspecific increased density within the proximal pancreas, may be within normal limits for the patient. However the possibility of small hematoma, considered less likely, cannot be completely excluded. This may be further evaluated on follow-up imaging. There is no associated peripancreatic stranding. Critical findings were discussed with the patient's nurse Jael 12/10/2018 2046 hours. TECHNICAL DOCUMENTATION: Quality ID # 436: Final reports with documentation of one or more dose reduction techniques (e.g., Automated exposure control, adjustment of the mA and/or kV according to patient size, use of iterative reconstruction technique) copyright 2010 [employer]- All Rights Reserved Chest/Abdomen CTA 12/10/18 20:38 IMPRESSION: 1. Perinephric high density as detailed above suggestive of subcapsular hematoma of uncertain etiology. There is associated diffuse perinephric stranding with trace high density contents along the course of the renal capsule and minimally along the RIGHT paracolic gutter compatible with trace retroperitoneal hemorrhage. 2. Large volume of RIGHT anterior lateral subcutaneous fat diffuse stranding and more focal high density measuring up to 4.7 x 2.0 cm in thickness with high density components compatible with hematoma. 3. Diagnostic pulmonary angiography without findings to suggest pulmonary arterial embolus. 4. The lungs are clear without focal opacity, pleural effusion or pneumothorax. 5. Bilateral apical centrilobular lucency, a nonspecific finding however raising the possibility of early or mild developing emphysema. 6. Enlargement of the main pulmonary artery measuring up to 3.5 cm concerning for pulmonary arterial hypertension. 7. Indeterminate 12 mm LEFT renal cyst. 8. Focal area of nonspecific increased density within the proximal pancreas, may be within normal limits for the patient. However the possibility of small hematoma, considered less likely, cannot be completely excluded. This may be further evaluated on follow-up imaging. There is no associated peripancreatic stranding. Critical findings were discussed with the patient's nurse Jael 12/10/2018 2046 hours. TECHNICAL DOCUMENTATION: Quality ID # [id number]: Final reports with documentation of one or more dose reduction techniques (e.g., Automated exposure control, adjustment of the mA and/or kV according to patient size, use of iterative reconstruction technique) copyright 2010 [employer]- All Rights Reserved Assessment & Plan - Diagnosis (1) Abdominal wall hematoma Qualifiers: Encounter type: subsequent encounter Qualified Code(s): S30.1XXD - Contusion of abdominal wall, subsequent encounter Is this a current diagnosis for this admission?: Yes Plan: Awaiting bleeding work-up, we could see her as an outpatient for results. (2) Renal hematoma Qualifiers: Encounter type: initial encounter Laterality: right Qualified Code(s): S37.011A - Minor contusion of right kidney, initial encounter Is this a current diagnosis for this admission?: Yes - Time Time Spent with patient: 35 or more minutes
--- NOTE | 2018-12-14 12:06 | Discharge Summary ---
Discharge Summary (SDC) - Discharge Final Diagnosis: Hematoma of right abdominal wall, right perinephric area, left forehead Discharge Date: 12/14/18 Condition: Stable Treatment or Instructions: Follow up w/ Surgery Clinic ([facility]) in 2 weeks Follow up with Dr. Wheeler (Hematology) in 2 weeks No contact sports or activities x 6 weeks Prescriptions: Docusate Sodium [Colace 100 mg Capsule] 100 mg PO BID #60 capsule Tramadol HCl/Acetaminophen [Tramadol-Acetaminophn 37.5-325] 1 each PO Q6 #30 tablet Discharge Diet: Regular Report the Following to Your Physician Immediately: Increase in Pain, Unusual Bleeding
[2018-12-14] MEDS: MAGNESIUM CITRATE 296 ML BOTTLE PO ONE ×2 (12:29→15:58)
[2018-12-14] MEDS ORDERED: METOPROLOL TARTRATE 25 MG TABLET PO ONE (12:30)
[2018-12-14] MEDS ORDERED: BISACODYL 10 MG SUPP.RECT PR ONE (12:30)
--- NOTE | 2018-12-14 12:35 | DISCHARGE SUMMARY E ---
Discharge Summary NAME: SUSANA MART : 1960 AGE: 58Y ADMITTED: 12/12/2018 DISCHARGED: 12/14/2018 FINAL DIAGNOSIS: 1. HEMATOMA RIGHT ABDOMINAL WALL. 2. HEMATOMA RIGHT PERINEPHRITIC AREA. 3. HEMATOMA LEFT FOREHEAD. PROCEDURE: None. COMPLICATIONS: None. HOSPITAL COURSE: This is an obese 58-year-old female who presented to the hospital complaining on anterior abdominal wall on the right side. A CAT scan was done revealing a large hematoma. In addition she had a hematoma localized in the right perinephric area and a small hematoma on the right frontal area. She was admitted for observation. Her H and H remained stable. Hematology/Oncology was consulted for a possibility of a spontaneously bleeding disorder. The blood work was sent and results were not obtained at the time of discharge. The patient was followed. There was no further drop of the hemoglobin and hematocrit and no enlargement in hematomas. She was given a laxatives on December 12 because she became constipated due to the unusual large amount of narcotics. The patient was discharged to home on December 15, [address] Bates, bricklayer, as the patient was being evaluated for optimal beta-syl therapy to treat her hypertrophic obstructive cardiomyopathy. DISCHARGE ORDERS: The patient was discharged home on December 15, 2018 and she was given a regular diet and follow up with the surgery office in 2 weeks. Follow up with the senior data analyst Dr. Burt in 2 weeks. Activity as tolerated. No contact sports for about 6 weeks. She was given metoprolol by mouth, as per Dr. Bates, Tramadol with Tylenol 37.5/325 mg 1 tabled p.o. every 6 hours p.r.n. for pain. DICTATING PHYSICIAN: JOHN CAIN M.D. [id number] PHY#: [id number] ID: [id number] JOB#: [id number] ACCT: [id number] cc:Reji STRINGER M.D. > [facility]
--- NOTE | 2018-12-14 13:50 | PDOC PROGRESS REPORT ---
Subjective Progress Note for:: 12/14/18 Subjective:: This is a 58 year old female admitted by the surgical service for renal hematoma versus abscess. She was complaining at one point about some central nonradiating chest pain has been going on for 5 days. She had equivocal troponin level at .06 hence hospitalist and cardiology services were consulted. 12/11: She denies any abdominal pain, chest pain or shortness of breath at the moment. 12/12: Denies chest pain or shortness of breath. She complains of mild abdominal pain and is asking if the hematoma could be taken out and evacuated. Discussed this is usually managed conservatively but will have the surgeon readdress her concerns. 12/13: Says her abdominal pain is better. Hb has been stable. 12/14: No acute event overnight. She has intermitted abdominal pain overnight and had poor oral intake. Will replace slightly low Potassium. Reason For Visit: ABD WALL HEMATOMA,RIGHT KIDNEY CAPSULAR HEMATOMA Physical Exam Vital Signs: Temp Pulse Resp BP Pulse Ox 98.6 F 79 17 126/78 H 100 12/14/18 11:27 12/14/18 11:27 12/14/18 11:27 12/14/18 11:48 12/14/18 11:27 Intake & Output 12/13/18 12/14/18 12/15/18 06:59 06:59 06:59 Intake Total 1850 3590 300 Balance 1850 3590 300 Weight 207 lb 14.334 oz 207 lb 14.334 oz General appearance: PRESENT: no acute distress, well-developed, well-nourished Head exam: PRESENT: atraumatic, normocephalic Eye exam: PRESENT: conjunctiva pink, EOMI, PERRLA. ABSENT: scleral icterus Ear exam: PRESENT: normal external ear exam Mouth exam: PRESENT: moist, tongue midline Neck exam: ABSENT: carotid bruit, JVD, lymphadenopathy, thyromegaly Respiratory exam: PRESENT: clear to auscultation jared. ABSENT: rales, rhonchi, w heezes Cardiovascular exam: PRESENT: RRR. ABSENT: diastolic murmur, rubs, systolic murmur Pulses: PRESENT: normal dorsalis pedis pul GI/Abdominal exam: PRESENT: normal bowel sounds, soft. ABSENT: distended, guarding, mass, organolmegaly, rebound, tenderness Rectal exam: PRESENT: deferred Neurological exam: PRESENT: alert, awake, oriented to person, oriented to place, oriented to time, oriented to situation, CN II-XII grossly intact. ABSENT: motor sensory deficit Results Laboratory Results: 12/14/18 03:54 12/14/18 03:54 12/13/18 12/14/18 12/14/18 13:26 03:54 03:54 WBC 4.9 RBC 3.41 L Hgb 10.3 L Hct 29.9 L MCV 88 MCH 30.3 MCHC 34.5 RDW 13.6 Plt Count 239 Seg Neutrophils % 67.7 Lymphocytes % 15.1 Monocytes % 14.1 H Eosinophils % 2.5 Basophils % 0.6 Absolute Neutrophils 3.3 Absolute Lymphocytes 0.7 Absolute Monocytes 0.7 Absolute Eosinophils 0.1 Absolute Basophils 0.0 Sodium 134.0 L Potassium 3.4 L Chloride 103 Carbon Dioxide 26 Anion Gap 5 BUN 8 Creatinine 0.42 L 0.44 L Est GFR ( Amer) > 60 > 60 Est GFR (Non-Af Amer) > 60 > 60 Glucose 103 Calcium 8.6 12/10/18 12/10/18 12/10/18 17:32 20:30 23:14 Troponin I 0.065 0.064 0.067 12/11/18 12/11/18 04:39 10:30 Troponin I 0.066 0.053 Impressions: Chest X-Ray 12/10/18 17:22 IMPRESSION: 1. 10 mm right pulmonary nodule. Consider CT for further evaluation. 2. Cardiomegaly without pulmonary edema. Abdomen/Pelvis CT 12/10/18 20:16 IMPRESSION: 1. Perinephric high density as detailed above suggestive of subcapsular hematoma of uncertain etiology. There is associated diffuse perinephric stranding with trace high density contents along the course of the renal capsule and minimally along the RIGHT paracolic gutter compatible with trace retroperitoneal hemorrhage. 2. Large volume of RIGHT anterior lateral subcutaneous fat diffuse stranding and more focal high density measuring up to 4.7 x 2.0 cm in thickness with high density components compatible with hematoma. 3. Diagnostic pulmonary angiography without findings to suggest pulmonary arterial embolus. 4. The lungs are clear without focal opacity, pleural effusion or pneumothorax. 5. Bilateral apical centrilobular lucency, a nonspecific finding however raising the possibility of early or mild developing emphysema. 6. Enlargement of the main pulmonary artery measuring up to 3.5 cm concerning for pulmonary arterial hypertension. 7. Indeterminate 12 mm LEFT renal cyst. 8. Focal area of nonspecific increased density within the proximal pancreas, may be within normal limits for the patient. However the possibility of small hematoma, considered less likely, cannot be completely excluded. This may be further evaluated on follow-up imaging. There is no associated peripancreatic stranding. Critical findings were discussed with the patient's nurse Jael 12/10/20182045 hours. TECHNICAL DOCUMENTATION: Quality ID # 436: Final reports with documentation of one or more dose reduction techniques (e.g., Automated exposure control, adjustment of the mA and/or kV according to patient size, use of iterative reconstruction technique) copyright 2010 [employer]- All Rights Reserved Chest/Abdomen CTA 12/10/18 20:38 IMPRESSION: 1. Perinephric high density as detailed above suggestive of subcapsular hematoma of uncertain etiology. There is associated diffuse perinephric stranding with trace high density contents along the course of the renal capsule and minimally along the RIGHT paracolic gutter compatible with trace retroperitoneal hemorrhage. 2. Large volume of RIGHT anterior lateral subcutaneous fat diffuse stranding and more focal high density measuring up to 4.7 x 2.0 cm in thickness with high density components compatible with hematoma. 3. Diagnostic pulmonary angiography without findings to suggest pulmonary arterial embolus. 4. The lungs are clear without focal opacity, pleural effusion or pneumothorax. 5. Bilateral apical centrilobular lucency, a nonspecific finding however raising the possibility of early or mild developing emphysema. 6. Enlargement of the main pulmonary artery measuring up to 3.5 cm concerning for pulmonary arterial hypertension. 7. Indeterminate 12 mm LEFT renal cyst. 8. Focal area of nonspecific increased density within the proximal pancreas, may be within normal limits for the patient. However the possibility of small hematoma, considered less likely, cannot be completely excluded. This may be further evaluated on follow-up imaging. There is no associated peripancreatic stranding. Critical findings were discussed with the patient's nurse Jael 12/10/20182045 hours. TECHNICAL DOCUMENTATION: Quality ID # 436: Final reports with documentation of one or more dose reduction techniques (e.g., Automated exposure control, adjustment of the mA and/or kV according to patient size, use of iterative reconstruction technique) copyright 2010 [employer]- All Rights Reserved Assessment and Plan - Diagnosis (1) Abdominal wall hematoma Qualifiers: Encounter type: subsequent encounter Qualified Code(s): S30.1XXD - Contusion of abdominal wall, subsequent encounter Is this a current diagnosis for this admission?: Yes Plan: Surgery following. 12/13: Unlikely to be abscess. Recommend discontinuing IV antibiotics. 12/14: Being managed conservatively. (2) Renal hematoma Qualifiers: Encounter type: initial encounter Laterality: right Qualified Code(s): S37.011A - Minor contusion of right kidney, initial encounter Is this a current diagnosis for this admission?: Yes Plan: No renal mass on imaging. Consulted and discussed with hematology. (3) Elevated troponin Is this a current diagnosis for this admission?: Yes Plan: EKG does not show any acute changes. Patient is currently chest pain-free. Troponins have been flat at 0.06. Cardiology following. (4) IHSS (idiopathic hypertrophic subaortic stenosis) Is this a current diagnosis for this admission?: Yes - Time Time Spent with patient: 15-24 minutes
--- NOTE | 2018-12-14 13:55 | Progress Note ---
Provider Note Provider Note: CARDIOLOGY PROGRESS NOTE by Dr. Cele Santiago on 12/14/2018. SUBJECTIVE: The patient is no exertional chest pressure. Her blood pressure remains stable. She is off the hydrochlorothiazide. She has resting chest wall soreness which is reproducible on pressing on the chest. There is no shortness of breath. There is no PND orthopnea. There is no arrhythmia seen on the monitor. The patient denies any dizziness syncope or near syncope.. There is no leg edema. The patient's abdominal wall hematoma remains stable. 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 This is after discussion with the surgical list. PHYSICAL EXAMINATION: The patient is moderately obese. In no acute distress. She is well-groomed. Selected Entries 12/14/18 12/14/18 11:27 11:48 Temperature 98.6 F Temperature Oral Source Pulse Rate 79 Respiratory 17 Rate Blood Pressure 126/78 H [Right Upper Arm] Blood Pressure 94 Mean [Right Upper Arm] Blood Pressure Supine Position [Right Upper Arm] O2 Sat by Pulse 100 Oximetry Oxygen Delivery Room Air Method HEAD: Is atraumatic normocephalic. EYES: Pupils equal round regular reactive to light accommodation. Extraocular movements are normal. There is no conjunctival pallor. There is no scleral icterus. EARS: Tympanic membranes are intact. External auditory canals are clear. nose: There is no deviated nasal septum. There is no inflammation of the nasal mucous membranes. MOUTH: Mucous membranes of mouth are moist tongue is moist there is no ulcers there is no bleeding from the gums. The patient oral cavity modified Anisha Domi classification is class IV. THROAT: There is no redness of the oropharynx. There is no exudates. SKIN: There is no skin lesions or skin rashes. There is no particular ecchymosis. NECK: Is supple. There is no JVD. Carotids equal there is no bruit there is faint murmur from the aortic area transmitted over both carotids. There is no carotid delay. There is no lymphadenopathy. There is no goiter. There is no accessory muscle respiration use. Trachea central. LUNGS: Is clear to auscultation percussion. There is no rhonchi rales or wheezing. On no palpation there is some mild tenderness of the sternal area in the front of the chest. HEART: S1-S2 is heard. There is no S3 gallop. There is a questionable S4 gallop present. There is systolic murmur the aortic area with faint radiation to both carotids. There is also murmur of mitral regurgitation. In the left apex with radiation to the left scapular area and also to the left axilla. Also the systolic murmur the left sternal border which increases in intensity with Valsalva. There is no rub. S1 is of normal intensity. ABDOMEN: Is obese. Nontender. There is no paraspinal megaly. There is some degree of discomfort on pressing the right lower quadrant of the abdomen. There is no flank tenderness. Bowel sounds are well heard. EXTREMITIES: Femorals are deep femorals are diminished. Leg pulses slightly diminished. There is no pedal edema. There is no DVT or cellulitis. There is no sinus or clubbing. There is no calf tenderness. HEAD OF OPERATION AND LOGISTICS: The patient is conscious awake alert oriented x3 with no focal deficits. PSYCHIATRIC: The patient judgment and insight are intact her affect is normal. Labs- All tests 24 hr 12/13/18 12/13/18 12/14/18 13:26 13:26 03:54 WBC 4.9 RBC 3.41 L Hgb 10.3 L Hct 29.9 L MCV 88 MCH 30.3 MCHC 34.5 RDW 13.6 Plt Count 239 Seg Neutrophils % 67.7 Lymphocytes % 15.1 Monocytes % 14.1 H Eosinophils % 2.5 Basophils % 0.6 Absolute Neutrophils 3.3 Absolute Lymphocytes 0.7 Absolute Monocytes 0.7 Absolute Eosinophils 0.1 Absolute Basophils 0.0 Sodium Potassium Chloride Carbon Dioxide Anion Gap BUN Creatinine 0.42 L Est GFR ( Amer) > 60 Est GFR (Non-Af Amer) > 60 Glucose Calcium Time Trough Drawn 1326 Vancomycin Trough 16.3 12/14/18 03:54 WBC RBC Hgb Hct MCV MCH MCHC RDW Plt Count Seg Neutrophils % Lymphocytes % Monocytes % Eosinophils % Basophils % Absolute Neutrophils Absolute Lymphocytes Absolute Monocytes Absolute Eosinophils Absolute Basophils Sodium 134.0 L Potassium 3.4 L Chloride 103 Carbon Dioxide 26 Anion Gap 5 BUN 8 Creatinine 0.44 L Est GFR ( Amer) > 60 Est GFR (Non-Af Amer) > 60 Glucose 103 Calcium 8.6 Time Trough Drawn Vancomycin Trough IMPRESSION/RECOMMENDATION 1. IHSS [H O C M:]. Patient's symptoms of exertional chest pressure improved with the beta-blockers. Would recommend increase the patient's beta-syl will give an extra dose of Lopressor 25 now and increase the Lopressor to 75 mg p.o. twice daily. Avoid diuretics. 2. Hypertension: Blood pressure well controlled. 3. History of asthma/history of tobacco abuse. Tobacco cessation counseling given. At present there is no acute exacerbation of asthma or acute asthmatic attack. 4. History of right abdominal wall hematoma versus abscess versus another hematoma intra-abdominal.: Await surgical decision on management of this. The patient thought to be high risk for general anesthesia. Is being treated conservatively. I have recommended that the patient have the hematoma evacuated under deep conscious sedation. 5. Hypokalemia: Replace potassium patient's potassium. 6. History of tobacco abuse: Tobacco cessation counseling given. 7. Symptoms suggestive of sleep apnea. Will recommend empiric BiPAP therapy in the hospital. Patient recommended to have a sleep study as an outpatient. 8.History of migraines. Medications reviewed. Medications adjusted. Medical decision making is still of high complexity. Discussed management plan with the surgical list and the attending physician on the case. 40 minutes spent on this patient more than 50% of the time spent on direct patient care. Hopefully patient will be discharged home tomorrow. She will be followed up closely. I have discussed with the patient that she needs to get her daughters and his relatives/siblings checked for IHSS. The patient has been advised no contact sports and no heavy or strenuous activity. We will closely follow the patient up as an outpatient.
[2018-12-14] MEDS: DOCUSATE SODIUM 100 MG CAPSULE PO SCH ×2 (15:25→18:13)
[2018-12-14] MEDS ORDERED: ONDANSETRON 4 MG TAB.RAPDIS PO PRN (18:15)
--- NOTE | 2018-12-14 18:53 | XCELERA REPORT ---
[address] [address] Transthoracic Echocardiogram Report Name: SUSANA MART Age: 58 yrs Gender: Female : 1960 Patient Status: Inpatient Patient Location: [address] [place], [place] [address] Study Date: 12/11/2018 02:52 PM Height: 66 in Weight: 209 lb BSA: 2.0 m2 Procedure: A two-dimensional transthoracic echocardiogram with color flow and Doppler was performed. The study was technically difficult with many images being suboptimal in quality. The study was technically limited with all images being suboptimal in quality. Reason For Study: MR / Chest pain History: MR / Chest pain. Ordering Physician: CELE OCASIO Performed By: Geeta Lima Interpretation Summary The left ventricle is normal in size. There is moderate asymmetric left ventricular hypertrophy. 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 The left ventricular ejection fraction is within normal limits. LV EF is > than 70% Doppler measurements suggest pseudonormalized left ventricular relaxation, which is associated with grade II/IV or mild to moderate diastolic dysfunction The left ventricular wall motion is normal. There is no thrombus. The study is not agood study to assess for ASD,VD,or PFO. The right ventricle is grossly normal size. The right ventricle is not well visualized secondary to technical limitations The right atrium is normal. The LA is mild to moderately dilated. There is mild mitral annular calcification. There is systolic anterior motion of the mitral valve. There is no aortic valvular vegetation. 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 No aortic regurgitation is present. The tricuspid valve is not well visualized secondary to technical limitations There is no tricuspid stenosis. robably trace TR.Unable to calculate RVSP due to insufficient TR jet. There is no pulmonic valvular stenosis. There is a trace amount of pulmonic regurgitation The aortic root is normal size. The inferior vena cava appeared normal and decreased > 50% with respiration (RAP 5-10 mmHg) There is no pericardial effusion. MMode/2D Measurements & Calculations RVDd: 3.6 cm LVIDd: 5.2 cm FS: 46.5 % Ao root diam: 2.8 cm IVSd: 1.5 cm LVIDs: 2.8 cm EDV(Teich): 132.2 ml Ao root area: 6.2 cm2 LVPWd: 1.2 cm ESV(Teich): 29.8 ml LA dimension: 4.5 cm LVPWs: 0.07 cm EF(Teich): 77.5 % Doppler Measurements & Calculations MV E max emily: MV P1/2t max emily: Ao V2 max: LV V1 max P.2 cm/sec 83.9 cm/sec 209.3 cm/sec 75.8 mmHg MV A max emily: MV P1/2t: 58.6 msec Ao max PG: LV V1 max: 142.6 cm/sec MVA(P1/2t): 3.8 cm2 17.5 mmHg 435.3 cm/sec MV E/A: 0.57 MV dec slope: LVOT Accel Time: 0.00 sec 419.1 cm/sec2 MV dec time: 0.18 sec PA V2 max: PI end-d emily: MV P1/2t-pr_phl: 122.8 cm/sec 160.2 cm/sec 58.6 msec PA max P.0 mmHg Left Ventricle The left ventricle is normal in size. There is moderate asymmetric left ventricular hypertrophy. The echo findings are consistent with hypertrophic cardiomyopathy. 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 The left ventricular ejection fraction is within normal limits. LV EF is > than 70%. Doppler measurements suggest pseudonormalized left ventricular relaxation, which is associated with grade II/IV or mild to moderate diastolic dysfunction. The left ventricular wall motion is normal. There is no thrombus. The study is not agood study to assess for ASD,VD,or PFO. Right Ventricle The right ventricle is grossly normal size. The right ventricle is not well visualized secondary to technical limitations. Atria The right atrium is normal. The LA is mild to moderately dilated. Mitral Valve There is mild mitral annular calcification. There is systolic anterior motion of the mitral valve. There is no evidence of mitral valve prolapse. There is no vegetation seen on the mitral valve. There is no mitral valve stenosis. There is a mild amount of mitral regurgitation. Aortic Valve There is no aortic valvular vegetation. There is no aortic valve stenosis. There is moderate to severe LVOT obstruction. 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 No aortic regurgitation is present. Tricuspid Valve The tricuspid valve is not well visualized secondary to technical limitations. There is no tricuspid stenosis. robably trace TR.Unable to calculate RVSP due to insufficient TR jet. Pulmonic Valve There is no pulmonic valvular stenosis. There is a trace amount of pulmonic regurgitation. Great Vessels The aortic root is normal size. The inferior vena cava appeared normal and decreased > 50% with respiration (RAP 5-10 mmHg). Effusions There is no pericardial effusion. : CELE OCASIO > Cele Ocasio
[2018-12-14] MEDS: PROMETHAZINE HCL 25 MG TABLET PO PRN (22:23)
[2018-12-15] MEDS: OXYCODONE-ACETAMINOPHEN 5-325 MG TABLET PO PRN ×2 (05:29→09:32)
[2018-12-15 08:54] VITALS: BP 114/63
[2018-12-15] MEDS: PROMETHAZINE HCL 25 MG TABLET PO PRN (08:54)
[2018-12-15 09:09] LABS: HEMATOCRIT 34.3 % (36.0-47.0); HEMOGLOBIN 11.6 g/dL (12.0-15.5); MEAN CORPUSCULAR HEMOGLOBIN 29.9 pg (27.0-33.4); MEAN CORPUSCULAR HGB CONC 33.9 g/dL (32.0-36.0); MEAN CORPUSCULAR VOLUME 88 fl (80-97); PLATELET COUNT 299 10^3/uL (150-450); RED BLOOD COUNT 3.89 10^6/uL (3.72-5.28); RED CELL DISTRIBUTION WIDTH 13.7 % (11.5-14.0); WHITE BLOOD COUNT 4.9 10^3/uL (4.0-10.5)
[2018-12-15 09:28] LABS: POTASSIUM 4.1 mmol/L (3.6-5.0)
[2018-12-15] MEDS: DOCUSATE SODIUM 100 MG CAPSULE PO SCH (09:32)
[2018-12-15] MEDS: METOPROLOL TARTRATE 50 MG TABLET PO SCH (09:33)
--- NOTE | 2018-12-15 10:27 | Progress Note ---
Provider Note Provider Note: events noted. patient to be discharged to home today. follow up w/ cardiology and Hematology in 1-2 weeks see discharge orders and planning from yesterday
--- NOTE | 2018-12-15 12:50 | PDOC PROGRESS REPORT ---
Subjective Progress Note for:: 12/15/18 Subjective:: This is a 58 year old female admitted by the surgical service for renal hematoma versus abscess. She was complaining at one point about some central nonradiating chest pain has been going on for 5 days. She had equivocal troponin level at .06 hence hospitalist and cardiology services were consulted. 12/11: She denies any abdominal pain, chest pain or shortness of breath at the moment. 12/12: Denies chest pain or shortness of breath. She complains of mild abdominal pain and is asking if the hematoma could be taken out and evacuated. Discussed this is usually managed conservatively but will have the surgeon readdress her concerns. 12/13: Says her abdominal pain is better. Hb has been stable. 12/14: She has intermittent abdominal pain overnight and had poor oral intake. Will replace slightly low Potassium. 12/15: No acute event overnight. Denies acute complaint. Surgery has recommended non-surgical management as well. Discussed with patient about close ff-up with hematology to ff-up with labs ordered and her PCP. She verbalized understanding. Hospitalist service will sign off. Thank you for this consult. Reason For Visit: ABD WALL HEMATOMA,RIGHT KIDNEY CAPSULAR HEMATOMA Physical Exam Vital Signs: Temp Pulse Resp BP Pulse Ox 98.6 F 89 16 114/63 95 12/15/18 10:03 12/15/18 10:03 12/15/18 10:03 12/15/18 10:03 12/15/18 10:03 Intake & Output 12/14/18 12/15/18 12/16/18 06:59 06:59 06:59 Intake Total 3590 1330 Output Total 5 Balance 3590 1325 Weight 207 lb 14.334 oz General appearance: PRESENT: no acute distress, well-developed, well-nourished Head exam: PRESENT: atraumatic, normocephalic Eye exam: PRESENT: conjunctiva pink, EOMI, PERRLA. ABSENT: scleral icterus Ear exam: PRESENT: normal external ear exam Mouth exam: PRESENT: moist, tongue midline Neck exam: ABSENT: carotid bruit, JVD, lymphadenopathy, thyromegaly Respiratory exam: PRESENT: clear to auscultation jared. ABSENT: rales, rhonchi, wheezes Cardiovascular exam: PRESENT: RRR. ABSENT: diastolic murmur, rubs, systolic murmur Pulses: PRESENT: normal dorsalis pedis pul GI/Abdominal exam: PRESENT: normal bowel sounds, soft. ABSENT: distended, guarding, mass, organolmegaly, rebound, tenderness Rectal exam: PRESENT: deferred Extremities exam: PRESENT: full ROM. ABSENT: calf tenderness, clubbing, pedal edema Neurological exam: PRESENT: alert, awake, oriented to person, oriented to place, oriented to time, oriented to situation, CN II-XII grossly intact. ABSENT: motor sensory deficit Results Laboratory Results: 12/15/18 08:53 12/15/18 08:53 12/14/18 12/15/18 12/15/18 18:00 08:53 08:53 WBC 4.9 RBC 3.89 Hgb 11.6 L Hct 34.3 L MCV 88 MCH 29.9 MCHC 33.9 RDW 13.7 Plt Count 299 Potassium 3.4 L 4.1 Magnesium 1.9 12/10/18 12/10/18 12/10/18 17:32 20:30 23:14 Troponin I 0.065 0.064 0.067 12/11/18 12/11/18 04:39 10:30 Troponin I 0.066 0.053 Impressions: Chest X-Ray 12/10/18 17:22 IMPRESSION: 1. 10 mm right pulmonary nodule. Consider CT for further evaluation. 2. Cardiomegaly without pulmonary edema. Abdomen/Pelvis CT 12/10/18 20:16 IMPRESSION: 1. Perinephric high density as detailed above suggestive of subcapsular hematoma of uncertain etiology. There is associated diffuse perinephric stranding with trace high density contents along the course of the renal capsule and minimally along the RIGHT paracolic gutter compatible with trace retroperitoneal hemorrhage. 2. Large volume of RIGHT anterior lateral subcutaneous fat diffuse stranding and more focal high density measuring up to 4.7 x 2.0 cm in thickness with high density components compatible with hematoma. 3. Diagnostic pulmonary angiography without findings to suggest pulmonary arterial embolus. 4. The lungs are clear without focal opacity, pleural effusion or pneumothorax. 5. Bilateral apical centrilobular lucency, a nonspecific finding however raising the possibility of early or mild developing emphysema. 6. Enlargement of the main pulmonary artery measuring up to 3.5 cm concerning for pulmonary arterial hypertension. 7. Indeterminate 12 mm LEFT renal cyst. 8. Focal area of nonspecific increased density within the proximal pancreas, may be within normal limits for the patient. However the possibility of small hematoma, considered less likely, cannot be completely excluded. This may be further evaluated on follow-up imaging. There is no associated peripancreatic stranding. Critical findings were discussed with the patient's nurse Jael 12/10/2018 2046 hours. TECHNICAL DOCUMENTATION: Quality ID # 436: Final reports with documentation of one or more dose reduction techniques (e.g., Automated exposure control, adjustment of the mA and/or kV according to patient size, use of iterative reconstruction technique) copyright 2010 [employer]- All Rights Reserved Chest/Abdomen CTA 12/10/18 20:38 IMPRESSION: 1. Perinephric high density as detailed above suggestive of subcapsular hematoma of uncertain etiology. There is associated diffuse perinephric stranding with trace high density contents along the course of the renal capsule and minimally along the RIGHT paracolic gutter compatible with trace retroperitoneal hemorrhage. 2. Large volume of RIGHT anterior lateral subcutaneous fat diffuse stranding and more focal high density measuring up to 4.7 x 2.0 cm in thickness with high density components compatible with hematoma. 3. Diagnostic pulmonary angiography without findings to suggest pulmonary arterial embolus. 4. The lungs are clear without focal opacity, pleural effusion or pneumothorax. 5. Bilateral apical centrilobular lucency, a nonspecific finding however raising the possibility of early or mild developing emphysema. 6. Enlargement of the main pulmonary artery measuring up to 3.5 cm concerning for pulmonary arterial hypertension. 7. Indeterminate 12 mm LEFT renal cyst. 8. Focal area of nonspecific increased density within the proximal pancreas, may be within normal limits for the patient. However the possibility of small hematoma, considered less likely, cannot be completely excluded. This may be further evaluated on follow-up imaging. There is no associated peripancreatic stranding. Critical findings were discussed with the patient's nurse Jael 12/10/2018 2046 hours. TECHNICAL DOCUMENTATION: Quality ID # 436: Final reports with documentation of one or more dose reduction techniques (e.g., Automated exposure control, adjustment of the mA and/or kV according to patient size, use of iterative reconstruction technique) copyright 2010 [employer]- All Rights Reserved Assessment and Plan - Diagnosis (1) Abdominal wall hematoma Qualifiers: Encounter type: subsequent encounter Qualified Code(s): S30.1XXD - Contusion of abdominal wall, subsequent encounter Is this a current diagnosis for this admission?: Yes Plan: Surgery following. 12/13: Unlikely to be abscess. Recommend discontinuing IV antibiotics. 12/14: Being managed conservatively. (2) Renal hematoma Qualifiers: Encounter type: initial encounter Laterality: right Qualified Code(s): S37.011A - Minor contusion of right kidney, initial encounter Is this a current diagnosis for this admission?: Yes Plan: No renal mass on imaging. Consulted and discussed with hematology. Work-up sent and will be followed up outpatient with Dr. Denise. (3) Elevated troponin Is this a current diagnosis for this admission?: Yes Plan: EKG does not show any acute changes. Patient is currently chest pain-free. Troponins have been flat at 0.06. Cardiology recommended possible outpatient stress testing. (4) IHSS (idiopathic hypertrophic subaortic stenosis) Is this a current diagnosis for this admission?: Yes - Time Time Spent with patient: 15-24 minutes
--- NOTE | 2018-12-15 20:38 | Progress Note ---
Provider Note Provider Note: CARDIOLOGY PROGRESS NOTE by Dr. Cele Santiago on 12/15/2018. SUBJECTIVE: The patient states that prior pain in the right abdominal wall hematoma is much improved. She has no chest pain or discomfort on walking across the room. There is no shortness of breath. There is no arrhythmia seen on the monitor. There is no leg edema. There is no dizziness, palpitations, or syncope. There is no PND or orthopnea. PHYSICAL EXAMINATION: The patient is moderately obese. In no acute distress. She is well-groomed. Selected Entries 12/15/18 12/15/18 12/15/18 09:59 10:00 10:03 Temperature 98.6 F Pulse Rate 89 Respiratory 16 Rate Blood Pressure 114/63 [Right Upper Arm] O2 Sat by Pulse 95 Oximetry Oxygen Delivery Room Air Method ( includes room air) Fraction of 21 Inspired Oxygen (FIO2) HEAD: Is atraumatic normocephalic. EYES: Pupils equal round regular reactive to light accommodation. Extraocular movements are normal. There is no conjunctival pallor. There is no scleral icterus. EARS: Tympanic membranes are intact. External auditory canals are clear. nose: There is no deviated nasal septum. There is no inflammation of the nasal mucous membranes. MOUTH: Mucous membranes of mouth are moist tongue is moist there is no ulcers there is no bleeding from the gums. The patient oral cavity modified Anisha Domi classification is class IV. THROAT: There is no redness of the oropharynx. There is no exudates. SKIN: There is no skin lesions or skin rashes. There is no particular ecchymosis. NECK: Is supple. There is no JVD. Carotids equal there is no bruit there is faint murmur from the aortic area transmitted over both carotids. There is no carotid delay. There is no lymphadenopathy. There is no goiter. There is no accessory muscle respiration use. Trachea central. LUNGS: Is clear to auscultation percussion. There is no rhonchi rales or wheezing. On no palpation there is some mild tenderness of the sternal area in the front of the chest. HEART: S1-S2 is heard. There is no S3 gallop. There is a questionable S4 gallop present. There is systolic murmur the aortic area with faint radiation to both carotids. There is also murmur of mitral regurgitation. In the left apex with radiation to the left scapular area and also to the left axilla. Also the systolic murmur the left sternal border which increases in intensity with Valsalva. There is no rub. S1 is of normal intensity. ABDOMEN: Is obese. Nontender. There is no paraspinal megaly. There is some degree of discomfort on pressing the right lower quadrant of the abdomen. There is no flank tenderness. Bowel sounds are well heard. EXTREMITIES: Femorals are deep femorals are diminished. Leg pulses slightly diminished. There is no pedal edema. There is no DVT or cellulitis. There is no sinus or clubbing. There is no calf tenderness. PULL WORKER: The patient is conscious awake alert oriented x3 with no focal deficits. PSYCHIATRIC: The patient judgment and insight are intact her affect is normal. Labs- All tests 24 hr 12/15/18 12/15/18 08:53 08:53 WBC 4.9 RBC 3.89 Hgb 11.6 L Hct 34.3 L MCV 88 MCH 29.9 MCHC 33.9 RDW 13.7 Plt Count 299 Potassium 4.1 Magnesium 1.9 Chest X-Ray 12/10/18 17:22 IMPRESSION: 1. 10 mm right pulmonary nodule. Consider CT for further evaluation. 2. Cardiomegaly without pulmonary edema. Abdomen/Pelvis CT 12/10/18 20:16 IMPRESSION: 1. Perinephric high density as detailed above suggestive of subcapsular hematoma of uncertain etiology. There is associated diffuse perinephric stranding with trace high density contents along the course of the renal capsule and minimally along the RIGHT paracolic gutter compatible with trace retroperitoneal hemorrhage. 2. Large volume of RIGHT anterior lateral subcutaneous fat diffuse stranding and more focal high density measuring up to 4.7 x 2.0 cm in thickness with high density components compatible with hematoma. 3. Diagnostic pulmonary angiography without findings to suggest pulmonary arterial embolus. 4. The lungs are clear without focal opacity, pleural effusion or pneumothorax. 5. Bilateral apical centrilobular lucency, a nonspecific finding however raising the possibility of early or mild developing emphysema. 6. Enlargement of the main pulmonary artery measuring up to 3.5 cm concerning for pulmonary arterial hypertension. 7. Indeterminate 12 mm LEFT renal cyst. 8. Focal area of nonspecific increased density within the proximal pancreas, may be within normal limits for the patient. However the possibility of small hematoma, considered less likely, cannot be completely excluded. This may be further evaluated on follow-up imaging. There is no associated peripancreatic stranding. Critical findings were discussed with the patient's nurse Jael 12/10/2018 2046 hours. TECHNICAL DOCUMENTATION: Quality ID # 436: Final reports with documentation of one or more dose reduction techniques (e.g., Automated exposure control, adjustment of the mA and/or kV according to patient size, use of iterative reconstruction technique) copyright 2011 [employer]- All Rights Reserved Chest/Abdomen CTA 12/10/18 20:38 IMPRESSION: 1. Perinephric high density as detailed above suggestive of subcapsular hematoma of uncertain etiology. There is associated diffuse perinephric stranding with trace high density contents along the course of the renal capsule and minimally along the RIGHT paracolic gutter compatible with trace retroperitoneal hemorrhage. 2. Large volume of RIGHT anterior lateral subcutaneous fat diffuse stranding and more focal high density measuring up to 4.7 x 2.0 cm in thickness with high density components compatible with hematoma. 3. Diagnostic pulmonary angiography without findings to suggest pulmonary arterial embolus. 4. The lungs are clear without focal opacity, pleural effusion or pneumothorax. 5. Bilateral apical centrilobular lucency, a nonspecific finding however raising the possibility of early or mild developing emphysema. 6. Enlargement of the main pulmonary artery measuring up to 3.5 cm concerning for pulmonary arterial hypertension. 7. Indeterminate 12 mm LEFT renal cyst. 8. Focal area of nonspecific increased density within the proximal pancreas, may be within normal limits for the patient. However the possibility of small hematoma, considered less likely, cannot be completely excluded. This may be further evaluated on follow-up imaging. There is no associated peripancreatic stranding. Critical findings were discussed with the patient's nurse Jael 12/10/2018 2046 hours. TECHNICAL DOCUMENTATION: Quality ID # 436: Final reports with documentation of one or more dose reduction techniques (e.g., Automated exposure control, adjustment of the mA and/or kV according to patient size, use of iterative reconstruction technique) IMPRESSION/RECOMMENDATION 1. IHSS [HOC M:]. Patient's symptoms of exertional chest pressure improved with the beta-blockers. The patient tolerating Lopressor 75 mg p.o. twice daily. Avoid diuretics. 2. Hypertension: Blood pressure well controlled. 3. History of asthma/history of tobacco abuse. Tobacco cessation counseling given. At present there is no acute exacerbation of asthma or acute asthmatic attack. 4. History of right abdominal wall hematoma versus abscess versus another hematoma intra-abdominal.: The patient is being managed medically. 5. Hypokalemia: Resolved. The patient's potassium was normal after repla cement. 6. History of tobacco abuse: Tobacco cessation counseling given. 7. Symptoms suggestive of sleep apnea. Will recommend empiric BiPAP therapy in the hospital. Patient recommended to have a sleep study as an outpatient Medications reviewed management plan discussed with the surgical list. Medical decision making is of moderate complexity. Cardiac status is stable for the patient to be discharged from cardiac standpoint. We will follow the patient as an outpatient. Will sign off.
[2018-12-16 17:36] LABS: FACTOR IX ACTIVITY 118 % (60-177); FACTOR XII ACTIVITY 96 % (50-150)
[2018-12-16 18:36] LABS: VON WILLEBRAND FACTOR ACTIVITY 128 % (50-200)
[2018-12-17 06:23] LABS: FACTOR VII ACTIVITY 61 % (51-186); VON WILLEBRAND FACTOR ANTIGEN 192 % (50-200)
== END 2018-12-15 11:00 | disposition home or self-care (01) | DRG 556 ==
LOC: ER 16:29 → INTOOBSV 23:12 → EH 23:12 → 4N 12-11 01:38 → OBSVTOIN 12-12 12:57
PROVIDERS: ADMIT Surgery; ATTEND Surgery
DX: M79.81 Nontraumatic hematoma of soft tissue (principal); I42.1 Obstructive hypertrophic cardiomyopathy; R79.89 Other specified abnormal findings of blood chemistry; I10 Essential (primary) hypertension; J45.909 Unspecified asthma, uncomplicated; E87.6 Hypokalemia; E66.9 Obesity, unspecified; F17.210 Nicotine dependence, cigarettes, uncomplicated; G43.909 Migraine, unspecified, not intractable, without status migrainosus; M19.90 Unspecified osteoarthritis, unspecified site; Z88.0 Allergy status to penicillin; Z88.1 Allergy status to other antibiotic agents; Z88.6 Allergy status to analgesic agent; Z90.710 Acquired absence of both cervix and uterus; Z79.52 Long term (current) use of systemic steroids
CPT/HCPCS: 36415; 71046; 71275; 74177; 80048; 80053; 80202; 80307; 81001; 82150; 82565; 83605; 83690; 83735; 84132; 84484; 85025; 85027; 85230; 85240; 85245; 85246; 85247; 85250; 85280; 85610; 85652; 85730; 86140; 87040; 87086; 93005; 93010; 93306; 93971; 96361; 96374; 96375; 99285; G0378; J0692; J2270; J2405; J2550; J2765; J3370; J3490; J7030; J7060; J7120; S0164

== ENCOUNTER 2019-01-05 18:06 | Inpatient (IN) | payer OTHER ==
[~2019-01-05 18:06] MED LIST: ROCURONIUM BROMIDE INJ 50 MG/5 ML VIAL IV ONE
[2019-01-05] MEDS ORDERED: SODIUM BICARBONATE 8.4% INJ 50 MEQ/50 ML DISP.SYRIN IV ONE ×2 (18:15→19:07)
[2019-01-05] MEDS ORDERED: SODIUM BICARBONATE 8.4% INJ 50 MEQ/50 ML DISP.SYRIN ONE ×2 (18:16→19:24)
[2019-01-05] MEDS ORDERED: RINGERS SOLUTION,LACTATED 1,000 ML IV ONE (18:26)
--- NOTE | 2019-01-05 18:35 | ER Document Report ---
Entered by LUANA ERICKSON SCRIBE 01/05/19 1810 Acting as scribe for:STANLEY GARCIA MD ED General - General Stated Complaint: ALTERED MENTAL STATUS Mode of Arrival: Medic Information source: Emergency Med Personnel, [facility] Records Cannot obtain history due to: Altered mental status Notes: 58 year old female that presents to the emergency department today unresponsive with EMS. EMS reports when they arrived on scene the patient was unresponsive with a BGL of 35, a lactate of 12.9, and a heart rate of 218. EMS placed an IO in the right tibia. EMS reports that the patient did withdraw with IO placement and flushing. EMS reports that family on scene stated the patient has been "like this for the last x6 months, other than the breathing issue". Patient was seen here on 12/12/2018 for vomiting with associated chest pain. Patient was admitted for [address] scan revealed a right sided retroperitoneal hematoma and probable pulmonary hypertension. Initially the patient is a respiratory rate of 40, breathing extremely deep, ketone odor on breath. She was given 50 mEq of sodium bicarb through the IO empirically while waiting for lab work. She did seem to improve her mental status after that and was able to whisper answers to some questions but it was very difficult to understand what she was saying. An IV was obtained in her right antecubital fossa, and then one in her left dorsal hand. She is receiving additional IV fluids. A Pleitez catheter was placed and very dark urine began to flow. The family arrived and reports that the patient has been vomiting whenever she eats for the past 5 days. She is not been able to keep food down. She has not been sleeping. TRAVEL OUTSIDE OF THE [place] IN LAST 30 DAYS: No - Related Data Allergies/Adverse Reactions: amoxicillin [Amoxicillin] Allergy (Verified 12/10/18 16:30) ibuprofen Allergy (Verified 12/10/18 16:30) Penicillins Allergy (Verified 12/10/18 16:30) prednisone Allergy (Verified 12/13/18 09:54) Past Medical History - General Information source: Emergency Med Personnel, [facility] Records Cannot obtain history due to: Altered mental status - Social History Smoking Status: Current Every Day Smoker Cigarette use (# per day): Yes Chew tobacco use (# tins/day): No Smoking Education Provided: No Frequency of alcohol use: None Drug Abuse: None Lives with: Family Family History: Reviewed & Not Pertinent - Past Medical History Cardiac Medical History: Reports: Hx Hypertension Pulmonary Medical History: Reports: Hx Asthma Neurological Medical History: Reports: Hx Migraine Renal/ Medical History: Denies: Hx Peritoneal Dialysis Musculoskeletal Medical History: Reports Hx Arthritis Past Surgical History: Reports: Hx Hysterectomy - Immunizations Hx Diphtheria, Pertussis, Tetanus Vaccination: Yes Review of Systems - Review of Systems -: Yes ROS unobtainable due to patient's medical condition Physical Exam - Vital signs Vitals: Resp 28 H 01/05/19 18:08 - Notes Notes: Physical Exam: General: Unresponsive. IO in right tibia. Ketone odor on breath. HEENT: Normocephalic. Atraumatic. PERRL. Extraocular movements intact. Oropharynx clear. Dry mucous membranes. Poor dentition throughout. Lumps on forehead. Neck: Supple. Non-tender. Respiratory: Severe respiratory distress. Tachypneic, breathing 40 times a minute, very deep breaths. Cardiovascular: Tachycardic around 215, regular rhythm. Abdominal: Obese with striae. Non-tender. No distension. Normal Bowel Sounds. Back: No gross abnormalities. Extremities: Moves all four extremities. Upper extremities: Normal inspection. Normal ROM. Lower extremities: IO in right tibia. 2-3+ pitting edema, left > right. Normal ROM. Neurological: Unresponsive Skin: Warm. Dry. Normal color. Course - Re-evaluation Re-evalutation: 01/05/19 19:01 While the central line was being placed by the general surgeon, the patient's oxygen saturation dropped precipitously into the 70s. Her face was covered she was snoring, and I found the nasal cannula was not being maintained in her nose. Her heart rate dropped into the 70s. A nasal trumpet was placed in the right nostril, a nonrebreather mask was placed on her face and held there with 15 L O2, her heart rate came back up to 180, her pulse ox came up to 95%. 01/05/19 19:28 The patient's pH on venous gas is 7.04 after she had received 1 amp of sodium bicarb and IV fluids. 01/05/19 19:36 Patient got a second amp of sodium bicarb. She was pulled up in the bed and brought up to about 45 degree sitting position to get her large abdomen down so she could breathe more easily. Following these maneuvers, her heart rate dropped to 120 sinus tach, and her blood pressure came up from the 80s to 101 systolic. - Vital Signs Vital signs: Temp Pulse Resp BP Pulse Ox 99.9 F 121 H 22 H 92/53 L 97 01/06/19 01:54 01/05/19 23:53 01/05/19 23:53 01/05/19 22:08 01/05/19 23:53 - Laboratory Result Diagrams: 01/05/19 18:30 01/05/19 18:39 Laboratory results interpreted by me: 01/05/19 01/05/19 01/05/19 18:00 18:14 18:14 WBC RBC Hgb Hct MCHC RDW Plt Count Lymph % (Auto) [place] % (Auto) Absolute Neuts (auto) Absolute Monos (auto) Seg Neutrophils % Carbonic Acid 1.47 H ABG pH 7.18 L* ABG pCO2 49.0 H ABG pO2 110.8 H ABG HCO3 17.7 L ABG Total CO2 19.2 L VBG pH VBG HCO3 Sodium Chloride Carbon Dioxide Anion Gap Lactic Acid 13.0 H Total Bilirubin Direct Bilirubin AST Creatine Kinase CK-MB (CK-2) 11.60 H NT-Pro-B Natriuret Pep Urine Protein Urine Ketones Urine Bilirubin Urine Urobilinogen 01/05/19 01/05/19 01/05/19 18:14 18:30 18:39 WBC 14.6 H RBC 3.64 L Hgb 10.5 L Hct 33.1 L MCHC 31.6 L RDW 16.9 H Plt Count 492 H Lymph % (Auto) 7.[address] [place] % (Auto) 14.1 H Absolute Neuts (auto) 11.4 H Absolute Monos (auto) 2.1 H Seg Neutrophils % 78.4 H Carbonic Acid ABG pH ABG pCO2 ABG pO2 ABG HCO3 ABG Total CO2 VBG pH VBG HCO3 Sodium 134.4 L Chloride 95 L Carbon Dioxide 12 L Anion Gap 27 H Lactic Acid Total Bilirubin 1.4 H Direct Bilirubin 1.0 H AST 94 H Creatine Kinase 321 H CK-MB (CK-2) NT-Pro-B Natriuret Pep 61563 H Urine Protein Urine Ketones Urine Bilirubin Urine Urobilinogen 01/05/19 01/05/19 18:39 18:39 WBC RBC Hgb Hct MCHC RDW Plt Count Lymph % (Auto) [place] % (Auto) Absolute Neuts (auto) Absolute Monos (auto) Seg Neutrophils % Carbonic Acid ABG pH ABG pCO2 ABG pO2 ABG HCO3 ABG Total CO2 VBG pH 7.04 L* VBG HCO3 10.6 L Sodium Chloride Carbon Dioxide Anion Gap Lactic Acid Total Bilirubin Direct Bilirubin AST Creatine Kinase CK-MB (CK-2) NT-Pro-B Natriuret Pep Urine Protein 100 H Urine Ketones 80 H Urine Bilirubin SMALL H Urine Urobilinogen 4.0 H - Diagnostic Test Radiology reviewed: Image reviewed, Reports reviewed - Chest x-ray shows left basilar and perihilar consolidation. No pneumothorax. Central line is in good position. - EKG Interpretation by Me EKG shows normal: [place], Intervals, ST-T Waves. abnormal: QRS Complexes - Rate related repolarization abnormality Rate: Tachycardia - 210 Rhythm: SVT, Torsades - Consults Dr. Richardson Time consulted: 19:29 Consulted provider: will come to ER Critical Care Note - Critical Care Note Total time excluding time spent on procedures (mins): 75 Discharge - Discharge Clinical Impression: Pneumonia, Tachycardia, Lactic acid acidosis, Hypoglycemia, Hypotension, Sepsis Condition: Critical Disposition: ADMITTED INPATIENT Admitting Provider: Debra (Hospitalist) Unit Admitted: ICU Scribe Attestation: 01/05/19 18:35 I personally performed the services described in the documentation, reviewed and edited the documentation which was dictated to the scribe in my presence, and it accurately records my words and actions. I personally performed the services described in the documentation, reviewed and edited the documentation which was dictated to the scribe in my presence, and it accurately records my words and actions.
[2019-01-05] MEDS ORDERED: LIDOCAINE 1% INJ-PF (10 MG/ML) 30 ML SDV ONE (18:43)
[2019-01-05] MEDS ORDERED: LIDOCAINE 1% INJ (10 MG/ML) 10 ML MDV INJ ONE (18:44)
[2019-01-05 19:00] LABS: VENOUS BLOOD BASE EXCESS -19.3 mmol/L; VENOUS BLOOD HCO3 10.6 mmol/L (20-32); VENOUS BLOOD PCO2 40.6 mmHg (35-63)
[2019-01-05 19:03] LABS: ABSOLUTE LYMPHOCYTES (AUTO) 1.1 10^3/uL (0.5-4.7); ABSOLUTE MONOCYTES (AUTO) 2.1 10^3/uL (0.1-1.4); ABSOLUTE NEUT (AUTO) 11.4 10^3/uL (1.7-8.2); BASOPHILS % (AUTO) 0.1 % (0-2); EOSINOPHILS % (AUTO) 0.1 % (0-6); HEMATOCRIT 33.1 % (36.0-47.0); HEMOGLOBIN 10.5 g/dL (12.0-15.5); LYMPHOCYTES % (AUTO) 7.3 % (13-45); MEAN CORPUSCULAR HEMOGLOBIN 28.8 pg (27.0-33.4); MEAN CORPUSCULAR HGB CONC 31.6 g/dL (32.0-36.0); MEAN CORPUSCULAR VOLUME 91 fl (80-97); MONOCYTES % (AUTO) 14.1 % (3-13); PLATELET COUNT 492 10^3/uL (150-450); RED BLOOD COUNT 3.64 10^6/uL (3.72-5.28); RED CELL DISTRIBUTION WIDTH 16.9 % (11.5-14.0); SEGMENTED NEUTROPHILS % (AUTO) 78.4 % (42-78); TOTAL CELLS COUNTED % (AUTO) 100 %; WHITE BLOOD COUNT 14.6 10^3/uL (4.0-10.5)
[2019-01-05 19:06] LABS: VENOUS BLOOD PH 7.04 (7.30-7.42)
[2019-01-05] MEDS ORDERED: LEVOFLOXACIN 750 MG/D5W RTU 750 MG/150 ML RTUPB IV ONE (19:06)
[2019-01-05 19:08] LABS: ALBUMIN 3.5 g/dL (3.5-5.0); ALKALINE PHOSPHATASE 92 U/L (38-126); ASPARTATE AMINO TRANSFERASE 94 U/L (14-36); BILIRUBIN,TOTAL 1.4 mg/dL (0.2-1.3); BLOOD UREA NITROGEN 11 mg/dL (7-20); CALCIUM 9.4 mg/dL (8.4-10.2); CREATINE KINASE 321 U/L (30-135); GLUCOSE 86 mg/dL (75-110); POTASSIUM 4.7 mmol/L (3.6-5.0); TOTAL PROTEIN 6.9 g/dL (6.3-8.2)
[2019-01-05] MEDS ORDERED: DEXTROSE 5%-WATER 1000 ML 1,000 ML with SODIUM BICARBONATE 150 MEQ IV PRN ×4 (19:08→22:00)
[2019-01-05 19:12] LABS: APPEARANCE,URINE SLIGHTLY-CLOUDY; BILIRUBIN,URINE SMALL (NEGATIVE); COLOR,URINE AMBER; GLUCOSE, URINE NEGATIVE (NEGATIVE); KETONES,URINE 80 mg/dL (NEGATIVE); LEUKOCYTE ESTERASE,URINE NEGATIVE (NEGATIVE); NITRITE,URINE NEGATIVE (NEGATIVE); PROTEIN,URINE 100 mg/dL (NEGATIVE); URINE SPECIFIC GRAVITY 1.019
--- NOTE | 2019-01-05 19:12 | PDOC CONSULTATION ---
Consultation Consult Date: 01/05/19 Provider Consulted: JOHN CAIN Consult reason:: Need of IV access History of Present Illness History of Present Illness: SUSANA MART is a 58 year old female, found unconscious at home, elevated heart rate about 220, and respiratory distress, in need to IV access for administration of medications or drugs. Past Medical History Cardiac Medical History: Reports: Hypertension Pulmonary Medical History: Reports: Asthma Neurological Medical History: Reports: Migraine Musculoskeltal Medical History: Reports: Arthritis Past Surgical History Past Surgical History: Reports: Hysterectomy Social History Smoking Status: Unknown if Ever Smoked Drugs: None Family History Family History: Reviewed & Not Pertinent Parental Family History Reviewed: No Children Family History Reviewed: No Sibling(s) Family History Reviewed.: No Medication/Allergy Home Medications: Docusate Sodium [Colace 100 mg Capsule] 100 mg PO BID capsule 12/14/18 Docusate Sodium [Colace 100 mg Capsule] 100 mg PO BID #60 capsule 12/14/18 Tramadol HCl/Acetaminophen [Tramadol-Acetaminophn 37.5-325] 1 each PO Q6 #30 tablet 12/14/18 Allergies/Adverse Reactions: amoxicillin [Amoxicillin] Allergy (Verified 12/10/18 16:30) ibuprofen Allergy (Verified 12/10/18 16:30) Penicillins Allergy (Verified 12/10/18 16:30) prednisone Allergy (Verified 12/13/18 09:54) Physical Exam Vital Signs: Temp Pulse Resp BP Pulse Ox 100.0 F 213 H 30 H 124/84 90 L 01/05/19 18:45 01/05/19 18:19 01/05/19 18:45 01/05/19 18:45 01/05/19 18:45 Intake & Output 01/04/19 01/05/19 01/06/19 06:59 06:59 06:59 Weight 107.4 kg General appearance: PRESENT: severe distress, other - Sweaty, unresponsive, and tachypneic Head exam: PRESENT: normocephalic, other - Presents with 2 heart bulges in the upper forehead Eye exam: PRESENT: other - Not examined Mouth exam: PRESENT: moist, neck supple Respiratory exam: PRESENT: decreased breath sounds, retraction Cardiovascular exam: PRESENT: tachycardia GI/Abdominal exam: PRESENT: distended, soft Extremities exam: PRESENT: other - Moves both upper extremities without purpose; presence of hyaline in the right anterior tibia Results Laboratory Results: 01/05/19 18:30 01/05/19 01/05/19 01/05/19 18:24 18:24 18:30 WBC Cancelled 14.6 H RBC Cancelled 3.64 L Hgb Cancelled 10.5 L Hct Cancelled 33.1 L MCV Cancelled 91 MCH Cancelled 28.8 MCHC Cancelled 31.6 L RDW Cancelled 16.9 H Plt Count Cancelled 492 H Seg Neutrophils % Cancelled 78.4 H VBG pH VBG pCO2 VBG HCO3 VBG Base Excess Sodium Cancelled Potassium Cancelled Chloride Cancelled Carbon Dioxide Cancelled Anion Gap Cancelled BUN Cancelled Creatinine Cancelled Est GFR ( Amer) Cancelled Est GFR (Non-Af Amer) Cancelled Glucose Cancelled Calcium Cancelled Magnesium Cancelled Total Bilirubin Cancelled AST Cancelled Alkaline Phosphatase Cancelled Total Protein Cancelled Albumin Cancelled 01/05/19 18:39 WBC RBC Hgb Hct MCV MCH MCHC RDW Plt Count Seg Neutrophils % VBG pH 7.04 L* VBG pCO2 40.6 VBG HCO3 10.6 L VBG Base Excess -19.3 Sodium Potassium Chloride Carbon Dioxide Anion Gap BUN Creatinine Est GFR ( Amer) Est GFR (Non-Af Amer) Glucose Calcium Magnesium Total Bilirubin AST Alkaline Phosphatase Total Protein Albumin 01/05/19 18:24 Creatine Kinase Cancelled Assessment & Plan - Diagnosis (1) Need for intravenous access Is this a current diagnosis for this admission?: Yes - Plan Summary Plan Summary: Assessment: Unresponsive patient with tachycardia respiratory distress Needle IV axis Plan: Placement of central venous line emergently in the emergency room
[2019-01-05 19:14] LABS: CARBON DIOXIDE 12 mmol/L (22-30); CHLORIDE 95 mmol/L (98-107)
--- NOTE | 2019-01-05 19:15 | Operative Report ---
Operative Report DATE OF SURGERY: 01/05/19 PREOPERATIVE DIAGNOSIS: Need of IV access POSTOPERATIVE DIAGNOSIS: Same OPERATION: Placement of left subclavian vein central venous line SURGEON: JOHN CAIN ANESTHESIA: Local - 20 mL's of 1% lidocaine without epinephrine TISSUE REMOVED OR ALTERED: Not applicable COMPLICATIONS: None ESTIMATED BLOOD LOSS: Less than 5 mL INTRAOPERATIVE FINDINGS: As above PROCEDURE: The procedure was done at bedside in the emergency department: The patient was placed in a supine position, the patient neck and chest were prepped and draped in the usual fashion. The midportion of the left clavicle and just below it was infiltrated with lidocaine, a 16-gauge needle was then used to cannulate the left subclavian vein without difficulty with good blood return; a guidewire was inserted through the needle into the subclavian vein vein without difficulty the needle was removed. The insertion point of the guidewire was enlarged with a #11 blade and a tissue dilator which was then removed. A triple-lumen catheter was inserted without difficulty over the guidewire into the left subclavian vein without difficulty up to 18 cm, the guidewire was removed. Each port was aspirated and flushed with normal saline without difficulty. The catheter was secured to the skin with 3-0 nylon sutures and sterile dressing applied. The patient tolerated the procedure well and portable chest-ray was obtained to confirm good position of the line.
[2019-01-05 19:18] LABS: CREATINE KINASE MB 11.6 ng/mL (<4.55)
[2019-01-05 19:18] LABS: ANION GAP 27 (5-19)
[2019-01-05 19:23] LABS: TROPONIN I 0.058 ng/mL
[2019-01-05] MEDS ORDERED: DEXTROSE 50%-WATER 25 GM/50 ML DISP.SYRIN IV ONE (19:24)
--- NOTE | 2019-01-05 19:27 | RADIOLOGY REPORT (SQ) ---
EXAM DESCRIPTION: CHEST SINGLE VIEW COMPLETED DATE/TIME: 01/05/2019 7:09 pm REASON FOR STUDY: dka COMPARISON: 12/10/2018 TECHNIQUE: Single frontal radiographic view of the chest acquired. NUMBER OF VIEWS: One view. LIMITATIONS: None. FINDINGS: LUNGS AND PLEURA: No pneumothorax. Left perihilar and basilar consolidation. Probable le ft pleural effusion. MEDIASTINUM AND HILAR STRUCTURES: Stable. HEART AND VASCULAR STRUCTURES: Stable. BONES: No acute findings. HARDWARE: Left subclavian central venous catheter tip overlies the SVC near the level of the merrick. OTHER: No other significant finding. IMPRESSION: No pneumothorax. Left perihilar and basilar consolidation. Probable left pleural effus ion.Left subclavian central venous catheter tip overlies the SVC near the level of the merrick. TECHNICAL DOCUMENTATION: JOB ID: [id number] [id number] 2010 [employer]- All Rights Reserved Reading location - IP/workstation name: [email or web address]
[2019-01-05 19:46] LABS: URINE AMPHETAMINES SCREEN NEGATIVE; URINE BARBITURATES SCREEN UNCONFIRMED POSITIVE; URINE BENZODIAZEPINES SCREEN NEGATIVE; URINE COCAINE SCREEN NEGATIVE; URINE MARIJUANA (THC) SCREEN NEGATIVE; URINE METHADONE SCREEN NEGATIVE; URINE PHENCYCLIDINE SCREEN NEGATIVE
[2019-01-05] MEDS ORDERED: PROMETHAZINE HCL INJ 25 MG/1 ML VIAL IV PRN (19:51)
[2019-01-05] MEDS ORDERED: LEVALBUTEROL HCL NEB 0.63 MG/3 ML AMPUL NEB PRN (19:51)
[2019-01-05] MEDS ORDERED: INSULIN REG, HUMAN 100 UNIT/ML 3 ML VIAL (PYX) SUBCUT PRN (20:05)
[2019-01-05] MEDS ORDERED: GLUCAGON,HUMAN RECOMB 1 MG INJ IM PRN (20:05)
[2019-01-05] MEDS ORDERED: DEXTROSE 40% GEL 15 GM TUBE PO PRN ×2 (20:05)
[2019-01-05] MEDS ORDERED: ACETAMINOPHEN 325 MG TABLET PO PRN (20:05)
[2019-01-05] MEDS ORDERED: MORPHINE SULFATE 10 MG/ML INJ IV PRN ×3 (20:05→23:53)
[2019-01-05] MEDS ORDERED: DEXTROSE 50%-WATER 25 GM/50 ML DISP.SYRIN IV PRN ×2 (20:05)
[2019-01-05] MEDS ORDERED: VANCOMYCIN HCL INJ 1000 MG VIAL IV SCH (20:15)
[2019-01-05 20:18] LABS: ARTERIAL BLOOD BASE EXCESS -10.4 mmol/L; ARTERIAL BLOOD H2CO3 1.47 mmol/L (1.05-1.35); ARTERIAL BLOOD HCO3 17.7 mmol/L (20-24); ARTERIAL BLOOD O2 SATURATION 96.8 % (94-98); ARTERIAL BLOOD PO2 110.8 mmHg (80-100); ARTERIAL BLOOD TOTAL CO2 19.2 mmol/L (21-25)
[2019-01-05 20:19] LABS: ARTERIAL BLOOD FIO2 100%
[2019-01-05 20:23] LABS: ARTERIAL BLOOD PH 7.18 (7.35-7.45)
[2019-01-05] MEDS: DEXTROSE 5%-LACTATED RINGERS 1,000 ML IV PRN (20:54)
[2019-01-05] MEDS: ACETAMINOPHEN 650 MG SUPP.RECT PR PRN (21:00)
[2019-01-05] MEDS ORDERED: METHYLPREDNISOLONE INJ 125 MG/2 ML SDV IV ONE (21:03)
[2019-01-05] MEDS ORDERED: NICOTINE 21 MG/24 HR PATCH.TD24 TD PRN (21:03)
[2019-01-05] MEDS ORDERED: METOCLOPRAMIDE HCL INJ/PF 10 MG/2 ML SDV IV SCH (22:00)
[2019-01-05] MEDS ORDERED: MEROPENEM 1 GM VIAL IV SCH (22:00)
[2019-01-05] MEDS ORDERED: PROPOFOL INJ 200 MG/20 ML VIAL IV ONE (22:29)
[2019-01-05] MEDS: MEROPENEM 1 GM in NORMAL SALINE 50 ML IV SCH (23:21)
[2019-01-05] MEDS: HEPARIN SOD (PORCINE) 5,000 UNIT/ML 1 ML VIAL SUBCUT SCH (23:24)
[2019-01-05] MEDS: FAMOTIDINE INJ/PF 20 MG/2 ML SDV IV SCH (23:25)
[2019-01-05] MEDS: VANCOMYCIN HCL 1,500 MG in DEXTROSE 5%-WATER 250 ML IV SCH (23:26)
--- NOTE | 2019-01-05 23:32 | RADIOLOGY REPORT (SQ) ---
EXAM DESCRIPTION: XR CHEST 1 VIEW COMPLETED DATE/TME: 01/05/2019 00:00 CLINICAL HISTORY: 58 years, Female, intubation COMPARISON: 01/05/2019 at 7:11 PM. Findings: Endotracheal tube is in place with tip in the merrick, approximately 1 cm above. Left subclavian CVC is in place. Mild left pleural effusion. No pneumothorax. Mild central pulmonary vascular congestion. Heart is moderately enlarged. Enteric tube appears to be coiled within the cervical esophagus. IMPRESSION: Endotracheal tube is in place. Enteric tube is coiled within the cervical esophagus.
--- NOTE | 2019-01-05 23:50 | RADIOLOGY REPORT (SQ) ---
EXAM DESCRIPTION: XR CHEST 1 VIEW COMPLETED DATE/TME: 01/05/2019 00:00 CLINICAL HISTORY: 58 years, Female, tube placement Compared to 01/05/2019 at 10:43 PM. FINDINGS: Enteric tube is in place with tip within the stomach. No free intraperitoneal air. Mild left pleural effusion. IMPRESSION: Enteric tube is in place with tip in the stomach.
[2019-01-05] MEDS: IPRATROPIUM BROMIDE 0.02% NEB 0.5 MG/2.5 ML AMPUL NEB SCH (23:53)
[2019-01-05] MEDS: LEVALBUTEROL HCL NEB 1.25 MG/3 ML AMPUL NEB SCH (23:53)
[2019-01-06] MEDS ORDERED: METHYLPREDNISOLONE INJ 125 MG/2 ML SDV IV ONE (00:30)
[2019-01-06] MEDS: METRONIDAZOLE 500 MG/NS RTU 500 MG/100 ML RTUPB IV SCH ×2 (00:33→06:15)
[2019-01-06] MEDS: DEXTROSE 5%-LACTATED RINGERS 1,000 ML IV PRN (00:33)
[2019-01-06] MEDS ORDERED: MIDAZOLAM HCL 50 MG/100 ML RTUINJ IV PRN (00:33)
[2019-01-06 00:42] LABS: ARTERIAL BLOOD BASE EXCESS -3.1 mmol/L; ARTERIAL BLOOD H2CO3 1.52 mmol/L (1.05-1.35); ARTERIAL BLOOD HCO3 23.7 mmol/L (20-24); ARTERIAL BLOOD O2 SATURATION 93.4 % (94-98); ARTERIAL BLOOD PCO2 50.6 mmHg (35-45); ARTERIAL BLOOD PH 7.29 (7.35-7.45); ARTERIAL BLOOD PO2 75.1 mmHg (80-100); ARTERIAL BLOOD TOTAL CO2 25.3 mmol/L (21-25)
[2019-01-06 00:46] LABS: ARTERIAL BLOOD FIO2 32%
[2019-01-06 01:22] LABS: CREATINE KINASE MB 10.4 ng/mL (<4.55)
[2019-01-06] MEDS: MIDAZOLAM HCL 50 MG/100 ML RTUINJ IV PRN ×3 (01:25→16:40)
[2019-01-06 01:46] LABS: TROPONIN I 0.128 ng/mL
[2019-01-06] MEDS: RINGERS SOLUTION,LACTATED 1,000 ML IV PRN ×2 (02:30→06:13)
[2019-01-06] MEDS ORDERED: NOREPINEPHRINE BITARTRATE INJ/PF 4 MG/4 ML SDV IV ONE (03:04)
[2019-01-06] MEDS: DEXTROSE 5%-WATER 250 ML with NOREPINEPHRINE BITARTRATE 4 MG IV PRN ×6 (03:20→17:57)
--- NOTE | 2019-01-06 05:30 | PDOC H&P ---
History of Present Illness Admission Date/PCP: 01/05/2019 19:44 No local PCP Patient complains of: Altered mental status History of Present Illness: SUSANA MART is a 58 year old female who presented to the emergency room via EMS from home with acute altered mental status (lethargy). Patient was poorly responsive and breathing rapidly at home prompting family to call EMS. Upon EMS arrival the patient was found to have a blood glucose of 35, a lactic acid of 12.9, a heart rate of 218 (sinus tachycardia) and tachypnea with a respiratory rate of 50. Patient responded only to painful stimuli and then only with withdrawal from the stimulus. Patient is unable to provide historical inf ormation at this time due to her acute encephalopathy. A family member has provided information that patient had been suffering from nausea and vomiting for approximately 1 week with very little oral intake of either food or fluids. The family member further indicates that the patient's current status developed acutely on the day of admission. In the emergency room she treated immediately with fluids and was given 1 amp of bicarbonate prior to obtaining laboratory specimens. When laboratory was obtained she was found to have a pH of 7.04 and a bicarbonate level of 12. She was noted to continue to be tachycardic in sinus rhythm and continued to be tachypneic and was also hypotensive. A urinalysis showed a urine ketones of 80. Patient was subsequently admitted to the ICU for further evaluation treatment of her severe sepsis with septic shock. Past Medical History Past Medical History: Due to the patient's inability to respond secondary to her lethargy and acute encephalopathy, past medical history, past surgical history, social history and family medical history are obtained from the best available reliable sources. 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 Santiago Denies: Coronary Artery Disease, Myocardial Infarction Pulmonary Medical History: Reports: Asthma, Chronic Obstructive Pulmonary Disease (COPD) - Per radiographic results November 2018, Sleep Apnea - Suspected sleep apnea per Dr. Santiago EENT Medical History: Denies: Cataracts, Ears - Hearing aids Neurological Medical History: Reports: Migraine Denies: Hemorrhagic CVA, Ischemic CVA, Seizures Endocrine Medical History: Reports: Obesity Denies: Diabetes Mellitus Type 1, Diabetes Mellitus Type 2, Hyperthyroidism, Hypothyroidism Renal/ Medical History: Reports: Other - Retroperitoneal hematoma Denies: Chronic Kidney Disease, Nephrolithiasis Malignancy Medical History: Reports: None GI Medical History: Reports: Other - Chronic large right abdominal wall mass Denies: Cirrhosis, Crohn's Disease, Hepatitis, Ulcerative Colitis Musculoskeltal Medical History: Reports: Arthritis Denies: Gout Skin Medical History: Denies: Eczema, Psoriasis Psychiatric Medical History: Reports: Tobacco Dependency Denies: Alcohol Dependency, Substance Abuse Traumatic Medical History: Reports: None Hematology: Denies: Anemia, Bleeding Tendencies Infectious Medical History: Reports: None Past Surgical History Past Surgical History: Due to the patient's inability to respond secondary to her lethargy and acute encephalopathy, past medical history, past surgical history, social history and family medical history are obtained from the best available reliable sources. Past Surgical History: Reports: Hysterectomy Social History Information Source: Relative, COUNT INCLUDES THE [facility] Records Lives with: Family Smoking Status: Current Every Day Smoker Frequency of Alcohol Use: None Hx Recreational Drug Use: No Drugs: None Hx Prescription Drug Abuse: No Past Social History Note: Due to the patient's inability to respond secondary to her lethargy and acute encephalopathy, past medical history, past surgical history, social history and family medical history are obtained from the best available reliable sources. - Advance Directive Resuscitation Status: Full Code Surrogate healthcare decision maker:: Yang Lowery Family History Family History: Hypertension. denies: CAD Family History: Due to the patient's inability to respond secondary to her lethargy and acute encephalopathy, past medical history, past surgical history, social history and family medical history are obtained from the best available reliable sources. Parental Family History Reviewed: Yes Children Family History Reviewed: No Sibling(s) Family History Reviewed.: Yes Medication/Allergy Home Medications: Acetaminophen [Tylenol] 650 mg PO Q4HP PRN 01/05/19 Metoprolol Tartrate [Lopressor 50 mg Tablet] 75 mg PO BID 01/05/19 Ranitidine HCl [Zantac] 150 mg PO BID 01/05/19 Allergies/Adverse Reactions: amoxicillin [Amoxicillin] Allergy (Verified 12/10/18 16:30) ibuprofen Allergy (Verified 12/10/18 16:30) Penicillins Allergy (Verified 12/10/18 16:30) prednisone Allergy (Verified 12/13/18 09:54) Review of Systems ROS unobtainable: Other - Patient is unable to respond due to lethargy and acute encephalopathy Physical Exam Vital Signs: Temp Pulse Resp BP Pulse Ox 100.0 F 213 H 30 H 124/84 90 L 01/05/19 18:45 01/05/19 18:19 01/05/19 18:45 01/05/19 18:45 01/05/19 18:45 Intake & Output 01/03/19 01/04/19 01/05/19 23:59 23:59 23:59 Weight 107.4 kg General appearance: PRESENT: no acute distress, other - Lethargic and minimally responsive to verbal stimuli. Head exam: PRESENT: atraumatic, normocephalic, other - 3 cystic nodules (fixed to skull) are noted in the frontal region. Eye exam: PRESENT: conjunctiva pink. ABSENT: conjunctival injection, scleral icterus Ear exam: PRESENT: normal external ear exam. ABSENT: bleeding, drainage Mouth exam: PRESENT: dry mucosa, neck supple Neck exam: ABSENT: thyromegaly, tracheal deviation Respiratory exam: PRESENT: crackles - Prominent in the left lung mcpherson, prolonged expiratory phas - Mildly prolonged expiratory phase in all lung mcpherson, rhonchi - Prominent and central lung mcpherson, symmetrical, tachypnea, wheezes - Mild expiratory wheezes in all lung mcpherson Cardiovascular exam: PRESENT: RRR, tachycardia. ABSENT: clicks, gallop, rubs Pulses: PRESENT: normal radial pulses, normal dorsalis pedis pul - He has Vascular exam: ABSENT: normal capillary refill, pallor GI/Abdominal exam: PRESENT: hypoactive bowel sounds, mass - Large soft tissue firm mass involving the majority of the right abdominal wall., soft Rectal exam: PRESENT: deferred Extremities exam: ABSENT: joint swelling, pedal edema Musculoskeletal exam: ABSENT: deformity, dislocation Neurological exam: PRESENT: altered - Lethargic and poorly responsive to verbal stimuli, CN II-XII grossly intact, motor sensory deficit Psychiatric exam: PRESENT: other - Lethargic and poorly responsive to verbal stimuli thus unable to evaluate appropriately Skin exam: PRESENT: dry, intact, warm. ABSENT: jaundice, rash, urticaria Results Laboratory Results: 01/05/19 18:30 01/05/19 18:39 01/05/19 01/05/19 01/05/19 18:14 18:24 18:24 WBC Cancelled RBC Cancelled Hgb Cancelled Hct Cancelled MCV Cancelled MCH Cancelled MCHC Cancelled RDW Cancelled Plt Count Cancelled Seg Neutrophils % Cancelled VBG pH VBG pCO2 VBG HCO3 VBG Base Excess Sodium Cancelled Potassium Cancelled Chloride Cancelled Carbon Dioxide Cancelled Anion Gap Cancelled BUN Cancelled Creatinine Cancelled Est GFR ( Amer) Cancelled Est GFR (Non-Af Amer) Cancelled Glucose Cancelled Lactic Acid 13.0 H Calcium Cancelled Magnesium Cancelled Total Bilirubin Cancelled AST Cancelled Alkaline Phosphatase Cancelled Total Protein Cancelled Albumin Cancelled Urine Color Urine Appearance Urine pH Ur Specific [place] Urine Protein Urine Glucose (UA) Urine Ketones Urine Blood Urine Nitrite Ur Leukocyte Esterase Urine WBC (Auto) Urine RBC (Auto) 01/05/19 01/05/19 01/05/19 18:30 18:39 18:39 WBC 14.6 H RBC 3.64 L Hgb 10.5 L Hct 33.1 L MCV 91 MCH 28.8 MCHC 31.6 L RDW 16.9 H Plt Count 492 H Seg Neutrophils % 78.4 H VBG pH VBG pCO2 VBG HCO3 VBG Base Excess Sodium 134.4 L Potassium 4.7 Chloride 95 L Carbon Dioxide 12 L Anion Gap 27 H BUN 11 Creatinine 0.96 Est GFR ( Amer) > 60 Est GFR (Non-Af Amer) Glucose 86 Lactic Acid Calcium 9.4 Magnesium 1.9 Total Bilirubin 1.4 H AST 94 H Alkaline Phosphatase 92 Total Protein 6.9 Albumin 3.5 Urine Color RIKKI Urine Appearance SLIGHTLY-CLOUDY Urine pH 6.0 Ur Specific [place] 1.019 Urine Protein 100 H Urine Glucose (UA) NEGATIVE Urine Ketones 80 H Urine Blood NEGATIVE Urine Nitrite NEGATIVE Ur Leukocyte Esterase NEGATIVE Urine WBC (Auto) 2 Urine RBC (Auto) 2 01/05/19 18:39 WBC RBC Hgb Hct MCV MCH MCHC RDW Plt Count Seg Neutrophils % VBG pH 7.04 L* VBG pCO2 40.6 VBG HCO3 10.6 L VBG Base Excess -19.3 Sodium Potassium Chloride Carbon Dioxide Anion Gap BUN Creatinine Est GFR ( Amer) Est GFR (Non-Af Amer) Glucose Lactic Acid Calcium Magnesium Total Bilirubin AST Alkaline Phosphatase Total Protein Albumin Urine Color Urine Appearance Urine pH Ur Specific [place] Urine Protein Urine Glucose (UA) Urine Ketones Urine Blood Urine Nitrite Ur Leukocyte Esterase Urine WBC (Auto) Urine RBC (Auto) 01/05/19 01/05/19 01/05/19 18:14 18:24 18:39 Creatine Kinase Cancelled 321 H CK-MB (CK-2) 11.60 H Troponin I 0.058 Impressions: Chest X-Ray 01/05/19 18:10 IMPRESSION: No pneumothorax. Left perihilar and basilar consolidation. Probable left pleural effusion.Left subclavian central venous catheter tip overlies the SVC near the level of the merrick. Assessment and Plan - Diagnosis (1) Pneumonia involving left lung Qualifiers: Pneumonia type: due to unspecified organism Lung location: unspecified part of lung Qualified Code(s): J18.9 - Pneumonia, unspecified organism Is this a current diagnosis for this admission?: Yes Plan: Patient's pneumonia will be treated with a broad-spectrum antibiotic coverage protocol utilizing IV vancomycin, meropenem and metronidazole. Patient will receive a pulmonary toilet utilizing Xopenex and Atrovent delivered with a nebulizer. Patient will be treated with BiPAP initially to provide better oxygenation and alleviate the patient's severe tachypnea. Patient is also noted to have a high probability of sleep apnea and therefore will be on BiPAP at at bedtime on a regular basis during this hospitalization. Daily CBCs, metabolic profiles and magnesium levels as well as arterial blood gases will be obtained. Patient's chest x-ray will be repeated on a daily basis. (2) Severe sepsis with septic shock Is this a current diagnosis for this admission?: Yes Plan: Patient's severe sepsis with shock will be treated with high-volume IV fluid and close monitoring. Patient will be closely monitored in the ICU and may require blood pressure support with pressor agents such as Levophed. (3) Metabolic acidosis Is this a current diagnosis for this admission?: Yes Plan: The patient's metabolic acidosis is likely in part due to starvation ketoacidosis which would also explain her hypoglycemia. The patient's acidosis will be treated with IV fluids and a bicarbonate infusion. Frequent reassessments of the patient's metabolic status will be made until she is stable. She will be monitored in the ICU. (4) Asthma with COPD (chronic obstructive pulmonary disease) Is this a current diagnosis for this admission?: Yes Plan: Patient has underlying asthma/COPD and is a smoker. She will receive an aggressive pulmonary toilet as noted above. Her oxygen saturations and blood gases will be monitored closely throughout her hospital course. - Time Time Spent with patient: 25-34 minutes Medications reviewed and adjusted accordingly: Yes Anticipated discharge: Home - Inpatient Certification Based on my medical assessment, after consideration of the patient's comorbidities, presenting symptoms, or acuity I expect that the services needed warrant INPATIENT care.: Yes I certify that my determination is in accordance with my understanding of Medicare's requirements for reasonable and necessary INPATIENT services [42 CFR 412.3e].: Yes Medical Necessity: Need Close Monitoring Due to Risk of Patient Decompensation, Need For IV Fluids, Need For Continuous Telemetry Monitoring, Need for Nebulizer Therapy and Monitoring of Response, Need for IV Antibiotics, Risk of Comp lication if Not Cared For in Hospital
[2019-01-06] MEDS: HEPARIN SOD (PORCINE) 5,000 UNIT/ML 1 ML VIAL SUBCUT SCH ×3 (06:15→22:43)
[2019-01-06] MEDS: MEROPENEM 1 GM in NORMAL SALINE 50 ML IV SCH ×3 (06:16→22:43)
[2019-01-06 06:19] LABS: ARTERIAL BLOOD BASE EXCESS -0.3 mmol/L; ARTERIAL BLOOD H2CO3 0.94 mmol/L (1.05-1.35); ARTERIAL BLOOD HCO3 22.7 mmol/L (20-24); ARTERIAL BLOOD O2 SATURATION 97.8 % (94-98); ARTERIAL BLOOD PCO2 31.1 mmHg (35-45); ARTERIAL BLOOD PH 7.48 (7.35-7.45); ARTERIAL BLOOD PO2 95.7 mmHg (80-100); ARTERIAL BLOOD TOTAL CO2 23.6 mmol/L (21-25)
[2019-01-06 06:21] LABS: ARTERIAL BLOOD FIO2 30%
[2019-01-06 06:28] LABS: HEMATOCRIT 28.1 % (36.0-47.0); HEMOGLOBIN 9.6 g/dL (12.0-15.5); MEAN CORPUSCULAR HEMOGLOBIN 29.9 pg (27.0-33.4); MEAN CORPUSCULAR HGB CONC 33.9 g/dL (32.0-36.0); MEAN CORPUSCULAR VOLUME 88 fl (80-97); PLATELET COUNT 342 10^3/uL (150-450); RED BLOOD COUNT 3.19 10^6/uL (3.72-5.28); RED CELL DISTRIBUTION WIDTH 15.8 % (11.5-14.0); WHITE BLOOD COUNT 9.1 10^3/uL (4.0-10.5)
[2019-01-06 06:32] LABS: ALBUMIN 2.7 g/dL (3.5-5.0); ALKALINE PHOSPHATASE 83 U/L (38-126); ASPARTATE AMINO TRANSFERASE 107 U/L (14-36); BILIRUBIN,DIRECT 0.8 mg/dL (0.0-0.4); BILIRUBIN,TOTAL 1.1 mg/dL (0.2-1.3); BLOOD UREA NITROGEN 15 mg/dL (7-20); CALCIUM 8.5 mg/dL (8.4-10.2); CHLORIDE 93 mmol/L (98-107); CREATINE KINASE 287 U/L (30-135); GLUCOSE 152 mg/dL (75-110); PHOSPHORUS 2.6 mg/dL (2.5-4.5); TOTAL PROTEIN 5.6 g/dL (6.3-8.2)
[2019-01-06 06:44] LABS: ANION GAP 16 (5-19); CREATINE KINASE MB 12.6 ng/mL (<4.55); TROPONIN I 0.505 ng/mL
[2019-01-06 06:47] LABS: CARBON DIOXIDE 25 mmol/L (22-30); POTASSIUM 3.2 mmol/L (3.6-5.0)
[2019-01-06 06:48] LABS: FREE T3 2.72 pg/mL (2.77-5.27); FREE T4 (FREE THYROXINE) 1.94 ng/dL (0.78-2.19)
[2019-01-06 07:02] LABS: THYROID STIMULATING HORMONE 0.21 uIU/mL (0.47-4.68)
[2019-01-06] MEDS: MORPHINE SULFATE 10 MG/ML INJ IV PRN (07:49)
[2019-01-06] MEDS: POTASSIUM CHLORIDE 20 MEQ/50 ML RTU IV SCH ×2 (07:53→10:00)
[2019-01-06] MEDS: ACETAMINOPHEN 650 MG SUPP.RECT PR PRN ×2 (08:02→14:56)
--- NOTE | 2019-01-06 08:12 | EKG REPORT ---
SEVERITY:- ABNORMAL ECG - SUPRAVENTRICULAR TACHYCARDIA CONSIDER ANTEROSEPTAL INFARCT REPOLARIZATION ABNORMALITY, PROB RATE RELATED : Confirmed by: Cele Santiago MD 06-Jan-2019 08:12:30
--- NOTE | 2019-01-06 08:17 | RADIOLOGY REPORT (SQ) ---
EXAM DESCRIPTION: CHEST SINGLE VIEW COMPLETED DATE/TIME: 01/06/2019 6:08 am REASON FOR STUDY: Left-sided pneumonia COMPARISON: 01/05/2019 NUMBER OF VIEWS: One view. TECHNIQUE: Single frontal radiographic image of the chest acquired. LIMITATIONS: None. FINDINGS: LUNGS AND PLEURA: Stable appearance. MEDIASTINUM AND HILAR STRUCTURES: Stable heart size and mediastinal structures. HEART AND VASCULAR STRUCTURES: Stable appearance. SUPPORT DEVICES: Appropriate location without change. BONES: No acute findings. OTHER: No other significant finding. IMPRESSION: STABLE APPEARANCE OF THE CHEST. SUPPORT DEVICES UNCHANGED. TECHNICAL DOCUMENTATION: JOB ID: [id number] [employer]- All Rights Reserved Reading location - IP/workstation name: [email or web address]
[2019-01-06] MEDS: IPRATROPIUM BROMIDE 0.02% NEB 0.5 MG/2.5 ML AMPUL NEB SCH ×2 (08:22→15:22)
[2019-01-06] MEDS: LEVALBUTEROL HCL NEB 1.25 MG/3 ML AMPUL NEB SCH ×2 (08:22→15:22)
[2019-01-06] MEDS: BUDESONIDE NEB 0.5 MG/2 ML AMPUL NEB SCH ×2 (08:23→20:38)
[2019-01-06] MEDS: ACETYLCYSTEINE 20% SOLN 800 MG/4 ML VIAL.NEB NEB SCH ×2 (08:23→20:38)
[2019-01-06] MEDS: METHYLPREDNISOLONE INJ 40 MG/1 ML SDV IV SCH ×2 (09:22→22:43)
[2019-01-06] MEDS: VANCOMYCIN HCL 1,500 MG in DEXTROSE 5%-WATER 250 ML IV SCH ×2 (09:22→22:45)
[2019-01-06] MEDS: FAMOTIDINE INJ/PF 20 MG/2 ML SDV IV SCH ×2 (09:22→22:43)
[2019-01-06] MEDS ORDERED: RINGERS SOLUTION,LACTATED 1,000 ML IV PRN (10:45)
[2019-01-06] MEDS ORDERED: RINGERS SOLUTION,LACTATED 500 ML IV ONE (11:00)
[2019-01-06] MEDS: POTASSI CL 20 MEQ/50 ML RIDER 20 MEQ/50 ML RTUPB IV SCH ×2 (12:40→14:21)
[2019-01-06 13:19] LABS: ANION GAP 12 (5-19); BLOOD UREA NITROGEN 16 mg/dL (7-20); CALCIUM 8.4 mg/dL (8.4-10.2); CARBON DIOXIDE 26 mmol/L (22-30); CHLORIDE 93 mmol/L (98-107); CREATINE KINASE 392 U/L (30-135); GLUCOSE 148 mg/dL (75-110); POTASSIUM 3.7 mmol/L (3.6-5.0)
[2019-01-06 13:30] LABS: CREATINE KINASE MB 14.7 ng/mL (<4.55)
[2019-01-06 13:48] LABS: TROPONIN I 1.31 ng/mL
--- NOTE | 2019-01-06 18:48 | PDOC CONSULTATION ---
Consultation Consult Date: 01/06/19 Attending physician:: ISA PETERSON Provider Consulted: BELIA JAIMES Consult reason:: Concern of bleeding d/o History of Present Illness Admission Date/PCP: 01/05/19 19:48 Patient complains of: Nausea vomiting aspiration History of Present Illness: SUSANA MART is a 58 year old female who I previously saw 1 month ago when she was admitted with abdominal pain and was found to have on CT imaging a large right anterior abdominal subcutaneous hematoma, also had evidence of retroperitoneal hemorrhage, at that time in discussion she had areas of subcutaneous hematomas all along the forehead come and go in the preceding year causing headaches. Ultimately when she presented with this subcutaneous hem atoma she was in severe pain on IV pain medication ultimately the pain improved. We did a full bleeding work-up with factor VIII, 9, 7, 12 along with von Willebrand testing. The von Willebrand factor levels, antigen levels and factor VIII levels were normal but the multimer pattern was abnormal seemingly consistent with a von Willebrand type 2B abnormality. He was recommended that we retest her multimer levels. Since discharge patient is still been having abdominal pain and the abdominal hematoma has been increasing in size per her family member who is at bedside, she did seem to have resolution of the forehead hematomas but now over the last 24 hours she is noted new areas of forehead hematomas. She was basically found down and ultimately was felt she had aspirated while sleeping as she over the last few days has been vomiting in her sleep. Upon presentation she was hypotensive unresponsive blood glucose was 35 and patient was intubated for airway protection and has been on aggressive fluid hydration, and is currently on pressors. Upon examination her abdominal hematoma that I remember from about 1 month ago has greatly increased in size and there are new forehead hematomas. 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 Santiago Denies: Coronary Artery Disease, Myocardial Infarction Pulmonary Medical History: Reports: Asthma, Chronic Obstructive Pulmonary Disease (COPD) - Per radiographic results November 2018, Sleep Apnea - Suspected sleep apnea per Dr. Santiago EENT Medical History: Denies: Cataracts, Ears - Hearing aids Neurological Medical History: Reports: Migraine Denies: Hemorrhagic CVA, Ischemic CVA, Seizures Endocrine Medical History: Reports: Obesity Denies: Diabetes Mellitus Type 1, Diabetes Mellitus Type 2, Hyperthyroidism, Hypothyroidism Renal/ Medical History: Reports: Other - Retroperitoneal hematoma Denies: Chronic Kidney Disease, Nephrolithiasis Malignancy Medical History: Reports: None GI Medical History: Reports: Other - Chronic large right abdominal wall mass Denies: Cirrhosis, Crohn's Disease, Hepatitis, Ulcerative Colitis Musculoskeltal Medical History: Reports: Arthritis Denies: Gout Skin Medical History: Denies: Eczema, Psoriasis Psychiatric Medical History: Reports: Tobacco Dependency Denies: Alcohol Dependency, Substance Abuse Traumatic Medical History: Reports: None Hematology: Denies: Anemia, Bleeding Tendencies Infectious Medical History: Reports: None Past Surgical History Past Surgical History: Reports: Hysterectomy Social History Information Source: Patient Lives with: Family Smoking Status: Current Every Day Smoker Frequency of Alcohol Use: None Hx Recreational Drug Use: No Drugs: None Hx Prescription Drug Abuse: No - Advance Directive Resuscitation Status: Full Code Family History Family History: Hypertension. denies: CAD Parental Family History Reviewed: Yes Children Family History Reviewed: Yes Sibling(s) Family History Reviewed.: Yes Medication/Allergy Home Medications: Acetaminophen [Tylenol] 650 mg PO Q4HP PRN 01/05/19 Metoprolol Tartrate [Lopressor 50 mg Tablet] 75 mg PO BID 01/05/19 Ranitidine HCl [Zantac] 150 mg PO BID 01/05/19 Allergies/Adverse Reactions: amoxicillin [Amoxicillin] Allergy (Verified 12/10/18 16:30) ibuprofen Allergy (Verified 12/10/18 16:30) Penicillins Allergy (Verified 12/10/18 16:30) prednisone Allergy (Verified 12/13/18 09:54) Review of Systems ROS unobtainable: Due to endotracheal tube, Due to mental status Physical Exam Vital Signs: Temp Pulse Resp BP Pulse Ox 101.3 F H 107 H 23 H 104/51 L 99 01/06/19 18:14 01/06/19 18:00 01/06/19 18:14 01/06/19 18:14 01/06/19 18:14 Intake & Output 01/05/19 01/06/19 01/07/19 06:59 06:59 06:59 Intake Total 3307 3535 Output Total 105 245 Balance 3202 3290 Weight 106.9 kg General appearance: PRESENT: no acute distress Head exam: PRESENT: other - Multiple forehead hematomas Eye exam: PRESENT: conjunctiva pink, EOMI, PERRLA. ABSENT: scleral icterus Mouth exam: PRESENT: dry mucosa, other - Some blood output from the NG, apparent ly was a traumatic NG insertion Neck exam: ABSENT: carotid bruit, JVD, lymphadenopathy, thyromegaly Respiratory exam: PRESENT: clear to auscultation jared. ABSENT: rales, rhonchi, wheezes Cardiovascular exam: PRESENT: RRR. ABSENT: diastolic murmur, rubs, systolic murmur GI/Abdominal exam: PRESENT: other - Large hard mass right abdomen consistent with hematoma that is enlarged Rectal exam: PRESENT: deferred Neurological exam: PRESENT: other - Intubated and sedated Psychiatric exam: PRESENT: other - Seems appropriately sedated Results Laboratory Results: 01/06/19 06:15 01/06/19 12:05 01/05/19 01/05/19 01/05/19 18:00 18:14 18:24 WBC Cancelled RBC Cancelled Hgb Cancelled Hct Cancelled MCV Cancelled MCH Cancelled MCHC Cancelled RDW Cancelled Plt Count Cancelled Seg Neutrophils % Cancelled Carbonic Acid 1.47 H HCO3/H2CO3 Ratio 12:1 ABG pH 7.18 L* ABG pCO2 49.0 H ABG pO2 110.8 H ABG HCO3 17.7 L ABG O2 Saturation 96.8 ABG Base Excess -10.4 VBG pH VBG pCO2 VBG HCO3 VBG Base Excess FiO2 100% Sodium Potassium Chloride Carbon Dioxide Anion Gap BUN Creatinine Est GFR ( Amer) Est GFR (Non-Af Amer) Glucose Lactic Acid 13.0 H Calcium Phosphorus Magnesium Total Bilirubin AST Alkaline Phosphatase Total Protein Albumin TSH Free T4 Free T3 pg/mL Urine Color Urine Appearance Urine pH Ur Specific Stewart Urine Protein Urine Glucose (UA) Urine Ketones Urine Blood Urine Nitrite Ur Leukocyte Esterase Urine WBC (Auto) Urine RBC (Auto) 01/05/19 01/05/19 01/05/19 18:24 18:30 18:39 WBC 14.6 H RBC 3.64 L Hgb 10.5 L Hct 33.1 L MCV 91 MCH 28.8 MCHC 31.6 L RDW 16.9 H Plt Count 492 H Seg Neutrophils % 78.4 H Carbonic Acid HCO3/H2CO3 Ratio ABG pH ABG pCO2 ABG pO2 ABG HCO3 ABG O2 Saturation ABG Base Excess VBG pH VBG pCO2 VBG HCO3 VBG Base Excess FiO2 Sodium Cancelled 134.4 L Potassium Cancelled 4.7 Chloride Cancelled 95 L Carbon Dioxide Cancelled 12 L Anion Gap Cancelled 27 H BUN Cancelled 11 Creatinine Cancelled 0.96 Est GFR ( Amer) Cancelled > 60 Est GFR (Non-Af Amer) Cancelled Glucose Cancelled 86 Lactic Acid Calcium Cancelled 9.4 Phosphorus Magnesium Cancelled 1.9 Total Bilirubin Cancelled 1.4 H AST Cancelled 94 H Alkaline Phosphatase Cancelled 92 Total Protein Cancelled 6.9 Albumin Cancelled 3.5 TSH Free T4 Free T3 pg/mL Urine Color Urine Appearance Urine pH Ur Specific Stewart Urine Protein Urine Glucose (UA) Urine Ketones Urine Blood Urine Nitrite Ur Leukocyte Esterase Urine WBC (Auto) Urine RBC (Auto) 01/05/19 01/05/19 01/05/19 18:39 18:39 23:55 WBC RBC Hgb Hct MCV MCH MCHC RDW Plt Count Seg Neutrophils % Carbonic Acid HCO3/H2CO3 Ratio ABG pH ABG pCO2 ABG pO2 ABG HCO3 ABG O2 Saturation ABG Base Excess VBG pH 7.04 L* VBG pCO2 40.6 VBG HCO3 10.6 L VBG Base Excess -19.3 FiO2 Sodium Potassium Chloride Carbon Dioxide Anion Gap BUN Creatinine Est GFR ( Amer) Est GFR (Non-Af Amer) Glucose Lactic Acid 7.1 H Calcium Phosphorus Magnesium Total Bilirubin AST Alkaline Phosphatase Total Protein Albumin TSH Free T4 Free T3 pg/mL Urine Color RIKKI Urine Appearance SLIGHTLY-CLOUDY Urine pH 6.0 Ur Specific Stewart 1.019 Urine Protein 100 H Urine Glucose (UA) NEGATIVE Urine Ketones 80 H Urine Blood NEGATIVE Urine Nitrite NEGATIVE Ur Leukocyte Esterase NEGATIVE Urine WBC (Auto) 2 Urine RBC (Auto) 2 01/05/19 01/06/19 01/06/19 23:55 05:40 05:40 WBC RBC Hgb Hct MCV MCH MCHC RDW Plt Count Seg Neutrophils % Carbonic Acid 1.52 H 0.94 L HCO3/H2CO3 Ratio 15:1 24:1 ABG pH 7.29 L 7.48 H ABG pCO2 50.6 H 31.1 L ABG pO2 75.1 L 95.7 ABG HCO3 23.7 22.7 ABG O2 Saturation 93.4 L 97.8 ABG Base Excess -3.1 -0.3 VBG pH VBG pCO2 VBG HCO3 VBG Base Excess FiO2 32% 30% Sodium 133.7 L Potassium 3.2 L D Chloride 93 L Carbon Dioxide 25 D Anion Gap 16 BUN 15 Creatinine 1.09 Est GFR ( Amer) > 60 Est GFR (Non-Af Amer) Glucose 152 H Lactic Acid Calcium 8.5 Phosphorus 2.6 Magnesium 1.8 Total Bilirubin 1.1 AST 107 H Alkaline Phosphatase 83 Total Protein 5.6 L Albumin 2.7 L TSH Free T4 Free T3 pg/mL Urine Color Urine Appearance Urine pH Ur Specific Stewart Urine Protein Urine Glucose (UA) Urine Ketones Urine Blood Urine Nitrite Ur Leukocyte Esterase Urine WBC (Auto) Urine RBC (Auto) 01/06/19 01/06/19 01/06/19 05:40 06:15 06:15 WBC 9.1 RBC 3.19 L Hgb 9.6 L Hct 28.1 L MCV 88 MCH 29.9 MCHC 33.9 RDW 15.8 H Plt Count 342 Seg Neutrophils % Carbonic Acid HCO3/H2CO3 Ratio ABG pH ABG pCO2 ABG pO2 ABG HCO3 ABG O2 Saturation ABG Base Excess VBG pH VBG pCO2 VBG HCO3 VBG Base Excess FiO2 Sodium Potassium Chloride Carbon Dioxide Anion Gap BUN Creatinine Est GFR ( Amer) Est GFR (Non-Af Amer) Glucose Lactic Acid 7.9 H Calcium Phosphorus Magnesium Total Bilirubin AST Alkaline Phosphatase Total Protein Albumin TSH 0.21 L Free T4 1.94 Free T3 pg/mL 2.72 L Urine Color Urine Appearance Urine pH Ur Specific Stewart Urine Protein Urine Glucose (UA) Urine Ketones Urine Blood Urine Nitrite Ur Leukocyte Esterase Urine WBC (Auto) Urine RBC (Auto) 01/06/19 01/06/19 12:05 12:05 WBC RBC Hgb Hct MCV MCH MCHC RDW Plt Count Seg Neutrophils % Carbonic Acid HCO3/H2CO3 Ratio ABG pH ABG pCO2 ABG pO2 ABG HCO3 ABG O2 Saturation ABG Base Excess VBG pH VBG pCO2 VBG HCO3 VBG Base Excess FiO2 Sodium 131.4 L Potassium 3.7 Chloride 93 L Carbon Dioxide 26 Anion Gap 12 BUN 16 Creatinine 1.02 Est GFR ( Amer) > 60 Est GFR (Non-Af Amer) Glucose 148 H Lactic Acid 6.4 H Calcium 8.4 Phosphorus Magnesium Total Bilirubin AST Alkaline Phosphatase Total Protein Albumin TSH Free T4 Free T3 pg/mL Urine Color Urine Appearance Urine pH Ur Specific Stewart Urine Protein Urine Glucose (UA) Urine Ketones Urine Blood Urine Nitrite Ur Leukocyte Esterase Urine WBC (Auto) Urine RBC (Auto) 01/05/19 01/05/19 01/05/19 18:14 18:14 18:24 Creatine Kinase Cancelled CK-MB (CK-2) 11.60 H Troponin I 0.058 NT-Pro-B Natriuret Pep 15075 H 01/05/19 01/05/19 01/05/19 18:39 23:55 23:55 Creatine Kinase 321 H 243 H CK-MB (CK-2) 10.40 H Troponin I 0.128 NT-Pro-B Natriuret Pep 01/06/19 01/06/19 01/06/19 05:40 05:40 12:05 Creatine Kinase 287 H 392 H CK-MB (CK-2) 12.60 H Troponin I 0.505 NT-Pro-B Natriuret Pep 01/06/19 12:05 Creatine Kinase CK-MB (CK-2) 14.70 H Troponin I 1.310 NT-Pro-B Natriuret Pep Impressions: Chest X-Ray 01/06/19 06:00 IMPRESSION: STABLE APPEARANCE OF THE CHEST. SUPPORT DEVICES UNCHANGED. Status: Image reviewed by me Assessment & Plan - Diagnosis (1) Von Willebrand disease, type IIb Is this a current diagnosis for this admission?: Yes Plan: Very concerning that she may have von Willebrand's disease, repeat confirmatory testing has been sent and I have discussed with lab how to appropriately send it out this should be done tomorrow morning. However we will not have those results for several days. I am concerned that ultimately she may require factor infusion, and if we are to give Humate-P infusions we will need to be able to monitor her factor VIII levels, we would not be able to appropriately monitor that here. We will go ahead and get CT of the abdomen pelvis noncontrasted to see what the hematoma looks like compared to previous if it is as expected worsened and there is any evidence of active bleeding we may need to transfer her to a tertiary center that we will be able to appropriately give factor and monitor appropriate factor VIII levels. (2) Abdominal wall hematoma Qualifiers: Encounter type: initial encounter Qualified Code(s): S30.1XXA - Contusion of abdominal wall, initial encounter Is this a current diagnosis for this admission?: Yes Plan: Plan for repeat CT of the abdomen pelvis without contrast, plan as above based upon study - Time Time Spent: Greater than 70 Minutes - [id number] - Inpatient Certification Based on my medical assessment, after consideration of the patient's comorbidities, presenting symptoms, or acuity I expect that the services needed warrant INPATIENT care.: Yes I certify that my determination is in accordance with my understanding of Medicare's requirements for reasonable and necessary INPATIENT services [42 CFR 412.3e].: Yes Medical Necessity: Need Close Monitoring Due to Risk of Patient Decompensation, Need For Continuous Telemetry Monitoring, Risk of Complication if Not Cared For in Hospital
[2019-01-07] MEDS: MIDAZOLAM HCL 50 MG/100 ML RTUINJ IV PRN ×3 (00:14→17:10)
[2019-01-07] MEDS: LEVALBUTEROL HCL NEB 1.25 MG/3 ML AMPUL NEB SCH ×3 (00:50→16:13)
[2019-01-07] MEDS: IPRATROPIUM BROMIDE 0.02% NEB 0.5 MG/2.5 ML AMPUL NEB SCH ×3 (00:50→16:12)
[2019-01-07] MEDS: DEXTROSE 5%-WATER 250 ML with NOREPINEPHRINE BITARTRATE 4 MG IV PRN ×2 (01:20)
[2019-01-07] MEDS ORDERED: ADENOSINE INJ/PF 6 MG/2 ML SDV IV ONE ×2 (04:44→05:03)
[2019-01-07] MEDS ORDERED: METOPROLOL TARTRATE PF/INJ 5 MG/5 ML SDV IV ONE (05:09)
[2019-01-07] MEDS ORDERED: AMIODARONE HCL INJ 150 MG/3 ML VIAL IV ONE (05:10)
[2019-01-07] MEDS ORDERED: DILTIAZEM HCL INJ 25 MG/5 ML VIAL ONE (05:18)
[2019-01-07] MEDS ORDERED: MIDAZOLAM 2 MG/2 ML INJ ONE (05:24)
[2019-01-07] MEDS ORDERED: VECURONIUM BROMIDE INJ 10 MG VIAL IV ONE (05:30)
[2019-01-07] MEDS ORDERED: DILTIAZEM HCL/D5W 125 MG/125 ML RTUINJ IV ONE (05:34)
[2019-01-07] MEDS: DILTIAZEM HCL/D5W 125 MG/125 ML RTUINJ IV PRN ×2 (05:39→18:10)
[2019-01-07 06:16] LABS: CALCIUM 8.3 mg/dL (8.4-10.2); HEMATOCRIT 29.7 % (36.0-47.0); MEAN CORPUSCULAR HEMOGLOBIN 29.4 pg (27.0-33.4); MEAN CORPUSCULAR HGB CONC 33.7 g/dL (32.0-36.0); MEAN CORPUSCULAR VOLUME 87 fl (80-97); PLATELET COUNT 330 10^3/uL (150-450); RED CELL DISTRIBUTION WIDTH 15.3 % (11.5-14.0); WHITE BLOOD COUNT 10.6 10^3/uL (4.0-10.5)
[2019-01-07 06:17] LABS: ABSOLUTE LYMPHOCYTES# (MANUAL) 0.5 10^3/uL (0.5-4.7); ABSOLUTE MONOCYTES # (MANUAL) 0.2 10^3/uL (0.1-1.4); ALBUMIN 2.9 g/dL (3.5-5.0); ALKALINE PHOSPHATASE 92 U/L (38-126); ANION GAP 13 (5-19); ANISOCYTOSIS SLIGHT; ASPARTATE AMINO TRANSFERASE 171 U/L (14-36); BASOPHILS % (MANUAL) 0 % (0-2); BLOOD UREA NITROGEN 22 mg/dL (7-20); CARBON DIOXIDE 26 mmol/L (22-30); CHLORIDE 94 mmol/L (98-107); EOSINOPHILS % (MANUAL) 0 % (0-6); GLUCOSE 155 mg/dL (75-110); LYMPHOCYTES % (MANUAL) 5 % (13-45); MONOCYTES % (MANUAL) 2 % (3-13); PLATELET COMMENT ADEQUATE; POTASSIUM 3.9 mmol/L (3.6-5.0); SEGMENTED NEUTROPHILS % (MAN) 93 % (42-78); TOTAL CELLS COUNTED 100
[2019-01-07 06:18] LABS: BILIRUBIN,DIRECT 0.8 mg/dL (0.0-0.4); BILIRUBIN,TOTAL 1.2 mg/dL (0.2-1.3)
[2019-01-07 06:20] LABS: CREATINE KINASE 957 U/L (30-135); CREATINE KINASE MB 14.8 ng/mL (<4.55); TOTAL PROTEIN 5.9 g/dL (6.3-8.2)
[2019-01-07 06:21] LABS: TROPONIN I 3.77 ng/mL
[2019-01-07 06:21] LABS: ARTERIAL BLOOD BASE EXCESS 1.5 mmol/L; ARTERIAL BLOOD FIO2 30%; ARTERIAL BLOOD H2CO3 0.85 mmol/L (1.05-1.35); ARTERIAL BLOOD HCO3 23.4 mmol/L (20-24); ARTERIAL BLOOD O2 SATURATION 97.2 % (94-98); ARTERIAL BLOOD PCO2 28.2 mmHg (35-45); ARTERIAL BLOOD PH 7.54 (7.35-7.45); ARTERIAL BLOOD PO2 80.7 mmHg (80-100); ARTERIAL BLOOD TOTAL CO2 24.3 mmol/L (21-25)
[2019-01-07] MEDS: HEPARIN SOD (PORCINE) 5,000 UNIT/ML 1 ML VIAL SUBCUT SCH ×2 (06:48→13:37)
[2019-01-07] MEDS: MEROPENEM 1 GM in NORMAL SALINE 50 ML IV SCH ×2 (06:49→13:38)
[2019-01-07] MEDS ORDERED: PHENYLEPHRINE HCL INJ/PF 10 MG/1 ML SDV ONE ×2 (07:04→08:03)
--- NOTE | 2019-01-07 08:14 | PDOC PROGRESS REPORT ---
Subjective Progress Note for:: 01/07/19 Subjective:: Unfortunately overnight patient had several runs of V. tach, patient changed from Levophed to Kareem-Synephrine. More hypotensive this morning. CT was not able to be done overnight because of instability. Yesterday, I had a long discussion with pharmacy locally here along with begin the transfer process with julian, spoke with the hematology/oncology fellow on- call who spoke with the attending sec reporting consultant Day Goss, they do feel like they can manage her at [facility] because they do have a continuous supply of Humate-P and ability to follow factor VIII levels appropriately. I spoke with the counter roller who will need to call the transfer center at [facility] and begin the transfer process through ICU to ICU transfer. CT will be done this morning to evaluate the hematoma and to see if there is any other active bleeding. Reason For Visit: ACUTE METABOLIC ACIDOSIS,ACUTE ENCEPHALOPATHY, Physical Exam Vital Signs: Temp Pulse Resp BP Pulse Ox 101.1 F H 112 H 29 H 143/69 H 97 01/07/19 02:19 01/07/19 00:50 01/07/19 00:50 01/07/19 02:19 01/07/19 03:37 Intake & Output 01/06/19 01/07/19 01/08/19 06:59 06:59 06:59 Intake Total 3307 4236 Output Total 105 505 Balance 3202 3731 Weight 106.9 kg General appearance: PRESENT: no acute distress, well-developed, well-nourished Head exam: PRESENT: atraumatic, normocephalic Eye exam: PRESENT: conjunctiva pink, EOMI, PERRLA. ABSENT: scleral icterus Ear exam: PRESENT: normal external ear exam Mouth exam: PRESENT: moist, tongue midline Neck exam: ABSENT: carotid bruit, JVD, lymphadenopathy, thyromegaly Respiratory exam: PRESENT: clear to auscultation jared. ABSENT: rales, rhonchi, wheezes Cardiovascular exam: PRESENT: RRR. ABSENT: diastolic murmur, rubs, systolic murmur Pulses: PRESENT: normal dorsalis pedis pul Vascular exam: PRESENT: normal capillary refill GI/Abdominal exam: PRESENT: normal bowel sounds, soft. ABSENT: distended, guarding, mass, organolmegaly, rebound, tenderness Rectal exam: PRESENT: deferred Extremities exam: PRESENT: full ROM. ABSENT: calf tenderness, clubbing, pedal edema Neurological exam: PRESENT: alert, awake, oriented to person, oriented to place, oriented to time, oriented to situation, CN II-XII grossly intact. ABSENT: motor sensory deficit Psychiatric exam: PRESENT: appropriate affect, normal mood. ABSENT: homicidal ideation, suicidal ideation Skin exam: PRESENT: dry, intact, warm. ABSENT: cyanosis, rash Results Laboratory Results: 01/07/19 04:55 01/07/19 04:55 01/06/19 01/06/19 01/07/19 12:05 12:05 04:45 WBC RBC Hgb Hct MCV MCH MCHC RDW Plt Count Seg Neutrophils % Carbonic Acid 0.85 L HCO3/H2CO3 Ratio 27:1 ABG pH 7.54 H ABG pCO2 28.2 L ABG pO2 80.7 ABG HCO3 23.4 ABG O2 Saturation 97.2 ABG Base Excess 1.5 FiO2 30% Sodium 131.4 L Potassium 3.7 Chloride 93 L Carbon Dioxide 26 Anion Gap 12 BUN 16 Creatinine 1.02 Est GFR ( Amer) > 60 Glucose 148 H Lactic Acid 6.4 H Calcium 8.4 Magnesium Total Bilirubin AST Alkaline Phosphatase Total Protein Albumin 01/07/19 01/07/19 04:55 04:55 WBC 10.6 H RBC 3.40 L Hgb 10.0 L Hct 29.7 L MCV 87 MCH 29.4 MCHC 33.7 RDW 15.3 H Plt Count 330 Seg Neutrophils % Not Reportable Carbonic Acid HCO3/H2CO3 Ratio ABG pH ABG pCO2 ABG pO2 ABG HCO3 ABG O2 Saturation ABG Base Excess FiO2 Sodium 133.3 L Potassium 3.9 Chloride 94 L Carbon Dioxide 26 Anion Gap 13 BUN 22 H Creatinine 0.83 Est GFR ( Amer) > 60 Glucose 155 H Lactic Acid Calcium 8.3 L Magnesium 2.0 Total Bilirubin 1.2 AST 171 H Alkaline Phosphatase 92 Total Protein 5.9 L Albumin 2.9 L 01/05/19 01/05/19 01/05/19 18:14 18:14 18:24 Creatine Kinase Cancelled CK-MB (CK-2) 11.60 H Troponin I 0.058 NT-Pro-B Natriuret Pep 55015 H 01/05/19 01/05/19 01/05/19 18:39 23:55 23:55 Creatine Kinase 321 H 243 H CK-MB (CK-2) 10.40 H Troponin I 0.128 NT-Pro-B Natriuret Pep 01/06/19 01/06/19 01/06/19 05:40 05:40 12:05 Creatine Kinase 287 H 392 H CK-MB (CK-2) 12.60 H Troponin I 0.505 NT-Pro-B Natriuret Pep 01/06/19 01/07/19 01/07/19 12:05 04:55 04:55 Creatine Kinase 957 H CK-MB (CK-2) 14.70 H 14.80 H Troponin I 1.310 3.770 NT-Pro-B Natriuret Pep Assessment & Plan - Diagnosis (1) Von Willebrand disease, type IIb Is this a current diagnosis for this admission?: Yes Plan: I do believe this is truly von Willebrand's disease, needs factor infusion I believe, unfortunately we do not have any factor in house. We could not borrow any factor from any local hospitals either. Apparently Humate-P is on back order so we are not able to get much of a supply. Repeat testing will be done this morning but results will be several days. (2) Abdominal wall hematoma Qualifiers: Encounter type: subsequent encounter Qualified Code(s): S30.1XXD - Contusion of abdominal wall, subsequent encounter Is this a current diagnosis for this admission?: Yes Plan: CT pending this morning, plan as above - Time Time Spent with patient: 35 or more minutes
--- NOTE | 2019-01-07 08:26 | RADIOLOGY REPORT (SQ) ---
EXAM DESCRIPTION: CHEST SINGLE VIEW COMPLETED DATE/TIME: 01/07/2019 6:15 am REASON FOR STUDY: Left-sided pneumonia COMPARISON: AP view of the chest from 01/06/2019 EXAM PARAMETERS: NUMBER OF VIEWS: One view. TECHNIQUE: Single frontal radiographic view of the chest acquired. RADIATION DOSE: NA LIMITATIONS: None. FINDINGS: The tip of the endotracheal tube projects 2.5 cm above the merirck. The tip of the enteric tube projects past the gastroesophageal junction and outside the field of view of the radiograph. T he tip of the left-sided central venous catheter projects within the SVC. The cardiac silhouette is borderline enlarged. The pulmonary vasculature is within normal limits. The mediastinal and hilar c ontours are unchanged. The asymmetric airspace opacity in the left base is unchanged. The left lateral costophrenic sulcus is blunted. There is no pneumothorax. IMPRESSION: 1. Tubes and lines as above. 2. Unchanged asymmetric airspace opacity in the left base and left pleural effusion. TECHNICAL DOCUMENTATION: JOB ID: [id number] [employer]- All Rights Reserved Reading location - IP/workstation name: [email or web address]
[2019-01-07 08:28] LABS: ARTERIAL BLOOD BASE EXCESS -1.3 mmol/L; ARTERIAL BLOOD H2CO3 0.85 mmol/L (1.05-1.35); ARTERIAL BLOOD HCO3 21.3 mmol/L (20-24); ARTERIAL BLOOD O2 SATURATION 99.4 % (94-98); ARTERIAL BLOOD PCO2 28.3 mmHg (35-45); ARTERIAL BLOOD PH 7.49 (7.35-7.45); ARTERIAL BLOOD PO2 181.5 mmHg (80-100); ARTERIAL BLOOD TOTAL CO2 22.1 mmol/L (21-25)
[2019-01-07 08:30] LABS: ARTERIAL BLOOD FIO2 60%
[2019-01-07] MEDS: ACETYLCYSTEINE 20% SOLN 800 MG/4 ML VIAL.NEB NEB SCH (08:36)
[2019-01-07] MEDS: BUDESONIDE NEB 0.5 MG/2 ML AMPUL NEB SCH (08:36)
[2019-01-07] MEDS ORDERED: DEXTROSE 5%-WATER 250 ML with PHENYLEPHRINE HCL 40 MG IV PRN ×2 (08:49)
--- NOTE | 2019-01-07 09:20 | PDOC PROGRESS REPORT ---
Subjective Progress Note for:: 01/07/19 Subjective:: 01/06 Hospitalist Patient complains of: Altered mental status History of Present Illness: SUSANA MART is a 58 year old female who presented to the emergency room via EMS from home with acute altered mental status (lethargy). Patient was poorly responsive and breathing rapidly at home prompting family to call EMS. Upon EMS arrival the patient was found to have a blood glucose of 35, a lactic acid of 12.9, a heart rate of 218 (sinus tachycardia) and tachypnea with a respiratory rate of 50. Patient responded only to painful stimuli and then only with withdrawal from the stimulus. Patient is unable to provide historical information at this time due to her acute encephalopathy. A family member has provided information that patient had been suffering from nausea and vomiting for approximately 1 week with very little oral intake of either food or fluids. The family member further indicates that the patient's current status developed acutely on the day of admission. In the emergency room she treated immediately with fluids and was given 1 amp of bicarbonate prior to obtaining laboratory specimens. When laboratory was obtained she was found to have a pH of 7.04 and a bicarbonate level of 12. She was noted to continue to be tachycardic in sinus rhythm and continued to be tachypneic and was also hypotensive. A urinalysis showed a urine ketones of 80. Patient was subsequently admitted to the ICU for further evaluation treatment of her severe sepsis with septic shock. 01/06 11AM The patient remains in shock. She is on the ventilator. She is on 10 mcg of levophed presently She is sedated on the ventilator with a versed infusions At present her urine output is poor. 01/07 I had to come into the [facility] 4:30-5AM. The patient had developed a tachyarrhythmia. It appeared to be Atrial flutter with a 2:1 block. The patient had been given a single dose of Adenocard without response. I than gave the patient two separate doses of IV cardizem. The first 10 mg resulted in very transient slowing. the second dose of 20 mg slowed her down for several minutes down to the 80-100 range. The patient had her levophed turned off which had been , i joy triggering the arrhytmias. The patient received an additional 10mg IV Cardizem about 20 minutes later and 5 mg IV lopressor In addition she was tachypneic so we sedated her better and gave her one dose of Norcuron as she had become very tachypneic with a bit a respiratory alkalosis In time ,we started a cardizem drip at 10 mg/hr. When I left the heart rate was in the 80s with a decent blood pressure. I have s[latasha n to hem-onc. They would like the patient transferred to a larger center where they can treat her apparent factor deficiency. The patient apparently has VWB 2 and needs factor replenishment. becuse of the growth of this apparent hematoma she is undergoing repeat CT ando/pelvis. Her bp had been stable on levophed prior to the arrhythmia. He [facility] Reason For Visit: ACUTE METABOLIC ACIDOSIS,ACUTE ENCEPHALOPATHY, Acute respiratory failure. Pneumonia Physical Exam Vital Signs: Temp Pulse Resp BP Pulse Ox 100.4 F 82 20 95/52 L 82 L 01/07/19 08:00 01/07/19 08:00 01/07/19 08:00 01/07/19 08:00 01/07/19 08:00 Intake & Output 01/06/19 01/07/19 01/08/19 06:59 06:59 06:59 Intake Total 3307 4236 Output Total 105 505 20 Balance 3202 3731 -20 Weight 106.9 kg Physical Exam: The patient remains sedated on the ventialtor. Has OGT and ET tube in place General appearance: PRESENT: hard of hearing Head exam: PRESENT: atraumatic Eye exam: PRESENT: conjunctiva pink, PERRLA Mouth exam: PRESENT: moist, neck supple Neck exam: PRESENT: full ROM. ABSENT: meningismus Additional comments: Bilateral BS, slightly diminished at the left base Murmur grade: 3 - Loud systolic murmur in the aortic focus. Pulses: PRESENT: normal carotid pulses, +2 pedal pulses bilateral Vascular exam: PRESENT: normal capillary refill GI/Abdominal exam: PRESENT: firm Additonal comments: large very form area extending across the right side of abdomen a ciouple of finger breaths below the costal margin across the midline and extending almost to the pelvis. Rectal exam: PRESENT: deferred Additional comments: sedated on the ventialtor Results Laboratory Results: 01/07/19 04:55 01/07/19 04:55 01/06/19 01/06/19 01/07/19 12:05 12:05 04:45 WBC RBC Hgb Hct MCV MCH MCHC RDW Plt Count Seg Neutrophils % Carbonic Acid 0.85 L HCO3/H2CO3 Ratio 27:1 ABG pH 7.54 H ABG pCO2 28.2 L ABG pO2 80.7 ABG HCO3 23.4 ABG O2 Saturation 97.2 ABG Base Excess 1.5 FiO2 30% Sodium 131.4 L Potassium 3.7 Chloride 93 L Carbon Dioxide 26 Anion Gap 12 BUN 16 Creatinine 1.02 Est GFR ( Amer) > 60 Glucose 148 H Lactic Acid 6.4 H Calcium 8.4 Magnesium Total Bilirubin AST Alkaline Phosphatase Total Protein Albumin 01/07/19 01/07/19 01/07/19 04:55 04:55 07:18 WBC 10.6 H RBC 3.40 L Hgb 10.0 L Hct 29.7 L MCV 87 MCH 29.4 MCHC 33.7 RDW 15.3 H Plt Count 330 Seg Neutrophils % Not Reportable Carbonic Acid 0.85 L HCO3/H2CO3 Ratio 25:1 ABG pH 7.49 H ABG pCO2 28.3 L ABG pO2 181.5 H ABG HCO3 21.3 ABG O2 Saturation 99.4 H ABG Base Excess -1.3 FiO2 60% Sodium 133.3 L Potassium 3.9 Chloride 94 L Carbon Dioxide 26 Anion Gap 13 BUN 22 H Creatinine 0.83 Est GFR ( Amer) > 60 Glucose 155 H Lactic Acid Calcium 8.3 L Magnesium 2.0 Total Bilirubin 1.2 AST 171 H Alkaline Phosphatase 92 Total Protein 5.9 L Albumin 2.9 L 01/05/19 01/05/19 01/05/19 18:14 18:14 18:24 Creatine Kinase Cancelled CK-MB (CK-2) 11.60 H Troponin I 0.058 NT-Pro-B Natriuret Pep 93564 H 01/05/19 01/05/19 01/05/19 18:39 23:55 23:55 Creatine Kinase 321 H 243 H CK-MB (CK-2) 10.40 H Troponin I 0.128 NT-Pro-B Natriuret Pep 01/06/19 01/06/19 01/06/19 05:40 05:40 12:05 Creatine Kinase 287 H 392 H CK-MB (CK-2) 12.60 H Troponin I 0.505 NT-Pro-B Natriuret Pep 01/06/19 01/07/19 01/07/19 12:05 04:55 04:55 Creatine Kinase 957 H CK-MB (CK-2) 14.70 H 14.80 H Troponin I 1.310 3.770 NT-Pro-B Natriuret Pep Impressions: Chest X-Ray 01/07/19 06:00 IMPRESSION: 1. Tubes and lines as above. 2. Unchanged asymmetric airspace opacity in the left base and left pleural effusion. Assessment & Plan - Diagnosis (1) Asthma with COPD (chronic obstructive pulmonary disease) Is this a current diagnosis for this admission?: Yes Plan: The patient developed hypoxemic, hypercapneic respiratory failure requiring respiratory support. She was very tachypneic prior to that and and had become obtunded 01/07 The patient ios on 60% FI02 .can proabbly tolerate lower FI02. Her CXR shows a small effusion +/_ infiltrate at theleft base unchanged. Her last ABG reflects a slight respiratory alkalosis. (2) Metabolic acidosis Is this a current diagnosis for this admission?: Yes Plan: The patient presented with a metabolic aciodis. I believe it is primarily a metabolic NAG acidosis related to her shock. However, the patient had trouble eating for several days and there may have been an element of starvation ketoacidosis as well. At resnret her last pH was 7.48 so no need for bicarb. 01/07 her scidosis has resolved and was principiappally to shock (3) Pneumonia involving left lung Qualifiers: Pneumonia type: aspiration pneumonia Lung location: unspecified part of lung Is this a current diagnosis for this admission?: Yes Plan: The patient has an abbnomrla appearing left lung Resp. culutre and blood culutres were ordered. At present she ius empirically being covered with Merrem and Vanco Did get a dose of levaquin in the ED. Will obtain strep pn. and Legionella Urine Ags. If necessary we can perform a BAL 01/07 Her sputum culutre nor blodd culturte ahs growna an organism . Her sputum gram stain does show GPcs in pairs and short chains ( ? Strep). (4) Severe sepsis with septic shock Is this a current diagnosis for this admission?: Yes Plan: The epatioent presentedted with shock and pregressive obtundation. She has been receiving fluid resuscitation. The patient isd on about 10 mcg of Levophed presently as well. BP has been pretyt stable thepast several hours. 01/07 her shock is improving and she is off of pressors. Did need a samll bolus after her tachyarrhythmia. We are continuing the empiric abx coverage wwith Micheln and Vanco at this point. The likely source was pulmoanry. (5) Abdominal wall hematoma Qualifiers: Encounter type: subsequent encounter Qualified Code(s): S30.1XXD - Contusion of abdominal wall, subsequent encounter Is this a current diagnosis for this admission?: Yes Plan: The patient has a huge organized hematoma involving the right abdominal wall that has been there at least 1 month and grown in size. She had a CT scan done 1 montha go showing this to be the case. Jayson internal organs appeared to be ok. Apparently th epatient underwent a workup the last time she was here which showed aloss of high miolecular weight multimers consistent with possible VWB diswease.We willask hem -Onc to see the patient (Celso). 01/07 As noted thepatient is getting a repat CT of abdo/pelvis. her Hb has been stable. Hem feels and the records reflect the hematoma had increased in size fairly marssively since her last discharge. (6) Von Willebrand disease type 2b Is this a current diagnosis for this admission?: Yes Plan: Heme bleieves the patient's spontaneous hemorrhages and br=using are the result of a VWB factor deficeincy. He woud llike thepatient transferred where she can get VWB factor replacement (7) Atrial flutter, paroxysmal Is this a current diagnosis for this admission?: Yes Plan: The patient developed difficult to controil Atrialfluter with rate from 150-170 overnight untilgetting a large dose of IV Cardizem, metoprolol and stopping he rlevophed.She appears rtto be back in NSR at this time.
--- NOTE | 2019-01-07 09:27 | RADIOLOGY REPORT (SQ) ---
EXAM DESCRIPTION: CT ABD/PELVIS NO ORAL OR IV COMPLETED DATE/TIME: 01/07/2019 8:52 am REASON FOR STUDY: evaluate retroperitoneal hematoma COMPARISON: CT of the abdomen and pelvis from 12/10/2018 TECHNIQUE: CT scan of the abdomen and pelvis performed without intravenous or oral contrast. Images reviewed with lung, soft tissue, and bone windows. Reconstructed coronal and sagittal MPR images revi ewed. All images stored on PACS. All CT scanners at this facility use dose modulation, iterative reconstruction, and/or weight based d osing when appropriate to reduce radiation dose to as low as reasonably achievable (ALARA). [facility]: Dose Right [facility]: CareDose [facility]: Dose Right [facility]: Teradose 4D [facility]: [employer] RADIATION DOSE: CT Rad equipment meets quality standard of care and radiation dose reduction techniq ues were employed. CTDIvol: 28.6 mGy. DLP: 1609 mGy-cm.mGy. LIMITATIONS: None. FINDINGS: LOWER CHEST: Areas of consolidation with interspersed bronchograms in the bilateral lower lobes. The heart is enlarged. There is no pericardial effusion. NON-CONTRASTED LIVER, SPLEEN, ADRENALS: Evaluation is limited due to the absence of intravenous contr ast. The liver morphology is non cirrhotic. There is no CT evidence of hepatic steatosis. The punc price hypodensity within hepatic segment 4 is unchanged. The geographic area of hypoattenuation in he patic segment 2 along the falciform ligament could represent an area of hepatic steatosis. The splee n is normal in size. There is no abnormality of the adrenal glands. PANCREAS: The relative effacement of a normal interdigitating fat in the region of the pancreatic hea d and proximal body is unchanged. GALLBLADDER: No abnormality that is apparent on CT. RIGHT KIDNEY AND URETER: Evaluation is limited due to the absence of intravenous contrast. There is no hydronephrosis, nephrolithiasis, hydroureter or ureterolithiasis. LEFT KIDNEY AND URETER: Evaluation is limited due to the absence of intravenous contrast. There is n o hydronephrosis, nephrolithiasis, hydroureter or ureterolithiasis. AORTA AND RETROPERITONEUM: The abdominal aorta is nonaneurysmal. The stranding in the pararenal spac e and left retroperitoneum (anterior to the iliopsoas muscle) has increased from 12/10/2018. The ilio psoas muscles are symmetric in size and there is no evidence of a retroperitoneal hematoma. BOWEL AND PERITONEAL CAVITY: The tip of the enteric tube terminates within the gastric lumen. There are diverticula in the sigmoid colon without other ancillary findings to suggest an acute diverticuli tis. There is no bowel wall thickening or evidence of obstruction. The amount of subcutaneous stranding and hyperdensity in the right anterolateral abdomen has increase d from 12/10/2018. There is also asymmetric stranding/ edema along the anterolateral aspect of the lef t hemiabdomen extending from the left upper to the right lower quadrants. APPENDIX: Unable to visualize the appendix PELVIS, BLADDER, AND ABDOMINAL WALL:There is a Pleitez catheter within the urinary bladder. BONES: No acute findings. OTHER: No other finding. IMPRESSION: Limited noncontrast enhanced CT. Compared to 12/10/2018, and the size of the subcutaneou s hematoma in the right anterolateral abdomen has increased. The amount if the subcutaneous edema al diana the anterolateral aspect of the left abdomen has also increased from that prior CT, but there is no focal hyperdensity in the area to suggest a hematoma. There is along increased stranding along th e posterior renal fasciae but there is no crescentic hyperdensity in the perirenal space to indicate a subcapsular hematoma. There is also no asymmetric enlargement of the iliopsoas muscle to suggest a retroperitoneal hematoma. The appearance of the pancreas with relative effacement of the normal int erdigitating fat in the region of the pancreatic head and body is unchanged. COMMENT: Quality ID # [id number]: Final reports with documentation of one or more dose reduction techniques (e.g., Automated exposure control, adjustment of the mA and/or kV according to patient size, use of iterative reconstruction technique) TECHNICAL DOCUMENTATION: JOB ID: [id number] [employer]- All Rights Reserved Reading location - IP/workstation name: [email or web address]
[2019-01-07] MEDS: RINGERS SOLUTION,LACTATED 1,000 ML IV PRN ×2 (10:00→18:44)
[2019-01-07 10:15] LABS: PHOSPHORUS 2.9 mg/dL (2.5-4.5)
[2019-01-07 10:22] LABS: VANCOMYCIN,TROUGH 17.8 ug/mL (5.0-20.0)
[2019-01-07] MEDS ORDERED: ALTEPLASE INJ 2 MG VIAL (CATH CLEARANCE) IV ONE (10:30)
[2019-01-07] MEDS: MORPHINE SULFATE 10 MG/ML INJ IV PRN (10:39)
[2019-01-07] MEDS: FAMOTIDINE INJ/PF 20 MG/2 ML SDV IV SCH (10:43)
[2019-01-07] MEDS: METHYLPREDNISOLONE INJ 40 MG/1 ML SDV IV SCH (10:43)
[2019-01-07] MEDS: VANCOMYCIN HCL 1,500 MG in DEXTROSE 5%-WATER 250 ML IV SCH (10:43)
[2019-01-07 13:25] LABS: CREATINE KINASE MB 9.77 ng/mL (<4.55); TROPONIN I 3.54 ng/mL
[2019-01-07] MEDS ORDERED: ALTEPLASE INJ 2 MG VIAL (CATH CLEARANCE) ONE (13:41)
--- NOTE | 2019-01-07 17:15 | PDOC DISCHARGE SUMMARY ---
General - Admit/Disc Date/PCP Admission Date/Primary Care Provider: 01/05/19 19:48 This patient presented with fever, altered mental status, acute respiratory failure She was intubated becuse of significant obtundation and hypoxemia. She was on pressors initally and at it's highest was on levophed of 10 mcg/minute. CxR appeared to show pneumonia confirmed by CAT scan abdo/pelvis today. The patient has not grown an organism is nculture. has been treated with a regimen of Vanco and Zosyn ( thelatter scited as an allergy but does not truly appear to be so). Th epatient developed rapid Atrial flutter this AM nescessitating multiple aliquots of IV Cardizem and than a cardizem drip. Her levophed which appeared to be driving the arrhytmia was discontinued. the patient remains on neosynephrine 50 mcg/min Th epoatient has been seen by Hematology and apparently has what appears to be V on Willebrands type abnrmality. She developed a spontaneous hematoma of her face several months ago. About 1 month ago she develpoped a sppontaneoussright sided intramural hematoma which has organixzed and is verylarge in the right sode of her abdomen. there apparently was right ssided psoas nbleed and perinephric hemorrhage at that time as well. 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 her hB remains stable in the 120 range. I bleieve thpatientcan likelty be weaned in the near future ) nexrt 24 hours).She has a left subclavian CVP placed on admission,ET and OGT and cuevas. Discharge Date: 01/07/19 - Discharge Diagnosis (1) Asthma with COPD (chronic obstructive pulmonary disease) Is this a current diagnosis for this admission?: Yes Summary: The patient is on the ventialtior. She is not actively wheezing presently. The opatient is on IMV of 20 , FI02 of 40% and pEEP of 8 (2) Metabolic acidosis Is this a current diagnosis for this admission?: Yes Summary: The metabolic acidosis originally attributable to poor po intake and shock have resolved. (3) Pneumonia involving left lung Is this a current diagnosis for this admission?: Yes (4) Severe sepsis with septic shock Is this a current diagnosis for this admission?: Yes Summary: The oatient remains on a small dose of Neosyneprine about 50 mcg/min presently (5) Abdominal wall hematoma Is this a current diagnosis for this admission?: Yes (6) Von Willebrand disease type 2b Is this a current diagnosis for this admission?: Yes (7) Atrial flutter, paroxysmal Is this a current diagnosis for this admission?: Yes (8) Von Willebrand disease type 2b Is this a current diagnosis for this admission?: Yes Summary: The patient was recently discoveered to have Von Willebrands disease . She has recentlt had right retroperitonela hemoirrhager and a hue firm hematoma mass in theright side of her abdomen. Hb has been stable. Hematology believes she may need factor replacement and has spokemn to your hematology person. (9) IHSS (idiopathic hypertrophic subaortic stenosis) Is this a current diagnosis for this admission?: Yes Summary: This porobably contributed to the apatient;'s prpoendsity for her Atrial flutter. The resting LVOT was abiout 75mmHg whenECHO was performed on . Thereis moderate AMARI. LVEF <> 75%. - Additional Information Resuscitation Status: Full Code Discharge Diet: Tube Feeding (Comments) Discharge Activity: Bedrest Home Medications: Acetaminophen [Tylenol] 650 mg PO Q4HP PRN 01/05/19 Metoprolol Tartrate [Lopressor 50 mg Tablet] 75 mg PO BID 01/05/19 Ranitidine HCl [Zantac] 150 mg PO BID 01/05/19 History of Present Illness History of Present Illness: SUSANA MART is a 58 year old female Hospital Course Hospital Course: as noted above Physical Exam Vital Signs: Temp Pulse Resp BP Pulse Ox 101.5 F H 80 21 H 98/57 L 100 01/07/19 14:49 01/07/19 14:00 01/07/19 14:49 01/07/19 14:49 01/07/19 14:49 Intake & Output 01/06/19 01/07/19 01/08/19 06:59 06:59 06:59 Intake Total 3307 4236 825 Output Total 105 580 260 Balance 3202 3656 565 Weight 106.9 kg 113.9 kg Murmur grade: 3 - Loud systolic murmur in the aortic focus. Pulses: PRESENT: +2 pedal pulses bilateral Vascular exam: PRESENT: normal capillary refill GI/Abdominal exam: PRESENT: normal bowel sounds Additonal comments: Large masslike density right abodmonal wall. Rectal exam: PRESENT: deferred Extremities exam: PRESENT: full ROM Results Laboratory Results: 01/07/19 04:55 01/07/19 04:55 01/07/19 01/07/19 01/07/19 04:45 04:55 04:55 WBC 10.6 H RBC 3.40 L Hgb 10.0 L Hct 29.7 L MCV 87 MCH 29.4 MCHC 33.7 RDW 15.3 H Plt Count 330 Seg Neutrophils % Not Reportable Carbonic Acid 0.85 L HCO3/H2CO3 Ratio 27:1 ABG pH 7.54 H ABG pCO2 28.2 L ABG pO2 80.7 ABG HCO3 23.4 ABG O2 Saturation 97.2 ABG Base Excess 1.5 FiO2 30% Sodium 133.3 L Potassium 3.9 Chloride 94 L Carbon Dioxide 26 Anion Gap 13 BUN 22 H Creatinine 0.83 Est GFR ( Amer) > 60 Glucose 155 H Calcium 8.3 L Phosphorus Magnesium 2.0 Total Bilirubin 1.2 AST 171 H Alkaline Phosphatase 92 Total Protein 5.9 L Albumin 2.9 L 01/07/19 01/07/19 07:18 09:45 WBC RBC Hgb Hct MCV MCH MCHC RDW Plt Count Seg Neutrophils % Carbonic Acid 0.85 L HCO3/H2CO3 Ratio 25:1 ABG pH 7.49 H ABG pCO2 28.3 L ABG pO2 181.5 H ABG HCO3 21.3 ABG O2 Saturation 99.4 H ABG Base Excess -1.3 FiO2 60% Sodium Potassium Chloride Carbon Dioxide Anion Gap BUN Creatinine Est GFR ( Amer) Glucose Calcium Phosphorus 2.9 Magnesium 2.0 Total Bilirubin AST Alkaline Phosphatase Total Protein Albumin 01/05/19 01/05/19 01/05/19 18:14 18:14 18:24 Creatine Kinase Cancelled CK-MB (CK-2) 11.60 H Troponin I 0.058 NT-Pro-B Natriuret Pep 18622 H 01/05/19 01/05/19 01/05/19 18:39 23:55 23:55 Creatine Kinase 321 H 243 H CK-MB (CK-2) 10.40 H Troponin I 0.128 NT-Pro-B Natriuret Pep 01/06/19 01/06/19 01/06/19 05:40 05:40 12:05 Creatine Kinase 287 H 392 H CK-MB (CK-2) 12.60 H Troponin I 0.505 NT-Pro-B Natriuret Pep 01/06/19 01/07/19 01/07/19 12:05 04:55 04:55 Creatine Kinase 957 H CK-MB (CK-2) 14.70 H 14.80 H Troponin I 1.310 3.770 NT-Pro-B Natriuret Pep 01/07/19 01/07/19 12:40 12:40 Creatine Kinase 865 H CK-MB (CK-2) 9.77 H Troponin I 3.540 NT-Pro-B Natriuret Pep Impressions: Chest X-Ray 01/07/19 06:00 IMPRESSION: 1. Tubes and lines as above. 2. Unchanged asymmetric airspace opacity in the left base and left pleural effusion. Abdomen/Pelvis CT 01/07/19 08:00 IMPRESSION: Limited noncontrast enhanced CT. Compared to 12/10/2018, and the size of the subcutaneous hematoma in the right anterolateral abdomen has increased. The amount if the subcutaneous edema along the anterolateral aspect of the left abdomen has also increased from that prior CT, but there is no focal hyperdensity in the area to suggest a hematoma. There is along increased stranding along the posterior renal fasciae but there is no crescentic hyperdensity in the perirenal space to indicate a subcapsular hematoma. There is also no asymmetric enlargement of the iliopsoas muscle to suggest a retroperitoneal hematoma. The appearance of the pancreas with relative effacement of the normal interdigitating fat in the region of the pancreatic head and body is unchanged. Qualifiers - * PATIENT BEING DISCHARGED WITH ANY OF THE FOLLOWING DIAGNOSIS: No, VTE (PE or DVT) VTE patient discharged on overlapping Therapy?: Yes Acute Heart Failure - Is this a Heart Failure Patient?: No Plan Discharge Plan: Transfer to [facility] for fiurther care of her sepsis, repsiratory failure and underlying Vobn Willebrands's syndrome.
[2019-01-07 18:23] VITALS: BP 104/57
[2019-01-07 19:25] LABS: CREATINE KINASE MB 7.14 ng/mL (<4.55); TROPONIN I 2.96 ng/mL
== END 2019-01-07 19:58 | disposition short-term general hospital (02) | DRG 871 ==
LOC: ER 18:06 → EH 19:48 → ICU 21:47
PROVIDERS: ADMIT Emergency Medicine; ATTEND Emergency Medicine
PROC: 02HV33Z Insertion of Infusion Device into Superior Vena Cava, Percutaneous Approach (ICD-10-PCS; principal; 2019-01-05)
PROC: 0BH17EZ Insertion of Endotracheal Airway into Trachea, Via Natural or Artificial Opening (ICD-10-PCS; 2019-01-05)
PROC: 5A1945Z Respiratory Ventilation, 24-96 Consecutive Hours (ICD-10-PCS; 2019-01-05)
DX: A41.9 Sepsis, unspecified organism (principal); J18.9 Pneumonia, unspecified organism; R65.21 Severe sepsis with septic shock; J96.01 Acute respiratory failure with hypoxia; J96.02 Acute respiratory failure with hypercapnia; D68.0 Von Willebrand disease; G93.40 Encephalopathy, unspecified; I42.1 Obstructive hypertrophic cardiomyopathy; E87.2 Acidosis; I48.92 Unspecified atrial flutter; J44.9 Chronic obstructive pulmonary disease, unspecified; I10 Essential (primary) hypertension; S30.1XXA Contusion of abdominal wall, initial encounter; R19.09 Other intra-abdominal and pelvic swelling, mass and lump; F17.210 Nicotine dependence, cigarettes, uncomplicated
CPT/HCPCS: 31500; 36415; 36600; 71045; 74176; 80053; 80202; 80307; 81001; 82550; 82553; 82803; 82962; 83036; 83605; 83735; 83880; 84100; 84439; 84443; 84481; 84484; 85025; 85027; 85247; 87040; 87070; 87077; 87086; 87205; 93005; 93010; 94002; 94003; 94640; 96361; 96365; 96375; 99285; J0153; J0282; J1644; J1956; J2185; J2250; J2270; J2370; J2704; J2920; J2930; J2997; J3370; J3480; J3490; J7060; J7120; J7121; J7614; S0028